=== PATIENT | male | born 1975 ===

== ENCOUNTER 2021-10-25 15:47 | Outpatient (REF) | payer OTHER, SELFPAY ==
[2021-10-25 16:06] LABS: COVID-19 Test Negative (Negative); IDNOW Serial# 16C4AD1C
== END 2021-10-25 15:48 | disposition home or self-care (01) ==
LOC: HO.LAB 15:47
PROVIDERS: Visit Provider Internal Medicine
DX: Z20.822 Contact with and (suspected) exposure to COVID-19 (principal)
CPT/HCPCS: 87635; C9803

== ENCOUNTER → 2022-10-22 09:35 | Outpatient (BNVA) | payer OTHER, SELFPAY | PROVIDERS: PCP Family Medicine; Visit Provider Physician Assistant | DX: Z13.89 Encounter for screening for other disorder (principal) ==

== ENCOUNTER → 2022-11-01 13:15 | Outpatient (BNVA) | payer OTHER, SELFPAY | PROVIDERS: PCP Family Medicine; Visit Provider Physician Assistant Surgical | DX: E66.01 Morbid (severe) obesity due to excess calories (principal); Z68.42 Body mass index [BMI] 45.0-49.9, adult; Z71.3 Dietary counseling and surveillance | CPT/HCPCS: 99202 ==

== ENCOUNTER → 2022-11-22 11:18 | Outpatient (BNVA) | payer OTHER, SELFPAY | PROVIDERS: PCP Family Medicine; Visit Provider Physician Assistant Surgical | DX: Z11.0 Encounter for screening for intestinal infectious diseases (principal); E66.01 Morbid (severe) obesity due to excess calories; Z68.42 Body mass index [BMI] 45.0-49.9, adult | CPT/HCPCS: 99211; 99212 ==

== ENCOUNTER 2022-11-22 18:13 | Outpatient (REF) | payer OTHER, SELFPAY ==
[2022-11-24 14:10] LABS: H Pylori Breath Test Positive (Negative)
== END 2022-11-22 18:14 | disposition home or self-care (01) ==
LOC: HO.LNP 18:13
PROVIDERS: Visit Provider Physician Assistant Surgical
DX: E66.01 Morbid (severe) obesity due to excess calories (principal)
CPT/HCPCS: 83013

== ENCOUNTER 2022-11-26 09:40 | Outpatient (REF) | payer OTHER, SELFPAY ==
--- NOTE | ~2022-11-26 | XR_ITS ---
EXAMINATION: XR CHEST CLINICAL INFORMATION: Reason for Exam E66.01 - Morbid (severe) obesity due to excess calories COMPARISON: None TECHNIQUE: 2 views of the chest FINDINGS: Clear lungs. No pneumothorax or pleural effusion. Borderline enlarged cardiac silhouette. XR/XR chest 2V IMPRESSION: Borderline enlarged cardiac silhouette.
--- NOTE | 2022-11-26 09:48 | ECG_ITS ---
Test Reason : Morbid obesity Blood Pressure : / mmHG Vent. Rate : 072 BPM Atrial Rate : 072 BPM P-R Int : 140 ms QRS Dur : 084 ms QT Int : 392 ms P-R-T Axes : 032 040 036 degrees QTc Int : 429 ms Normal sinus rhythm Normal ECG No previous ECGs available Referred By: Rhys Pitts Electronically Signed By:MERY SHETTY
[2022-11-26 09:59] LABS: MANUAL DIFF FLAG NO
[2022-11-26 10:50] LABS: Basophils Absolute Auto 0.1 X10*3/uL (0.0-0.2); Basophils Percent Auto 0.6 % (0-2); Eosinophils Absolute Auto 0.2 X10*3/uL (0.0-0.4); Eosinophils Percent Auto 2.7 % (0-4); Hematocrit 44.3 % (42.0-52.0); Hemoglobin 14.1 g/dl (14.0-18.0); Imm Gran Abs Auto 0.02 X10*3/uL (0.00-0.03); Imm Gran Pct Auto 0.2 % (0.0-0.4); Lymphocytes Absolute Auto 1.9 X10*3/uL (1.2-4.9); Lymphocytes Percent Auto 22.8 % (20-40); Mean Corpuscular HGB Conc 31.8 g/dl (31.0-36.0); Mean Corpuscular Hemoglobin 27.2 pg (27.0-33.0); Mean Corpuscular Volume 85.4 fL (80.0-98.0); Mean Platelet Volume 11.8 fL (9.4-12.4); Monocytes Absolute Auto 0.7 X10*3/uL (0.1-1.2); Monocytes Percent Auto 8.3 % (2-11); Neutrophils Absolute Auto 5.4 x10*3/uL (2.0-8.3); Neutrophils Percent Auto 65.4 % (45-73); Platelet Count 242 X10*3/uL (160-400); Red Blood Count 5.19 X10*6/uL (4.60-5.80); Red Cell Distribution Width 14.8 % (11.0-16.0); White Blood Count 8.3 X10*3/uL (4.8-10.8)
[2022-11-26 10:56] LABS: Estimated Average Glucose 131 mg/dL; Hemoglobin A1c % 6.2 %
[2022-11-26 11:42] LABS: Alanine Aminotransferase 40 U/L (0-40); Albumin Level 3.9 g/dL (3.5-5.0); Alkaline Phosphatase 92 U/L (39-117); Anion Gap 13 (12-20); Aspartate Amino Transferase 28 U/L (5-37); Bilirubin Total 0.5 mg/dL (0.0-1.0); Blood Urea Nitrogen 14 mg/dL (9-16); C Reactive Protein 3.14 mg/dL (< or = 0.50); Calcium 8.8 mg/dL (8.4-10.2); Carbon Dioxide 27 mmol/L (22-29); Chloride 105 mmol/L (96-108); Cholesterol 123 mg/dL; Estimated Glomerular Filt Rate > 60; Glucose Random 104 mg/dL (60-115); HDL Cholesterol 41 mg/dL; Iron 46 mcg/dL (45-160); LDL Cholesterol Calculated 67 mg/dl; Percent Iron Saturation 17 % (15-50); Potassium 4.3 mmol/L (3.3-5.1); Sodium 141 mmol/L (135-145); Total Iron Binding Capacity 276 mcg/dL (228-428); Total Protein 6.8 g/dL (6.5-8.0); Triglycerides 75 mg/dL; Unsaturated Iron Binding 230 ug/dL
[2022-11-26 12:24] LABS: Ferritin 64 ng/mL (20-250); Folate 8.1 ng/mL (> or = 4.0); Insulin 17 uU/mL (2-29); TSH reflex Free T4 1.89 uIU/mL (0.32-4.0); Vitamin B12 520 pg/mL (200-900); Vitamin D 25-OH Total 9.9 ng/mL (>30)
[2022-11-28 13:53] LABS: Calcium (PTHI) 9.5 mg/dL (8.6-10.3); PTHI 36 pg/mL (16-77)
[2022-11-29 12:33] LABS: Vitamin B1 8 nmol/L (8-30)
[2022-11-29 12:39] LABS: Zinc 68 mcg/dL (60-130)
[2022-11-29 19:13] LABS: Vitamin A 37 mcg/dL (38-98)
== END 2022-11-26 09:41 | disposition home or self-care (01) ==
LOC: HO.LAB 09:40
PROVIDERS: PCP Family Medicine; Visit Provider Physician Assistant Surgical
DX: E66.01 Morbid (severe) obesity due to excess calories (principal)
CPT/HCPCS: 36415; 71046; 80053; 80061; 82306; 82607; 82728; 82746; 83036; 83525; 83540; 83970; 84425; 84443; 84590; 84630; 85025; 86140; 93005

== ENCOUNTER → 2022-12-10 10:22 | Outpatient (BNVA) | payer OTHER, SELFPAY | PROVIDERS: PCP Family Medicine; Visit Provider Dietitian, Registered | DX: E66.01 Morbid (severe) obesity due to excess calories (principal); Z68.42 Body mass index [BMI] 45.0-49.9, adult; Z71.3 Dietary counseling and surveillance | CPT/HCPCS: 97802 ==

== ENCOUNTER 2022-12-18 09:55 | Outpatient (REF) | payer OTHER, SELFPAY ==
--- NOTE | ~2022-12-18 | US_ITS ---
EXAMINATION: US COMPLETE ABDOMEN WITH LIVER ELASTOGRAPHY CLINICAL INFORMATION: Morbid/severe obesity due to excess calories. COMPARISON: None available. TECHNIQUE: Real-time imaging of the abdominal viscera. Noninvasive ultrasound liver fibrosis assessment is performed using Dotty ElastPQ point quantification shear wave elastography (2D-SWE) with a C5-2 MHz transducer. Multiple elastography samples are obtained. FINDINGS: PANCREAS: Normal. The visualized pancreatic head and body are normal in appearance. The remainder of the pancreas is obscured from visualization by the overlying bowel gas. ABDOMINAL AORTA: The proximal, middle, and distal aortic segments are normal in caliber. INFERIOR VENA CAVA: Visualized portions are normal. LIVER: The liver demonstrates normal size, contour and increased echogenicity. No focal lesion or intrahepatic biliary duct dilatation. The right lobe measures 20.7 cm in length. The left lobe measures 15.6 cm in length. Portal flow is hepatopedal. Shear wave liver elastography median stiffness is 1.64 m/s (reference: normal median stiffness is 1.3 m/s or less). IQR/median stiffness to assess sampling precision is 0.08 (reference: good quality data set is IQR/median stiffness of 0.15 or less). GALLBLADDER: Normal. The gallbladder is physiologically distended without evidence of stones, sludge, polyps, wall thickening or pericholecystic fluid. COMMON BILE DUCT: Normal in caliber measuring 0.34 cm in diameter. RIGHT KIDNEY: Normal. No hydronephrosis. No renal calculi or focal parenchymal lesions. The kidney measures 12.0 cm in maximum dimension. LEFT KIDNEY: Normal. No hydronephrosis. No renal calculi or focal parenchymal lesions. The kidney measures 12.4 cm in maximum dimension. SPLEEN: Normal. The spleen measures 14.4 cm in maximum dimension. FREE FLUID: None. US/US abdomen comp w elastography IMPRESSION: 1. Mild hepatic steatosis without focal lesion. The rest of the abdominal ultrasound is unremarkable. 2. Liver elastography: Median liver stiffness measures 1.64 m/s corresponding to cACLD ruled out. REFERENCE: Society of Radiologists in Ultrasound Liver Stiffness Thresholds (2019): LIVER STIFFNESS THRESHOLDS: *Liver Stiffness equal or less than 1.3 m/s: High probability of being normal. *Liver Stiffness less than 1.7 m/s: In the absence of other known clinical signs, rules out compensated advanced chronic liver disease. *Liver Stiffness 1.7-2.1 m/s: Suggestive of compensated advanced chronic liver disease but need further test for confirmation. *Liver Stiffness over 2.1 m/s: Rules in compensated advanced chronic liver disease. *Liver Stiffness over 2.4 m/s: Suggestive of clinically significant portal hypertension. QUALITY OF DATA SET: *IQR/Median value equal or less than 0.15 implies a quality data set. *IQR/Median value over 0.15 implies a poor quality data set. SIGNIFICANT CHANGE FROM PRIOR EXAM: Significant change if liver stiffness measurement is 10% or greater from prior exam. OTHER CONSIDERATIONS: The stage of liver fibrosis may be overestimated in the setting of acute hepatitis, liver inflammation, elevated liver function tests, hepatic vascular congestion, obstructive cholestasis, non-fasting state, and infiltrative diseases such as amyloidosis and lymphoma. In some patients with NAFLD, the liver stiffness thresholds for compensated advanced chronic liver disease may be lower. In causes other than viral hepatitis and NAFLD, liver stiffness thresholds are not well established.
--- NOTE | ~2022-12-18 | FL_ITS ---
EXAMINATION: FL UPPER GI SERIES CLINICAL INFORMATION: Bariatric service evaluation. E66.01. COMPARISON: None TECHNIQUE: Upper GI series is performed using fluoroscopic evaluation in addition to multiple fluoroscopic spot views. The patient is imaged both upright and prone and using both thick and thin barium sulfate along with effervescent granules. Barium pill challenge also performed. Fluoroscopy time: 1.6 minutes DAP: 41.81 Gycm2 Fluoroscopic spot images: 15 FINDINGS: There is normal esophageal motility. There is no obstruction, stricture, ulceration, or hernia. There is mild gastroesophageal reflux only seen during water siphon test into the lower thoracic esophagus. No spontaneous reflux. Barium pill rapidly passes from mouth to stomach without delay. The stomach shows no thickened folds or ulcer crater or outlet obstruction. The duodenal bulb is pliable and without ulcer crater or scarring. The post bulbar duodenum the jejunal mucosal pattern are unremarkable. FL/FL upper GI w air IMPRESSION: -Mild gastroesophageal reflux only seen during water siphon test. No hernia. -No ulceration or scarring.
== END 2022-12-18 09:56 | disposition home or self-care (01) ==
LOC: HO.US 09:55
PROVIDERS: PCP Family Medicine; Visit Provider Physician Assistant Surgical
DX: Z01.818 Encounter for other preprocedural examination (principal); E66.01 Morbid (severe) obesity due to excess calories; K21.9 Gastro-esophageal reflux disease without esophagitis
CPT/HCPCS: 74246; 76705; 76981

== ENCOUNTER 2022-12-20 10:52 | Outpatient (REF) | payer OTHER, SELFPAY ==
[2022-12-21 11:32] LABS: H Pylori Breath Test Negative (Negative)
== END 2022-12-20 10:53 | disposition home or self-care (01) ==
LOC: HO.LNP 10:52
PROVIDERS: PCP Family Medicine; Visit Provider Physician Assistant Surgical
DX: Z01.818 Encounter for other preprocedural examination (principal); E66.01 Morbid (severe) obesity due to excess calories; A04.8 Other specified bacterial intestinal infections
CPT/HCPCS: 83013; 99211; 99212

== ENCOUNTER → 2023-01-13 11:00 | Outpatient (BNVA) | payer OTHER, SELFPAY | PROVIDERS: PCP Family Medicine; Visit Provider Counselor Mental Health ==

== ENCOUNTER → 2023-02-04 15:44 | Outpatient (BNVA) | payer OTHER, SELFPAY | PROVIDERS: PCP Family Medicine; Visit Provider Physician Assistant Surgical | DX: E66.01 Morbid (severe) obesity due to excess calories (principal); I10 Essential (primary) hypertension; Z68.42 Body mass index [BMI] 45.0-49.9, adult; Z79.891 Long term (current) use of opiate analgesic; Z79.899 Other long term (current) drug therapy | CPT/HCPCS: 99212 ==

== ENCOUNTER 2023-02-06 14:03 | Emergency (ER) | payer OTHER, SELFPAY ==
[2023-02-06 14:07] VITALS: BP 155/88; PULSE 80; RESP 16; TEMP 36.8; O2SAT 98; BMI 46.8
--- NOTE | 2023-02-06 14:41 | ECG_ITS ---
Test Reason : HTN Blood Pressure : / mmHG Vent. Rate : 069 BPM Atrial Rate : 069 BPM P-R Int : 154 ms QRS Dur : 088 ms QT Int : 398 ms P-R-T Axes : 013 027 035 degrees QTc Int : 426 ms Normal sinus rhythm Normal ECG When compared with ECG of 26-NOV-2022 09:59, No significant change was found Referred By: Jen Acosta Electronically Signed By:Tex Oglesby
[2023-02-06 15:02] LABS: MANUAL DIFF FLAG NO
[2023-02-06 15:09] LABS: Basophils Percent Auto 0.4 % (0-2); Eosinophils Absolute Auto 0.2 X10*3/uL (0.0-0.4); Eosinophils Percent Auto 1.4 % (0-4); Hematocrit 42.7 % (42.0-52.0); Hemoglobin 13.8 g/dl (14.0-18.0); Imm Gran Abs Auto 0.03 X10*3/uL (0.00-0.03); Imm Gran Pct Auto 0.3 % (0.0-0.4); Lymphocytes Absolute Auto 1.7 X10*3/uL (1.2-4.9); Lymphocytes Percent Auto 15.9 % (20-40); Mean Corpuscular HGB Conc 32.3 g/dl (31.0-36.0); Mean Corpuscular Hemoglobin 27.1 pg (27.0-33.0); Mean Corpuscular Volume 83.7 fL (80.0-98.0); Mean Platelet Volume 11.9 fL (9.4-12.4); Monocytes Absolute Auto 0.8 X10*3/uL (0.1-1.2); Platelet Count 239 X10*3/uL (160-400); Red Cell Distribution Width 14.2 % (11.0-16.0); White Blood Count 10.7 X10*3/uL (4.8-10.8)
[2023-02-06 15:22] LABS: Alanine Aminotransferase 28 U/L (0-40); Albumin Level 3.7 g/dL (3.5-5.0); Alkaline Phosphatase 98 U/L (39-117); Anion Gap 14 (12-20); Aspartate Amino Transferase 17 U/L (5-37); Bilirubin Total 0.3 mg/dL (0.0-1.0); Blood Urea Nitrogen 13 mg/dL (9-16); Calcium 9.1 mg/dL (8.4-10.2); Carbon Dioxide 26 mmol/L (22-29); Chloride 106 mmol/L (96-108); Creatinine Clr Calc Pharmacy 158.8; Estimated Glomerular Filt Rate > 60; Glucose Random 115 mg/dL (60-115); Magnesium 1.9 mg/dL (1.6-2.6); Potassium 4.3 mmol/L (3.3-5.1); Sodium 142 mmol/L (135-145); Total Protein 6.5 g/dL (6.5-8.0)
[2023-02-06 15:35] LABS: COVID-19 Test Negative (Negative); IDNOW Serial# BCCEAD1C
[2023-02-06 15:43] LABS: Troponin-I High Sensitivity < 2.7 ng/L (<3.5-35.0)
--- NOTE | 2023-02-06 16:25 | ED_ITS ---
HPI - General Adult General Chief complaint: Headache Stated complaint: high bp Time Seen by Provider: 02/06/23 16:24 Source: patient and family Limitations: no limitations History of Present Illness HPI narrative: 47-year-old male presents ER with a longstanding history of hypertension. Family member checked his blood pressure at home and it was elevated so they called the PCP through [facility] was advised to come the ER for further evaluation on his way to the ER patient felt some shortness of breath and headache. Patient states those symptoms have somewhat resolved. Patient states he only takes metoprolol for hypertension is compliant with that medication. Patient family states he is prediabetic but not on a medication at this time. At this time no chest pain or shortness of breath. Symptoms mild to moderate Related Data Home Medications Medication Instructions Recorded Confirmed acetaminophen 500 mg tablet 1,000 mg PO Q6H PRN fever 11/22/22 02/04/23 aspirin 81 mg tablet,delayed 81 mg PO DAILY 11/22/22 02/04/23 release buspirone 15 mg tablet 7.5 - 15 mg PO BID PRN anxiety 11/22/22 02/04/23 gabapentin 800 mg tablet 800 mg PO TID 11/22/22 02/04/23 methocarbamol 500 mg tablet 500 mg PO TID 11/22/22 02/04/23 metoprolol succinate 25 mg 12.5 mg PO DAILY 11/22/22 02/04/23 tablet,extended release 24 hr nortriptyline 50 mg capsule 50 mg PO BEDTIME 11/22/22 02/04/23 oxycodone 5 mg tablet 5 mg PO Q4H 11/22/22 02/04/23 tamsulosin 0.4 mg capsule 0.4 mg PO DAILY 11/22/22 02/04/23 topiramate 100 mg tablet 100 mg PO BID 11/22/22 02/04/23 Previous Rx's Medication Instructions Recorded cholecalciferol (vitamin D3) 125 125 mcg PO DAILY #90 caps 11/26/22 mcg (5,000 unit) capsule Allergies Allergy/AdvReac Type Severity Reaction Status Date / Time Opioids - Morphine Analogues Allergy Mild Swelling Verified 02/04/23 15:50 Review of Systems Review of Systems: General: No fever, no chills Ophthalmology: No vision changes, no discharge ENT: No sore throat, no ear pain Cardiovascular: No chest pain, no peripheral edema, no shortness of breath Respiratory: Patient had episode of shortness of breath which has since resolved no cough fever chills Muscle skeletal: No malaise, no back pain, no neck pain, no extremity pain GI: No abdominal pain: no nausea vomiting, no diarrhea Psychiatric: No depression, no suicidal ideation, no homicidal ideation Skin: No rash Neuro: Headache resolved Immunology: No immunocompromised Hematology: No bleeding, no bruising PMFSH Past Medical History Source: obtained from family Surgical History History of surgery on arm Hx of leg amputation Family History Family History Mother Carpal tunnel syndrome Fibromyalgia Asthma Father No problems noted. Daughter Asthma Daughter Asthma Daughter Asthma Daughter Asthma Son Asthma Son Asthma Son Asthma Social History Social History Alcohol intake: never Patient Tobacco Use Status: Never used Tobacco Advance Directives: No Physical Exam ED Vital Signs: Vital Signs - 24 hr 02/06/23 14:07 Temperature 98.3 F Pulse Rate 80 Respiratory Rate 16 Blood Pressure 155/88 H Pulse Oximetry 98 Oxygen Delivery Method Room Air BMI result Body Mass Index 46.8 General appearance: Awake, alert, cooperative, in no acute distress Skin: Warm, dry, no rash Eyes: PERRL, EOMI, no icterus, red reflex present ENT: Oropharynx normal, uvula midline Neck: Soft supple full range of motion Pulmonary: Breath sounds clear to auscultation bilaterally, no accessory muscle use Cardiovascular: Regular rate and rhythm, no murmurs and rubs Abdomen: Soft nontender, no rebound or guarding, positive bowel sounds Extremities: No deformity, nontender, no peripheral edema noted Neuro: Alert oriented x3, no focal deficit Psych: Normal affect Course Course Course Narrative: Hypertensive urgency Hypertensive emergency ACS less likely Dizziness Anxiety 47-year-old male with a history of hypertension presents with symptoms of elevated blood pressure when family Nicolás check at home. After pressure was noted to be elevated patient began to have symptoms of a headache and feeling somewhat nervous with some slight shortness of breath and chest discomfort. All symptoms have since resolved call PCP he was advised of the ER for further evaluation. EKG normal sinus rhythm at a rate of [address] elevation. All labs reviewed troponin less than 2.7 BUN creatinine are within normal limits CBC is unremarkable. Respiratory swab is negative Patient has follow-up with primary care tomorrow do not see any further need for workup at this time. Case discussed at length with patient and family would not add any antihypertensive medications at this time is patient seen the PCP in a.m.. Patient's blood pressure is much improved at this time. 16:45 all labs EKG and test results reviewed with patient and family we have made a decision as it care team to let the patient go at this time and follow-up with PCP tomorrow as scheduled. Overall a very low suspicion for ACS. Medical Decision Making Lab Data 02/06/23 14:56 02/06/23 14:56 Labs: Lab Results 02/06/23 02/06/23 02/06/23 Range/Units 14:56 14:56 14:56 WBC 10.7 (4.8-10.8) X10*3/uL RBC 5.10 (4.60-5.80) X10*6/uL Hgb 13.8 L (14.0-18.0) g/dl Hct 42.7 (42.0-52.0) % MCV 83.7 (80.0-98.0) fL MCH 27.1 (27.0-33.0) pg MCHC 32.3 (31.0-36.0) g/dl RDW 14.2 (11.0-16.0) % Plt Count 239 (160-400) X10*3/uL MPV 11.9 (9.4-12.4) fL Immature Gran % (Auto) 0.3 (0.0-0.4) % Neut % (Auto) 75.0 H (45-73) % Lymph % (Auto) 15.9 L (20-40) % [place] % (Auto) 7.0 (2-11) % Eos % (Auto) 1.4 (0-4) % Baso % (Auto) 0.4 (0-2) % Lymph # (Auto) 1.7 (1.2-4.9) X10*3/uL [place] # (Auto) 0.8 (0.1-1.2) X10*3/uL Eos # (Auto) 0.2 (0.0-0.4) X10*3/uL Baso # (Auto) 0.0 (0.0-0.2) X10*3/uL Abs Immat Gran (auto) 0.03 (0.00-0.03) X10*3/uL Absolute Neuts (auto) 8.0 (2.0-8.3) x10*3/uL Absolute Nucleated RBC 0.000 (0.0-0.012) X10*3/uL Nucleated RBC % (auto) 0.0 (0.0-0.2) /100WBC Sodium 142 (135-145) mmol/L Potassium 4.3 (3.3-5.1) mmol/L Chloride 106 (96-108) mmol/L Carbon Dioxide 26 (22-29) mmol/L Anion Gap 14 (12-20) BUN 13 (9-16) mg/dL Creatinine 0.83 (0.5-1.4) mg/dL Estim Creat Clear Calc 158.8 Estimated GFR > 60 Random Glucose 115 (60-115) mg/dL Calcium 9.1 (8.4-10.2) mg/dL Magnesium 1.9 (1.6-2.6) mg/dL Total Bilirubin 0.3 (0.0-1.0) mg/dL AST 17 (5-37) U/L ALT 28 (0-40) U/L Alkaline Phosphatase 98 (39-117) U/L Troponin I High Sens < 2.7 (<3.5-35.0) ng/L Total Protein 6.5 (6.5-8.0) g/dL Albumin 3.7 (3.5-5.0) g/dL COVID-19 ([facility]) (Negative) COVID-19 Clin Com 02/06/23 Range/Units 14:56 WBC (4.8-10.8) X10*3/uL RBC (4.60-5.80) X10*6/uL Hgb (14.0-18.0) g/dl Hct (42.0-52.0) % MCV (80.0-98.0) fL MCH (27.0-33.0) pg MCHC (31.0-36.0) g/dl RDW (11.0-16.0) % Plt Count (160-400) X10*3/uL MPV (9.4-12.4) fL Immature Gran % (Auto) (0.0-0.4) % Neut % (Auto) (45-73) % Lymph % (Auto) (20-40) % [place] % (Auto) (2-11) % Eos % (Auto) (0-4) % Baso % (Auto) (0-2) % Lymph # (Auto) (1.2-4.9) X10*3/uL [place] # (Auto) (0.1-1.2) X10*3/uL Eos # (Auto) (0.0-0.4) X10*3/uL Baso # (Auto) (0.0-0.2) X10*3/uL Abs Immat Gran (auto) (0.00-0.03) X10*3/uL Absolute Neuts (auto) (2.0-8.3) x10*3/uL Absolute Nucleated RBC (0.0-0.012) X10*3/uL Nucleated RBC % (auto) (0.0-0.2) /100WBC Sodium (135-145) mmol/L Potassium (3.3-5.1) mmol/L Chloride (96-108) mmol/L Carbon Dioxide (22-29) mmol/L Anion Gap (12-20) BUN (9-16) mg/dL Creatinine (0.5-1.4) mg/dL Estim Creat Clear Calc Estimated GFR Random Glucose (60-115) mg/dL Calcium (8.4-10.2) mg/dL Magnesium (1.6-2.6) mg/dL Total Bilirubin (0.0-1.0) mg/dL AST (5-37) U/L ALT (0-40) U/L Alkaline Phosphatase (39-117) U/L Troponin I High Sens (<3.5-35.0) ng/L Total Protein (6.5-8.0) g/dL Albumin (3.5-5.0) g/dL COVID-19 ([facility]) Negative (Negative) COVID-19 Clin Com See Note Discharge Plan Discharge Clinical Impression: Headache, Hypertension Patient Disposition: Home, Self-Care Instructions: Chronic Hypertension (ED) Additional Instructions: Return if symptoms worsen Follow-up with your PCP as scheduled for tomorrow Lab work today is within normal limits Return if any increased chest pain or shortness of breath Your PCP may add another antihypertensive medication Prescriptions: No Action cholecalciferol (vitamin D3) 125 mcg (5,000 unit) capsule 125 mcg PO DAILY Qty: 90 0RF oxycodone 5 mg tablet 5 mg PO Q4H gabapentin 800 mg tablet 800 mg PO TID nortriptyline 50 mg capsule 50 mg PO BEDTIME tamsulosin 0.4 mg capsule 0.4 mg PO DAILY aspirin 81 mg tablet,delayed release (DR/EC) 81 mg PO DAILY buspirone 15 mg tablet 7.5 - 15 mg PO BID PRN (Reason: anxiety) topiramate 100 mg tablet 100 mg PO BID metoprolol succinate 25 mg tablet extended release 24 hr 12.5 mg PO DAILY acetaminophen 500 mg tablet 1,000 mg PO Q6H PRN (Reason: fever) methocarbamol 500 mg tablet 500 mg PO TID
[2023-02-06 16:37] VITALS: BP 134/85; PULSE 71; RESP 20; TEMP 36.8; O2SAT 95
== END 2023-02-06 17:04 | disposition home or self-care (01) ==
PROVIDERS: Physician Assistant; Emergency Provider Emergency Medicine; PCP Family Medicine
DX: R51.9 Headache, unspecified (principal); I10 Essential (primary) hypertension; Z20.822 Contact with and (suspected) exposure to COVID-19; Z79.899 Other long term (current) drug therapy
CPT/HCPCS: 80053; 83735; 84484; 85025; 87635; 93005; 99283; 99284

== ENCOUNTER 2023-06-02 18:53 | Emergency (ER) | payer OTHER, SELFPAY ==
--- NOTE | ~2023-06-02 | XR_ITS ---
EXAMINATION: XR KNEE, LEFT CLINICAL INFORMATION: Swelling post fall COMPARISON: None available. TECHNIQUE: Four views of the left knee. FINDINGS: Small moderate size knee joint effusion. Degenerative changes seen with loss of joint space more so in the lateral compartment where small osteophyte formation. No acute fracture or dislocation XR/XR knee LT 4V IMPRESSION: Small to moderate size knee joint effusion.
[2023-06-02 20:21] VITALS: BP 119/69; PULSE 74; RESP 18; TEMP 36.6; O2SAT 95; BMI 47.1
--- NOTE | 2023-06-02 20:22 | ED.LOWEXIN ---
HPI - Extremity Injury (Lower) General Chief Complaint: Extremity Injury, Lower Stated Complaint: fell 9/10 left knee swollen Time Seen by Provider: 06/03/23 00:07 Source: patient and family Mode of arrival: wheelchair Limitations: no limitations History of Present Illness HPI Narrative: Patient comes to the emergency room complaining of left knee pain. Patient states that yesterday he fell, landed on his left knee. Patient denies any other injury. Patient states that his muscles on the left thigh are throbbing. Patient has a prosthetic right knee. Related Data Home Medications Medication Instructions Recorded Confirmed acetaminophen 500 mg tablet 1,000 mg PO Q6H PRN fever 11/22/22 02/04/23 aspirin 81 mg tablet,delayed 81 mg PO DAILY 11/22/22 02/04/23 release buspirone 15 mg tablet 7.5 - 15 mg PO BID PRN anxiety 11/22/22 02/04/23 gabapentin 800 mg tablet 800 mg PO TID 11/22/22 02/04/23 methocarbamol 500 mg tablet 500 mg PO TID 11/22/22 02/04/23 metoprolol succinate 25 mg 12.5 mg PO DAILY 11/22/22 02/04/23 tablet,extended release 24 hr nortriptyline 50 mg capsule 50 mg PO BEDTIME 11/22/22 02/04/23 oxycodone 5 mg tablet 5 mg PO Q4H 11/22/22 02/04/23 tamsulosin 0.4 mg capsule 0.4 mg PO DAILY 11/22/22 02/04/23 topiramate 100 mg tablet 100 mg PO BID 11/22/22 02/04/23 Previous Rx's Medication Instructions Recorded cholecalciferol (vitamin D3) 125 125 mcg PO DAILY #90 caps 11/26/22 mcg (5,000 unit) capsule ibuprofen 600 mg tablet 600 mg PO TID PRN fever or pain 06/03/23 #20 tabs Allergies Allergy/AdvReac Type Severity Reaction Status Date / Time Opioids - Morphine Analogues Allergy Mild Swelling Verified 02/04/23 15:50 Review of Systems Review of Systems: Constitutional : No Weight loss, No Fever, No Chills, No Night Sweats, No Fatigue, No Malaise ENT/Mouth : No Hearing loss, No Ear Pain, No Nasal Congestion, No Sinus Pain, No Hoarseness, No sore throat, No Rhinorrhea, No Swallowing Difficulty Eyes: No Eye Pain, No Swelling, No Redness, No Foreign Body, No Discharge, No Vision Changes Cardiovascular : No Chest Pain, No SOB, No Dyspnea on Exertion, No Orthopnea, No Edema, No Palpitations Respiratory : No Cough, No Sputum, No Wheezing, No Smoke Exposure, No Dyspnea Gastrointestinal : No Nausea, No Vomiting, No Diarrhea, No Constipation, No abdominal Pain, No Hematochezia, No Melena Genitourinary : no irregular bleeding, No Dysuria, No Urinary Frequency, No Hematuria, No Urinary Incontinence, No Urgency, No Flank Pain, No Urinary Flow Changes, No Hesitancy Musculoskeletal : Complaining of left knee pain, No Myalgias, No Joint Swelling Skin : No Skin Lesions, No rash Neuro : No Weakness, No Numbness, No Paresthesias, No Loss of Consciousness, No Dizziness, No Headache Psych : No Anxiety/Panic, No Depression, No SI/HI/AH/VH, No Social Issues, Heme/Lymph: No Bruising, No Bleeding,No Lymphadenopathy Endocrine : No Polyuria, No Polydipsia, No Temperature Intolerance [facility] Past Medical History Medical History (Updated 06/03/23 @ 00:22 by Lexy German MD) HTN (hypertension) H. pylori infection Morbid obesity Surgical History Hx of leg amputation History of surgery on arm Family History Family History Mother Carpal tunnel syndrome Fibromyalgia Asthma Father No problems noted. Daughter Asthma Daughter Asthma Daughter Asthma Daughter Asthma Son Asthma Son Asthma Son Asthma Social History Social History Alcohol intake: never Patient Tobacco Use Status: Never used Tobacco Advance Directives: No Advance Directives Information Provided: Yes Physical Exam Vital Signs: Vital Signs: Last Vital Signs Temp 97.9 F 06/02/23 20:21 Pulse 74 06/02/23 20:21 Resp 18 06/02/23 20:21 BP 119/69 06/02/23 20:21 Pulse Ox 95 06/02/23 20:21 O2 Del Method Room Air 06/02/23 20:21 BMI result Body Mass Index 47.1 Const: Other: Appearance: Alert. Oriented X3. No acute distress. Eyes: Pupils equal, round and reactive to light. ENT: Pharynx normal. Neck: Normal inspection. Neck supple. No lymph nodes noted. No crepitus CVS: Normal heart rate and rhythm. Pulses normal. Normal S1 and S2 Respiratory: No respiratory distress. Breath sounds normal. No Wheezing. No rales Abdomen: Soft and nontender. No rigidity. No distention. Skin: Skin warm and dry. Normal skin color. Normal skin turgor. Extremities: No lower extremity edema. Prostatic lower extremity on the right leg. There is mild swelling around the right knee, seems to be a small effusion. No calf pain, no pain on the anterior aspect of the thigh, mild pain on the posterior aspect of the thigh with palpation Neuro: Oriented X 3. No motor deficit. No sensory deficit. Moving all extremities. No slurred speech. CN 2 through 12 grossly intact Psych: calm, cooperative, normal affect Course Course Course Narrative: RME - 47 yo Marshallese speaking male with history of morbid obesity, HTN, VIVEINNE who presents to the ER for evaluation of left knee pain after he tripped and fell twice yesterday. Limited weight bearing since, has some swelling per his report Plan: x-ray left knee Medical Decision Making Medical Decision Making [facility] Narrative: -my interpretation of x-ray of the knee: Normal alignment, no obvious fracture, small effusion -patient was given a dose of IM Toradol -patient likely has a contusion causing the pain. -crutches were offered, patient declined Independent Interpretation I performed an independent interpretation of an: Plain X-Ray Radiology Impression Discussion of test interpretation with radiology: I have reviewed the radiologist's reading. Radiologist Impression: Small moderate size knee joint effusion. Degenerative changes seen with loss of joint space more so in the lateral compartment where small osteophyte formation. No acute fracture or dislocation XR/XR knee LT 4V IMPRESSION: Small to moderate size knee joint effusion. Discharge Plan Discharge Clinical Impression: Contusion of knee Patient Disposition: Home, Self-Care Instructions: Knee Pain (ED), R.I.C.E. Treatment (ED) Additional Instructions: Please follow-up with your primary care physician tomorrow. If you have any worsening or new symptoms, please return to the emergency room or call 911 Prescriptions: New ibuprofen 600 mg tablet 600 mg PO TID PRN (Reason: fever or pain) Qty: 20 0RF No Action cholecalciferol (vitamin D3) 125 mcg (5,000 unit) capsule 125 mcg PO DAILY Qty: 90 0RF oxycodone 5 mg tablet 5 mg PO Q4H gabapentin 800 mg tablet 800 mg PO TID nortriptyline 50 mg capsule 50 mg PO BEDTIME tamsulosin 0.4 mg capsule 0.4 mg PO DAILY aspirin 81 mg tablet,delayed release (DR/EC) 81 mg PO DAILY buspirone 15 mg tablet 7.5 - 15 mg PO BID PRN (Reason: anxiety) topiramate 100 mg tablet 100 mg PO BID metoprolol succinate 25 mg tablet extended release 24 hr 12.5 mg PO DAILY acetaminophen 500 mg tablet 1,000 mg PO Q6H PRN (Reason: fever) methocarbamol 500 mg tablet 500 mg PO TID
[2023-06-03] MEDS: Ketorolac Tromethamine 60 MG/2 ML VIAL IM (00:57)
== END 2023-06-03 01:05 | disposition home or self-care (01) ==
PROVIDERS: Emergency Provider Emergency Medicine; PCP Family Medicine
DX: S80.02XA Contusion of left knee, initial encounter (principal); W18.30XA Fall on same level, unspecified, initial encounter; M25.462 Effusion, left knee; I10 Essential (primary) hypertension; E66.01 Morbid (severe) obesity due to excess calories; Z68.42 Body mass index [BMI] 45.0-49.9, adult; Z79.82 Long term (current) use of aspirin; Z79.899 Other long term (current) drug therapy; Y93.9 Activity, unspecified; Y92.9 Unspecified place or not applicable; Y99.9 Unspecified external cause status
CPT/HCPCS: 73564; 96372; 99283; 99284; J1885

== ENCOUNTER 2023-08-05 12:58 | Outpatient (AMB) | payer OTHER, SELFPAY ==
--- NOTE | 2023-08-05 13:01 | MHC.OFFVISWM ---
Intake VS Expanded 08/05/23 13:06 BP 139/75 Blood Pressure Location Rt brachial Blood Pressure Position Sitting Pulse 95 Pulse Source Pulse Oximeter Temp 96.7 F L Temperature Source Tympanic Pulse Oximetry 97 Oxygen Delivery Method Room Air Height 5 ft 9 in Weight 293 lb 9.6 oz BMI 43.4 Intake Visit Reasons: (ov) f/u swl Diversional Therapist Required: No Allergies Opioids - Morphine Analogues Allergy (Mild, Verified 08/05/23 13:01) Swelling Medication List - Last Reconciled 08/05/23 by NABILA Valero acetaminophen 1,000 mg PO Q6H PRN aspirin 81 mg PO DAILY buspirone 7.5 - 15 mg PO BID PRN cholecalciferol (vitamin D3) 125 mcg PO DAILY gabapentin 800 mg PO TID ibuprofen 600 mg PO TID PRN methocarbamol 500 mg PO TID metoprolol succinate ER 12.5 mg PO DAILY nortriptyline 50 mg PO BEDTIME oxycodone 5 mg PO Q4H tamsulosin 0.4 mg PO DAILY topiramate 100 mg PO BID HPI HPI Comments History of Present Illness Details The patient is a pleasant 47 year old male who returns to the clinic for pre-operative surgical weight loss management. Today's weight is 293.6 pounds and BMI is 44.8. (using amputee BMI calculator and a right BKA prosthetic weight of 5.4 pounds) There has been a weight loss of 35.8 pounds since initiating the surgical weight loss program on 10/22/22 with a total body weight loss of 10.8 %. He has not been seen in the office sine 02/04/23 as he was in [place] taking care of his parents. Pre op work up completed as follows: SWL classes:? 04/29 BH appts: leigh ?cleared 01/13/23 ? RD appts: f/u 12/31/22 Labs: 11/26/22-low D, A H. pylori: 11/22/22-pos, retest 12/20/22-neg CXR: 11/29/22-borberline cardiomegaly EK11/26/22-normal ABD U/S: 12/18/22-fatty liver UGI: 12/18/22-mild GERD The patient reports he is following the meal plan 2 shakes per day (orgain) 2 scoops per shake, 8 am.ZP bar 10 am, shake noon, zp bar 2 pm, meal 5 pm 10 forks/10 forks, zp bar 8 pm Current meal plan includes: 3 Orgain shakes ([employer], [employer], [employer], [email or web address]) First shake, 2 scoops in 8-10 oz low fat unsweetened almond milk at 9am-11am 1 protein bar (Zone Perfect bars at [employer], [facility], or [employer]) at 12pm-2pm. Second shake, 1 scoop in 8-10 oz unsweetened almond milk at 3pm-5pm Dinner at 6pm (10 forks of protein and 10 forks of salad/vegetables). Third shake with 1 scoop in 8-10 oz unsweetened almond milk at 7pm-9pm. 1 protein bar (Zone Perfect bars at [employer], [facility], or [employer]) at 9pm-11pm. Drinking 128 oz of water Current exercise plan includes: [employer], 5 days per week, treadmill, 30-60 min. ? [facility] Medical History (Updated 06/04/23 @ 00:03 by Lona Rolle) HTN (hypertension) H. pylori infection Morbid obesity Surgical History Hx of leg amputation History of surgery on arm Family History Mother Carpal tunnel syndrome Fibromyalgia Asthma Father No problems noted. Daughter Asthma Daughter Asthma Daughter Asthma Daughter Asthma Son Asthma Son Asthma Son Asthma Social History Alcohol intake: never Patient Tobacco Use Status: Never used Tobacco Review of Systems Const All systems reviewed & are unremarkable except as noted in HPI and below Physical Exam Const General: healthy appearing and no acute distress Resp Effort & Inspection: normal respiratory effort Auscultation: clear to auscultation bilaterally Cardio Rate: regular rate Rhythm: regular rhythm GI Auscultation: normal bowel sounds Extrem Other: R BKA w prosthetic Assessment & Plan Assessment & Plan (1) Morbid obesity: Code(s): E66.01 - Morbid (severe) obesity due to excess calories Plan: change meal plan to : 2 Orgain shakes ([employer], [employer], [facility], [employer]) First shake, 1 scoops in 8-10 oz low fat unsweetened almond milk at 8am-10am 1 protein bar (Zone Perfect bars) at 11pm-1pm. Second shake, 1 scoop in 8-10 oz unsweetened almond milk at 2pm-4pm Zone perfect bar 4 pm -6 pm Dinner at 6pm (9 forks of protein and 9 forks of salad/vegetables). 1 protein bar (Zone Perfect bars) at 8pm-10pm. drink 6 bottles of 16 oz water daily slowly Track calories at gym for a goal of 400 calories per day friday-friday Weigh prosthetic limb and text me the number Coding Level of Care Code Est Pt Level 4 (47943) Diagnoses Morbid obesity E66.01
[2023-08-05 13:06] VITALS: BP 139/75; PULSE 95; TEMP 35.9; O2SAT 97; BMI 43.4
== END 2023-08-05 13:35 | disposition home or self-care (01) ==
PROVIDERS: PCP Family Medicine; Visit Provider Physician Assistant Surgical
DX: E66.01 Morbid (severe) obesity due to excess calories (principal); Z68.41 Body mass index [BMI] 40.0-44.9, adult
CPT/HCPCS: 99213

== ENCOUNTER → 2023-08-05 12:58 | Outpatient (BNVA) | payer OTHER, SELFPAY | PROVIDERS: PCP Family Medicine; Visit Provider Physician Assistant Surgical | DX: E66.01 Morbid (severe) obesity due to excess calories (principal); Z68.41 Body mass index [BMI] 40.0-44.9, adult | CPT/HCPCS: 99212 ==

== ENCOUNTER 2023-09-10 15:30 | Outpatient (AMB) | payer OTHER, SELFPAY ==
--- NOTE | 2023-09-10 15:37 | MHC.OFFVISWM ---
Intake VS Expanded 09/10/23 15:44 BP 138/66 Blood Pressure Location Rt brachial Blood Pressure Position Sitting Pulse 77 Pulse Source Pulse Oximeter Temp 96.5 F L Temperature Source Temporal Artery Scan Pulse Oximetry 95 Oxygen Delivery Method Room Air Height 5 ft 9 in Weight 292 lb 14.4 oz BMI 43.2 Intake Visit Reasons: (ov) f/u swl Allergies Opioids - Morphine Analogues Allergy (Mild, Verified 09/10/23 15:48) Swelling HPI HPI Comments History of Present Illness Details The patient is a pleasant 47 year old male who returns to the clinic for pre-operative surgical weight loss management. Today's weight is 292.9 pounds and BMI is 44.7. (using [employer] BMI calculator and a right BKA prosthetic weight of 5.6 pounds) There has been a weight loss of 36.5 pounds since initiating the surgical weight loss program on 10/22/22 with a total body weight loss of 11 %. He has been in the program for about 11 months, but he had to spend approximately for 5 months in [place] taking care of his parents at which time he was unable to exercise because of his responsibilities. He has since returned to [place] and has done very well. Pre op work up completed as follows: SWL classes:? 04/29 BH appts: leigh ?cleared 01/13/23 ? RD appts: cleared 01/13/23 Labs: 11/26/22-low D, A H. pylori: 11/22/22-pos, retest 12/20/22-neg CXR: 11/29/22-borberline cardiomegaly EK11/26/22-normal ABD U/S: 12/18/22-fatty liver UGI: 12/18/22-mild GERD The patient reports he is following the meal plan 2 shakes per day (orgain) 2 scoops per shake, 8 am.ZP bar 10 am, shake noon, zp bar 2 pm, meal 5 pm 10 forks/10 forks, zp bar 8 pm Current meal plan includes: 2 Orgain shakes ([employer], [employer], [facility], [email or web address]) First shake, 1 scoops in 8-10 oz low fat unsweetened almond milk at 8am-10am 1 protein bar (Zone Perfect bars) at 11pm-1pm. Second shake, 1 scoop in 8-10 oz unsweetened almond milk at 2pm-4pm Zone perfect bar 4 pm -6 pm Dinner at 6pm (10 forks of protein and 10 forks of salad/vegetables). 1 protein bar (Zone Perfect bars) at 8pm-10pm. 48-64 oz water Exercise: PF treadmill/bike 5 x per week, 400 calories Track calories at gym for a goal of 400 calories per day friday-friday Weigh prosthetic limb and text me the number PFSH Medical History (Updated 06/04/23 @ 00:03 by Lona Rolle) HTN (hypertension) H. pylori infection Morbid obesity Surgical History Hx of leg amputation History of surgery on arm Family History Mother Carpal tunnel syndrome Fibromyalgia Asthma Father No problems noted. Daughter Asthma Daughter Asthma Daughter Asthma Daughter Asthma Son Asthma Son Asthma Son Asthma Social History Alcohol intake: never Patient Tobacco Use Status: Never used Tobacco Physical Exam Vital Signs: Last Vital Signs Temp 96.5 F L 09/10/23 15:44 Pulse 77 09/10/23 15:44 BP 138/66 09/10/23 15:44 Pulse Ox 95 09/10/23 15:44 Oxygen Delivery Method Room Air 09/10/23 15:44 BMI result Body Mass Index 43.2 Assessment & Plan Assessment & Plan (1) Morbid obesity: Code(s): E66.01 - Morbid (severe) obesity due to excess calories Plan: Patient has done well, he has completed all of the preoperative requirements. We will refer him to Dr. Sparrow for continued preoperative care. Change meal plan: 2 Orgain shakes ([employer], [employer], [employer], [employer]) First shake, 1 scoops in 8-10 oz low fat unsweetened almond milk at 8am-10am 1 protein bar (Zone Perfect bars) at 11pm-1pm. Second shake, 1 scoop in 8-10 oz unsweetened almond milk at 2pm-4pm Zone perfect bar 4 pm -6 pm Dinner at 6pm (8 forks of protein and 8 forks of salad/vegetables). 1 protein bar (Zone Perfect bars) at 8pm-10pm. Encouraged to continue efforts at the gym and increased calories burn to 450-500 if he is able. Coding Level of Care Code Est Pt Level 3 (69461) Diagnoses Morbid obesity E66.01
[2023-09-10 15:44] VITALS: BP 138/66; PULSE 77; TEMP 35.8; O2SAT 95; BMI 43.2
== END 2023-09-10 16:11 | disposition home or self-care (01) ==
PROVIDERS: PCP Family Medicine; Visit Provider Physician Assistant Surgical
DX: E66.01 Morbid (severe) obesity due to excess calories (principal); Z68.41 Body mass index [BMI] 40.0-44.9, adult
CPT/HCPCS: 99213

== ENCOUNTER → 2023-09-10 15:30 | Outpatient (BNVA) | payer OTHER, SELFPAY | PROVIDERS: PCP Family Medicine; Visit Provider Physician Assistant Surgical | DX: E66.01 Morbid (severe) obesity due to excess calories (principal); Z68.41 Body mass index [BMI] 40.0-44.9, adult | CPT/HCPCS: 99212 ==

== ENCOUNTER 2023-10-06 08:28 | Outpatient (AMB) | payer OTHER, SELFPAY ==
--- NOTE | 2023-10-06 12:33 | MHC.OFFVISWM ---
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 Opioids - Morphine Analogues Allergy (Mild, Verified 10/06/23 12:45) Swelling Medication List - Last Reconciled 10/06/23 by Randy Sparrow MD acetaminophen 1,000 mg PO Q6H PRN aspirin 81 mg PO DAILY buspirone 7.5 - 15 mg PO BID PRN cholecalciferol (vitamin D3) 125 mcg PO DAILY gabapentin 800 mg PO TID ibuprofen 600 mg PO TID PRN methocarbamol 500 mg PO TID metoprolol succinate ER 12.5 mg PO DAILY nortriptyline 50 mg PO BEDTIME oxycodone 5 mg PO Q4H topiramate 100 mg PO BID HPI 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* 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 Details Start time: 12pm, End time: 12.54pm ?I spent 49 minutes speaking with the patient on the phone plus an additional 5 minutes reviewing and updating records for a total of 54 minutes HPI Comments History of Present Illness Details Overall weight loss: 24lbs, or 7.34% TBWL Is doing 2 Orgain protein shakes (1 scoop each in 8oz almond milk), 3 Zone Perfect protein bars and one meal (8 forks of meat and 8 forks of salad or vegetables) Exercise: Gym x5/week doing the treadmill for 200 calories or the bike for 200 calories PFSH Medical History (Updated 10/06/23 @ 12:50 by Randy Sparrow MD) Anxiety Depression Back pain HTN (hypertension) H. pylori infection Morbid obesity Surgical History Hx of leg amputation History of surgery on arm Family History Mother Carpal tunnel syndrome Fibromyalgia Asthma Father No problems noted. Daughter Asthma Daughter Asthma Daughter Asthma Daughter Asthma Son Asthma Son Asthma Son Asthma Social History Alcohol intake: never Patient Tobacco Use Status: Never used Tobacco Assessment & Plan Assessment & Plan (1) Morbid obesity: Code(s): E66.01 - Morbid (severe) obesity due to excess calories Plan: 1. Plan for lap sleeve gastrectomy including upper GI endoscopy. All tests has been completed and reviewed and the patient is cleared for the surgery. ?If diaphragmatic or ventral hernias are present at time of surgery, these will be repaired laparoscopically as well. Risks and complications were discussed in detail including possible conversion to an open procedure, anastomotic leak, bleeding requiring transfusion, small bowel obstruction, , DVT and pulmonary embolism, cardiac, or pulmonary complications, as extermination supervisor complications such as anastomotic ulcer, insufficient weight loss and vitamin deficiencies. I emphasized the importance of close follow-up, adherence to instructions and good communication. So far he has proven to be an excellent communicator and very compliant with all our directions accomplishing a great weight loss. I believe that he is an excellent candidate and he is ready. 2. Continue same nutritional and exercise plan 3. Send me weight measurements weekly on Mondays Telehealth Telehealth Location of provider rendering services: practice address Location of patient: address on file Patient Identification confirmed using: Name, : Yes Telehealth method: voice only Patient verbally consented to treatment: Yes Patient verbally consented to billing insurance company: Yes Patient informed of any privacy concerns related to visit: Yes Minutes spent on Phone/Video with Pt.: 54 Coding Level of Care Code Tele Est Pt Level 5 (49233) Diagnoses Morbid obesity E66.01 Time Spent (min) 54
[2023-10-06 12:37] VITALS: BMI 44.7
== END 2023-10-06 12:56 | disposition home or self-care (01) ==
LOC: HO.HBS 08:28
PROVIDERS: PCP Family Medicine; Visit Provider Surgery
DX: E66.01 Morbid (severe) obesity due to excess calories (principal); Z68.41 Body mass index [BMI] 40.0-44.9, adult
CPT/HCPCS: 99215

== ENCOUNTER → 2023-10-06 08:28 | Outpatient (BNVA) | payer OTHER, SELFPAY | PROVIDERS: PCP Family Medicine; Visit Provider Surgery ==

== ENCOUNTER 2023-10-27 08:10 | Outpatient (AMB) | payer OTHER, SELFPAY ==
[2023-10-27 13:39] VITALS: BMI 44.1
--- NOTE | 2023-10-27 13:39 | A.OFFVIS_ITS ---
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* Allergies Opioids - Morphine Analogues Allergy (Mild, Verified 10/27/23 13:45) Swelling Medication List - Last Reconciled 10/27/23 by Randy Sparrow MD acetaminophen 1,000 mg PO Q6H PRN aspirin 81 mg PO DAILY buspirone 7.5 - 15 mg PO BID PRN cholecalciferol (vitamin D3) 125 mcg PO DAILY gabapentin 800 mg PO TID ibuprofen 600 mg PO TID PRN methocarbamol 500 mg PO TID metoprolol succinate ER 12.5 mg PO DAILY nortriptyline 50 mg PO BEDTIME ondansetron 4 mg PO Q12H oxycodone 5 mg PO Q4H pantoprazole 40 mg PO DAILY polyethylene glycol 3350 (Miralax) 17 grams PO DAILY sucralfate 10 mL PO BID topiramate 100 mg PO BID HPI TV 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* HPI Details Start time: 1.24pm, End time: 1.54pm ?I spent 25 minutes speaking with the patient on the phone plus an additional 5 minutes reviewing and updating records for a total of 30 minutes HPI Comments History of Present Illness Details Overall weight loss: 28lbs, or 8.56% TBWL Is doing 2 Orgain protein shakes (1 scoop each in 8oz almond milk), 3 Zone Perfect protein bars and one meal (8 forks of meat and 8 forks of salad or vegetables) Exercise: Gym x5/week doing the treadmill for 200 calories or the bike for 200 calories PFSH Medical History (Updated 10/06/23 @ 12:50 by Randy Sparrow MD) Anxiety Depression Back pain HTN (hypertension) H. pylori infection Morbid obesity Surgical History Hx of leg amputation History of surgery on arm Family History Mother Carpal tunnel syndrome Fibromyalgia Asthma Father No problems noted. Daughter Asthma Daughter Asthma Daughter Asthma Daughter Asthma Son Asthma Son Asthma Son Asthma Social History Alcohol intake: never Patient Tobacco Use Status: Never used Tobacco Assessment & Plan Assessment & Plan (1) Morbid obesity: Code(s): E66.01 - Morbid (severe) obesity due to excess calories Plan: 1. Plan for lap sleeve gastrectomy including upper GI endoscopy. All tests has been completed and reviewed and the patient is cleared for the surgery. ?If diaphragmatic or ventral hernias are present at time of surgery, these will be repaired laparoscopically as well. 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 I emphasized the importance of close follow-up, adherence to instructions and good communication. So far he has proven to be an excellent communicator and very compliant with all our directions accomplishing a great weight loss. I believe that he is an excellent candidate and he is ready. 2. Preop prescriptions were provided and explained the purpose of each one. Need to be purchased preop. Start Pantoprazole now as you get it from the pharmacy, 1 pill per day. Sucralfate and Zofran are for after surgery as needed. 3. Bowel prep: please do 7 packets ?of Miralax mixing each one with a an 8oz glass of water, crystal light, gatorade zero, or propel ?on 11/02/23 and the same amount on 11/03/23. The Miralax you begin with one packet at a time in 8oz water or crystal light, gatorade zero, or propel ?as early in the day as you can and you do them back to back until you finish them. Continue the protein shakes during? the bowel prep. 4. Needs to purchase 1oz medicine cups . 5. Needs to purchase Children's liquid Tylenol for postop pain control. 6. He needs to stop the Aspirin as of tomorrow and the Gabapentin (last pill on Friday) as of Friday10/23/23. Avoid aspirin, motrin, Advil, Aleve, Ibuprofen, Naproxyn. Tylenol is OK. 7. He needs to purchase the Celebrate 4:1 protein shakes from the hospital's gift shop. 8. Will do basic preop blood work-up any day between Friday10/28/23 and Friday10/31/23 fasting for 12 hours and is scheduled to see the Anesthesiologist prior to the day of surgery. 9. Importance of adherence to postop folllow-up and recommendations was underscored and he understands that. 10. Check your blood pressure daily in the morning. IF the blood pressure is: Below 120/70: do not take the Metoprolol 121/71 to 130/80: take HALF Metoprolol Over 131/81: take the whole Metoprolol pill 11. Stop food and bars as of today 10/27/23 and continue with 5 Orgain protein shakes (TWO scoops EACH in 8oz almond milk) at 9am-11am, 12pm-2pm, 3pm-5pm, 6pm- 8pm and 9pm-11pm 12. No soups, broths or V8 13. The patient's?medical?history has been reviewed and they are considered low risk for post op DVT and therefore DVT prophylaxis is not considered necessary. Travel after surgery was reviewed. The patient has not disclosed any travel plans during the first 30 days after surgery and they have been advised that within the first 30 days after surgery any bus, plane, train or car travel over 2 hours in duration is contraindicated due to the possibility of developing blood clots from immobility. Any travel, needs to include periods of ambulation of 10 minutes in duration every 2 hours.? Patient was instructed to discuss any plans for travel during this period with their bariatric surgeon.? 14. Use your CPAP daily and bring it to the hospital with your mask 15. Please take at the day of surgery the following medications: Only the Metoprolol 16. Absolutely no smoking or vaping, or marijuana until the surgery and for at least the first 4 weeks. Only nicotine patches are allowed. 17. Send me weight measurement on the day of surgery on 11/04/23 before you go to the hospital. 18. Avoid any steroids by mouth for any reason. Let me know if someone prescribes them to you 19. These instructions supersede anything else you read in the handbook, anyth ing you watched in videos or classes or you were told by any other provider. If there is any conflict, you follow the above instructions and nothing else. Orders: Orders Prothrombin Time INR Today E66.01 - Morbid (severe) obesity due to excess calories, G47.33 - Obstructive sleep apnea (adult) (pediatric), I10 - Essential (primary) hypertension Partial Thromboplastin Time Today E66.01 - Morbid (severe) obesity due to excess calories, G47.33 - Obstructive sleep apnea (adult) (pediatric), I10 - Essential (primary) hypertension C Reactive Protein Today E66.01 - Morbid (severe) obesity due to excess calories, G47.33 - Obstructive sleep apnea (adult) (pediatric), I10 - Essential (primary) hypertension Lipid Panel Today E66.01 - Morbid (severe) obesity due to excess calories, G47.33 - Obstructive sleep apnea (adult) (pediatric), I10 - Essential (primary) hypertension Insulin Today E66.01 - Morbid (severe) obesity due to excess calories, G47.33 - Obstructive sleep apnea (adult) (pediatric), I10 - Essential (primary) hypertension Comprehensive Met. Panel Today E66.01 - Morbid (severe) obesity due to excess calories, G47.33 - Obstructive sleep apnea (adult) (pediatric), I10 - Essential (primary) hypertension TSH reflex Free T4 Today E66.01 - Morbid (severe) obesity due to excess calories, G47.33 - Obstructive sleep apnea (adult) (pediatric), I10 - Essential (primary) hypertension Type and Screen Today E66.01 - Morbid (severe) obesity due to excess calories, G47.33 - Obstructive sleep apnea (adult) (pediatric), I10 - Essential (primary) hypertension Hemoglobin A1c Today E66.01 - Morbid (severe) obesity due to excess calories, G47.33 - Obstructive sleep apnea (adult) (pediatric), I10 - Essential (primary) hypertension Complete Blood Count Auto Diff Today E66.01 - Morbid (severe) obesity due to excess calories, G47.33 - Obstructive sleep apnea (adult) (pediatric), I10 - Essential (primary) hypertension Medications: New polyethylene glycol 3350 (Miralax) 17 grams PO DAILY 14 ea 0RF Z01.818 - Encounter for other preprocedural examination pantoprazole 40 mg PO DAILY 90 tabs 0RF K21.9 - Gastro-esophageal reflux disease without esophagitis sucralfate 10 mL PO BID 600 mL 2RF K21.9 - Gastro-esophageal reflux disease without esophagitis ondansetron 4 mg PO Q12H 20 tabs 0RF nausea and vomiting R11.0 - Nausea Telehealth Telehealth Location of provider rendering services: practice address Location of patient: address on file Patient Identification confirmed using: Name, : Yes Telehealth method: voice only Patient verbally consented to treatment: Yes Patient verbally consented to billing insurance company: Yes Patient informed of any privacy concerns related to visit: Yes Minutes spent on Phone/Video with Pt.: 30 Coding Level of Care Code Tele Est Pt Level 4 (15247) Diagnoses Morbid obesity E66.01 Time Spent (min) 30
== END 2023-10-27 13:55 | disposition home or self-care (01) ==
LOC: HO.HBS 08:10
PROVIDERS: PCP Family Medicine; Visit Provider Surgery
DX: E66.01 Morbid (severe) obesity due to excess calories (principal); Z68.41 Body mass index [BMI] 40.0-44.9, adult
CPT/HCPCS: 99214

== ENCOUNTER → 2023-10-27 08:10 | Outpatient (BNVA) | payer OTHER, SELFPAY | PROVIDERS: PCP Family Medicine; Visit Provider Surgery ==

== ENCOUNTER 2023-10-29 09:11 | Outpatient (REF) | payer OTHER, SELFPAY ==
[2023-10-29 09:41] LABS: MANUAL DIFF FLAG NO
[2023-10-29 09:47] LABS: Basophils Absolute Auto 0.1 X10*3/uL (0.0-0.2); Basophils Percent Auto 0.7 % (0-2); Eosinophils Absolute Auto 0.2 X10*3/uL (0.0-0.4); Eosinophils Percent Auto 2.2 % (0-4); Hematocrit 44.4 % (42.0-52.0); Hemoglobin 14.6 g/dl (14.0-18.0); Imm Gran Abs Auto 0.02 X10*3/uL (0.00-0.03); Imm Gran Pct Auto 0.2 % (0.0-0.4); Lymphocytes Absolute Auto 1.9 X10*3/uL (1.2-4.9); Lymphocytes Percent Auto 20.3 % (20-40); Mean Corpuscular HGB Conc 32.9 g/dl (31.0-36.0); Mean Corpuscular Volume 82.2 fL (80.0-98.0); Mean Platelet Volume 11.5 fL (9.4-12.4); Monocytes Absolute Auto 0.6 X10*3/uL (0.1-1.2); Neutrophils Absolute Auto 6.4 x10*3/uL (2.0-8.3); Neutrophils Percent Auto 69.6 % (45-73); Platelet Count 242 X10*3/uL (160-400); Red Cell Distribution Width 14.6 % (11.0-16.0); White Blood Count 9.2 X10*3/uL (4.8-10.8)
[2023-10-29 09:54] LABS: Estimated Average Glucose 114 mg/dL; Hemoglobin A1c % 5.6 % (<6.0)
[2023-10-29 09:55] LABS: INTERNATIONAL NORM RATIO 1.1 (0.9-1.1); Prothrombin Time 13.3 SEC (11.1-13.3)
[2023-10-29 09:57] LABS: Partial Thromboplastin Time 32.3 SEC (26.0-36.8)
[2023-10-29 10:06] LABS: Alanine Aminotransferase 24 U/L (0-40); Albumin Level 3.9 g/dL (3.5-5.0); Alkaline Phosphatase 96 U/L (39-117); Anion Gap 11 (12-20); Aspartate Amino Transferase 16 U/L (5-37); Bilirubin Total 0.5 mg/dL (0.0-1.0); Blood Urea Nitrogen 15 mg/dL (9-16); C Reactive Protein 2.36 mg/dL (< or = 0.50); Calcium 9.5 mg/dL (8.4-10.2); Carbon Dioxide 28 mmol/L (22-29); Chloride 104 mmol/L (96-108); Cholesterol 130 mg/dL (<200); Estimated Glomerular Filt Rate > 60; Glucose Random 117 mg/dL (60-115); HDL Cholesterol 47 mg/dL (>40); LDL Cholesterol Calculated 66 mg/dL (<100); Sodium 139 mmol/L (135-145); Total Protein 7.5 g/dL (6.5-8.0); Triglycerides 86 mg/dL (<150)
[2023-10-29 10:21] LABS: Insulin 17 uU/mL (2-29); TSH reflex Free T4 1.41 uIU/mL (0.32-4.0)
== END 2023-10-29 09:12 | disposition home or self-care (01) ==
LOC: HO.LAB 09:11
PROVIDERS: Visit Provider Surgery
DX: E66.01 Morbid (severe) obesity due to excess calories (principal); I10 Essential (primary) hypertension; G47.33 Obstructive sleep apnea (adult) (pediatric)
CPT/HCPCS: 36415; 80053; 80061; 83036; 83525; 84443; 85025; 85610; 85730; 86140

== ENCOUNTER → 2023-10-31 09:10 | Outpatient (BNVA) | payer OTHER, SELFPAY | PROVIDERS: PCP Family Medicine; Visit Provider Physician Assistant Surgical ==

== ENCOUNTER 2023-11-04 06:06 | Inpatient (IN) | payer OTHER, SELFPAY ==
[2023-10-28 09:42] VITALS: BMI 44.0
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
[2023-11-04] VITALS (14 sets, daily range): BP systolic 123–149; BP diastolic 64–101; PULSE 70–102; RESP 14–20; TEMP 36.3–36.8; O2SAT 94–98; BMI 44.3; BMI 46.0
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
--- OUTSIDE RECORDS SUMMARY | 2023-11-04 06:09 | XMS_ITS | Continuity of Care Document ---
Author Name Unknown Organization [facility] Address [address] [place] [address]- Care Team Providers Care Solar Project Coordination Specialist Name Role Phone Shane Moon MD Primary Care Physician Encounter [facility] [place] Date(s): 06/10/19 - 10/08/19 [facility]/[address] [address]- [facility] Attending Physician: Shane Moon MD Admitting Physician: Shane Moon MD Allergies, Adverse Reactions, Alerts Substance Reaction Severity [...] Maintenance,03/09/18 10:23:07 EDT, Route to Pharmacy Electronically, [id number], [facility] [id number] Start Date: 03/09/18 Status: Ordered BiPAP Machine [...] 10/19/18 11:19:38 EST, Route to Pharmacy Electronically, [id number], [facility] [id number] Start Date: 10/19/18 Status: Ordered gabapentin 400 mg oral capsule 400 mg, 1, capsule, By Mouth, 3 times a day, discontinue gabapentin 800mg, # 90 capsule, Refills 11, Tot. Refills 11, Maintenance, 12/21/18 9:06:29 EDT, Route to Pharmacy Electronically, [id number], [facility] [id number] Start Date: 12/21/18 Status: Ordered Medrol 4 [...] 09/08/19 8:50:00 EST, Route to Pharmacy Electronically, [facility] #[id number], 174.5, cm, 08/31/19 11:34:00 EST, Height Start Date: 09/08/19 Status: Ordered oxybutynin 5 mg oral tablet 1-2 tablet, By Mouth, 2 times a day, # 90 tablet, 11 Refills, Maintenance, 09/16/19 9:09:00 EST, [facility] #[id number], 174.5, cm, 08/31/19 11:34:00 EST, Height Start Date: 09/16/19 Stop Date: 09/10/20 Status: Ordered oxyCODONE 10 mg oral tablet 1 tablet = 10 mg, By Mouth, Every 6 hours, for 28 days, to be dispensed not earlier than 09/15/19, # 112 tablet, 0 Refills, Acute 10/13/19 9:10:00 EST, 09/15/19 9:10:00 EST, [facility] #[id number], PRN pain; partial fill upon request; Dx [...] and tissue loss 8per titers 9per titers Social History Social History Type Response Smoking Status Never (less than 100 in lifetime) entered on: 06/10/19 Sex
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
--- OUTSIDE RECORDS SUMMARY | 2023-11-04 06:09 | XMS_ITS | Continuity of Care Document ---
Author Name Unknown Organization [facility] Address [address] [place] [address]- Care Team Providers Care Casino Cage Cashier Name Role Phone Sarai MORGAN, Shane Primary Care Physician [place] [facility] Date(s): 01/25/20 - 02/01/20 [facility]/[address] [address]- [facility] Attending Physician: Salvatore Benitez MD, I Allergies, Adverse Reactions, Alerts Substance Reaction Severity [...] Maintenance,10/11/19 8:52:00 EST, Route to Pharmacy Electronically, [facility] #[id number], 174.5, cm, 08/31/19 11:34:00 EST, Height Start Date: 10/11/19 Status: Ordered BiPAP Machine See Instructions, # 1 each, Maintenance, AutoBiPAP with EPAP min of 10 and IPAP max of 18 with PS of 6, 01/27/20 9:49:00 EDT, Compound Start Date: 01/27/20 Status: Ordered doxycycline hyclate 100 mg oral tablet 1 tablet = 100 mg, By Mouth, Every 12 hours, for 10 days, may take with food to minimize abdominal discomfort, # 20 tablet, 0 Refills, Acute 02/04/20 16:49:00 EDT, 01/25/20 16:49:00 EDT, Tablet, [facility] #[id number], 174.5, cm, 10/18/19 11:26:0... Start Date: 01/25/20 Stop Date: 02/04/20 Status: Ordered Flomax 0.4 mg oral capsule 0.4 mg, 1, capsule, By Mouth, Daily, # 30 capsule, Refills 11, Tot. Refills 11, Maintenance, 12/06/19 14:35:00 EDT, Route to Pharmacy Electronically, [facility] #[id number], 174.5, cm, 10/18/19 11:26:00 EST, Height Start Date: 12/06/19 Status: Ordered gabapentin 400 mg oral capsule 400 mg, 1, capsule, By Mouth, 3 times a day, discontinue gabapentin 800mg, # 90 capsule, Refills 11, Tot. Refills 11, Maintenance, 12/06/19 14:34:00 EDT, Route to Pharmacy Electronically, [facility] #[id number], 174.5, cm, 10/18/19 11:26:00 EST,... Start Date: 12/06/19 Status: Ordered nortriptyline 25 mg oral capsule 25 mg, 1, capsule, By Mouth, Daily at bedtime, # 30 capsule, Refills 11, Tot. Refills 11, Maintenance, 09/08/19 8:50:00 EST, Route to Pharmacy Electronically, [facility] #[id number], 174.5, cm, 08/31/19 11:34:00 EST, Height Start Date: 09/08/19 Status: Ordered oxybutynin 5 mg oral tablet 1-2 tablet, By Mouth, 2 times a day, # 90 tablet, 11 Refills, Maintenance, 09/16/19 9:09:00 EST, [facility] #[id number], 174.5, cm, 08/31/19 11:34:00 EST, Height Start Date: 09/16/19 Stop Date: 09/10/20 Status: Ordered oxyCODONE 10 mg oral tablet 1 tablet = 10 mg, By Mouth, Every 4 hours, for 28 days, to be dispensed not earlier than 01/10/20 Donot exceed 5 tablets in 24 hours PRN pain, # 140 tablet, 0 Refills, Acute 02/07/20 12:25:00 EDT, 01/10/20 12:25:00 EDT, [facility] #[id number]... Start Date: 01/10/20 Stop Date: 02/07/20 Status: Ordered Replacement prosthetic liner Replacement prosthetic [...] Gm, 1 Refills, Maintenance, 01/06/20 10:02:00 EDT, [facility] #[id number], 1 applicator Topically 2 times a day, [...]
--- OUTSIDE RECORDS SUMMARY | 2023-11-04 06:09 | XMS_ITS | Continuity of Care Document ---
Author Name Unknown Organization [facility] Address Unknown Care Team Providers Care Junior Loan Processor Name Role Phone Sarai MORGAN, Shane Primary Care Physician [facility] [facility] Date(s): 08/13/21 - 09/12/21 [facility] Allergies, Adverse Reactions, Alerts Substance Reaction Severity [...] Maintenance,10/12/20 10:52:00 EST, Route to Pharmacy Electronically, [facility]/pharmacy #[id number], 174.5, cm, 10/12/20 10:15:00 EST, Height [...] 5 Refills, Maintenance, 03/06/21 13:31:00 EDT, Aerosol, [id number], Partial fill upon patient request if the prescription is for a schedule II opioid drug., 1 puffs... Start Date: 03/06/21 Status: Ordered Flomax 0.4 mg oral capsule 0.4 mg, 1, capsule, By Mouth, Daily, # 30 capsule, Refills 5, Tot. Refills 5, Maintenance, 218:59:00 EDT, Route to Pharmacy Electronically, [facility] #[id number], 174.5, cm, 02/01/21 10:52:00 EDT, Height Start Date: 02/05/21 Status: Ordered gabapentin 600 mg oral tablet 1 tablet = 600 mg, By Mouth, 2 times a day, Dose change, # 60 tablet, 11 Refills, Maintenance, 08/09/21 12:40:00 EST, Tablet, [id number], Partial fill upon patient request if the prescriptionis for a schedule II opioid drug., 174.5, cm, 08/09... Start Date: 08/09/21 Status: Ordered nortriptyline 50 mg oral capsule 50 mg, 1, capsule, By Mouth, Daily at bedtime, Discontinue nortriptyline 25 mg, # 30 capsule, Refills 11, Tot. Refills 11, Maintenance, 08/09/21 12:41:00 EST, Route to Pharmacy Electronically, [id number], Partial fill upon patient request if t... Start Date: 08/09/21 Status: Ordered oxybutynin 10 mg/24 hr oral tablet, extended release 1 tablet = 10 mg, By Mouth, Daily, Discontinue oxybutynin 5 mg, # 30 tablet, 11 Refills, Maintenance, 10/12/20 10:53:00 EST, ER Tablet, [id number], 174.5, cm, 10/12/20 10:15:00 EST, Height Start Date: 10/12/20 Status: Ordered oxyCODONE 5 mg oral tablet 5 mg, 1, tablet, By Mouth, Every 8 hours, for 28 days, Chronic LBP M54.9 fill date 09/20/21 If oxycodone 5 mg is not available, can dispense oxycodone 10 mg 0.5 tablets every 8 hours 42 tablets, # 70tablet, Refills 0, Tot. Refills 0, Acute ... 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
--- OUTSIDE RECORDS SUMMARY | 2023-11-04 06:09 | XMS_ITS | Continuity of Care Document ---
Author Name Unknown Organization [facility] Address [address] [place] [address]- Care Team Providers Care Coil Cutter Name Role Phone Sarai MORGAN, Shane Primary Care Physician Encounter [facility] [place] Date(s): 02/28/22 - 05/22/22 [facility]/[place] [address]- Attending Physician: Shane Mono MD Admitting Physician: Shane Moon MD Allergies, [...] Maintenance,10/12/20 10:52:00 EST, Route to Pharmacy Electronically, [facility]/pharmacy #[id number], 174.5, cm, 10/12/20 10:15:00 EST, [...] 5 Refills, Maintenance, 03/06/21 13:31:00 EDT, Aerosol, [facility]/pharmacy #[id number], Partial fill upon patient request if the prescription is for a schedule II opioid drug., 1 puffs... Start Date: 03/06/21 Status: Ordered Flomax 0.4 mg oral capsule 0.4 mg, 1, capsule, By Mouth, Daily, # 30 capsule, Refills 5, Tot. Refills 5, Maintenance, 218:59:00 EDT, Route to Pharmacy Electronically, [facility] #[id number], 174.5, cm, 02/01/21 10:52:00 EDT, Height Start Date: 02/05/21 Status: Ordered gabapentin 300 mg oral capsule 300 mg, 1, capsule, By Mouth, Daily, Use at noon time Continue gabapentin 600 mg capsules twice daily, # 30 capsule, Refills 11, Tot. Refills 11, Maintenance, 11/16/21 13:54:00 EST, Route to PharmacyElectronically, [facility]/pharmacy #[id number], Partial fill... Start Date: 11/16/21 Status: Ordered gabapentin 600 mg oral tablet 1 tablet = 600 mg, By Mouth, 3 times a day, discontinue gabapentin 300mg, # 60 tablet, 11 Refills, Maintenance, 04/22/22 14:56:00 EDT, Tablet, [facility]/pharmacy #[id number], Partial fill upon patient request ifthe prescription is for a schedule II opioid drug.... Start Date: 04/22/22 Status: Ordered nortriptyline 50 mg oral capsule 50 mg, 1, capsule, By Mouth, Daily at bedtime, Discontinue nortriptyline 25 mg, # 30 capsule, Refills 11, Tot. Refills 11, Maintenance, 08/09/21 12:41:00 EST, Route to Pharmacy Electronically, [facility]/pharmacy #[id number], Partial fill upon patient request [...] 28 days, Chronic LBP M54.9 fill date 05/20/22 If oxycodone 5 mg is not available, can dispense oxycodone 10 mg 0.5 tablets every 4 hours 84 tablets, # 168tablet, Refills 0, Tot. Refills 0, Acute ... Start Date: 05/20/22 Stop Date: 06/17/22 Status: Ordered oxyCODONE 5 mg oral tablet 5 mg, 1, tablet, By Mouth, Every 4 hours, for 28 days, Chronic LBP M54.9 fill date 06/17/22 If oxycodone 5 mg is not available, can dispense oxycodone 10 mg 0.5 tablets every 4 hours 84 tablets, # 168tablet, Refills 0, Tot. Refills 0, Acute /... Start Date: 06/17/22 Stop Date: 07/15/22 Status: Ordered Replacement prosthetic liner Replacement prosthetic [...] Gm, 1 Refills, Maintenance, 10/12/20 10:52:00 EST, 20:20 [id number], 1 applicator Topically 2 times a day, 174.5, cm, 10/12/20 10:15:00 EST, Height Start Date: 10/12/20 Status: Ordered Vitamin D3 1000 intl units oral tablet 1 tablet = 1,000 International_Units, By Mouth, Daily, # 30 tablet, 11 Refills, Maintenance, 10/12/20 10:52:00 EST, 20:20 [id number], 174.5, cm, 10/12/20 10:15:00 EST, Height [...] knee(Confirmed) 1998 Active Glucose intolerance (pre-diabetes)(Confirmed) 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
--- OUTSIDE RECORDS SUMMARY | 2023-11-04 06:09 | XMS_ITS | Continuity of Care Document ---
Author Name Unknown Organization [facility] Address Unknown Care Team Providers Care Signs Cleaner Name Role Phone Sarai MORGAN, Shane Primary Care Physician Encounter [facility] [place] Date(s): 11/12/21 - 12/12/21 [facility] Allergies, Adverse Reactions, Alerts Substance Reaction Severity [...] Maintenance,10/12/20 10:52:00 EST, Route to Pharmacy Electronically, [facility]/pharmacy #[id number], 174.5, cm, 10/12/20 10:15:00 EST, Height [...] 5 Refills, Maintenance, 03/06/21 13:31:00 EDT, Aerosol, [facility]/pharmacy #[id number], Partial fill upon patient request if the prescription is for a schedule II opioid drug., 1 puffs... Start Date: 03/06/21 Status: Ordered Flomax 0.4 mg oral capsule 0.4 mg, 1, capsule, By Mouth, Daily, # 30 capsule, Refills 5, Tot. Refills 5, Maintenance, 218:59:00 EDT, Route to Pharmacy Electronically, [facility] #[id number], 174.5, cm, 02/01/21 10:52:00 EDT, Height Start Date: 02/05/21 Status: Ordered gabapentin 300 mg oral capsule 300 mg, 1, capsule, By Mouth, Daily, Use at noon time Continue gabapentin 600 mg capsules twice daily, # 30 capsule, Refills 11, Tot. Refills 11, Maintenance, 11/16/21 13:54:00 EST, Route to PharmacyElectronically, [facility]/pharmacy #[id number], Partial fill... Start Date: 11/16/21 Status: Ordered gabapentin 600 mg oral tablet 1 tablet = 600 mg, By Mouth, 2 times a day, Dose change, # 60 tablet, 11 Refills, Maintenance, 08/09/21 12:40:00 EST, Tablet, [facility]/pharmacy #[id number], Partial fill upon patient request if the prescriptionis for a schedule II opioid drug., 174.5, cm, 08/09... Start Date: 08/09/21 Status: Ordered nortriptyline 50 mg oral capsule 50 mg, 1, capsule, By Mouth, Daily at bedtime, Discontinue nortriptyline 25 mg, # 30 capsule, Refills 11, Tot. Refills 11, Maintenance, 08/09/21 12:41:00 EST, Route to Pharmacy Electronically, [facility]/pharmacy #[id number], Partial fill upon patient request if t... Start Date: 08/09/21 Status: Ordered oxybutynin 10 mg/24 hr oral tablet, extended release 1 tablet = 10 mg, By Mouth, Daily, Discontinue oxybutynin 5 mg, # 30 tablet, 11 Refills, Maintenance, 10/12/20 10:53:00 EST, ER Tablet, 

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
--- OUTSIDE RECORDS SUMMARY | 2023-11-04 06:09 | XMS_ITS | Continuity of Care Document ---
Author Name Unknown Organization [facility] Address [address] [place] [address]- Care Team Providers Care Body Man Name Role Phone Sarai MORGAN, Shane Primary Care Physician Encounter [facility] [place] Date(s): 10/28/22 - 11/27/22 [facility]/[place] [address]- Attending Physician: Jun Calhoun Admitting Physician: AdmtrJun Referring Physician: Admtr, ArAna Luisa Allergies, Adverse Reactions, Alerts Substance Reaction Severity [...] 50 tablet, 11 Refills, Maintenance, 10/28/22 11:21:00 [facility], [facility]/pharmacy #[id number], Partial fill upon patient request if the prescription is for a... Start Date: 10/28/22 Status: Ordered aspirin 81 mg oral delayed release tablet 81 mg, 1, tablet, By Mouth, Daily, with food, # 100 tablet, Refills 3, Tot. Refills 3, Maintenance,08/12/22 12:46:00 EST, Route to Pharmacy Electronically, [facility]/pharmacy #[id number], 174.5, cm, 08/12/22 11:28:00 EST, Height, [...] 60 tablet, 11 Refills, Maintenance, 10/28/2310:11:00 EST, [facility]/pharmacy #[id number], Partial fill upon patient request if the prescription is for a schedule II opioid drug., 174.5, cm, 10/28/22 10:21:00... Start Date: 10/28/22 Status: Ordered Flomax 0.4 mg oral capsule 0.4 mg, 1, capsule, By Mouth, Daily, # 30 capsule, Refills 11, Tot. Refills 11, Maintenance, 08/12/22 12:46:00 EST, Route to Pharmacy Electronically, [facility]/pharmacy #[id number], 174.5, cm, 08/12/22 11:28:00 EST, Height, 142.63, kg, 05/11/21 15:13:00 EDT, Dry... Start Date: 08/12/22 Status: Ordered gabapentin 800 mg oral tablet 1 tablet = 800 mg, By Mouth, 3 times a day, discontinue gabapentin 600mg, # 90 tablet, 11 Refills, Maintenance, 06/26/22 13:53:00 EDT, Tablet, [facility]/pharmacy #[id number], Partial fill upon patient request ifthe prescription is for a schedule II opioid drug.... Start Date: 06/26/22 Status: Ordered methocarbamol 500 mg oral tablet 1 tablet = 500 mg, By Mouth, 3 times a day, for 14 days, # 42 tablet, 2 Refills, Acute 12/09/22 11:19:00 EDT, 10/28/22 11:19:00 EST, [facility]/pharmacy #[id number], Partial fill upon patient request if the prescription is for a schedule II opioid drug., 174.5, cm... Start Date: 10/28/22 Stop Date: 12/09/22 Status: Ordered metoprolol 25 mg oral tablet, extended release 12.5 mg, 0.5, tablet, By Mouth, Daily, # 15 tablet, Refills 11, Tot. Refills 11, Maintenance, 10/28/22 11:22:00 EST, Route to Pharmacy Electronically, [facility]/pharmacy #[id number], 174.5, cm, 10/28/22 10:21:00EST, Height, 142.63, kg, 05/11/21 15:13:00 EDT, Dry... Start Date: 10/28/22 Stop Date: 10/23/23 Status: Ordered nortriptyline 50 mg oral capsule 50 mg, 1, capsule, By Mouth, Daily at bedtime, # 30 capsule, Refills 11, Tot. Refills 11, Maintenance, 08/12/22 12:46:00 EST, Route to Pharmacy Electronically, [facility]/pharmacy #[id number], 174.5, cm, 08/12/2211:28:00 EST, Height, 142.63, kg, 05/11/21 15:13:00... Start Date: 08/12/22 Status: Ordered oxybutynin 10 mg/24 hr oral tablet, extended release 1 tablet = 10 mg, By Mouth, Daily, Discontinue oxybutynin 5 mg, # 30 tablet, 11 Refills, Maintenance, 10/12/20 10:53:00 EST, ER Tablet, [facility]/pharmacy #[id number], 174.5, cm, 10/12/20 10:15:00 EST, Height Start Date: 10/12/20 Status: Ordered oxyCODONE 5 mg oral tablet 5 mg, 1, tablet, By Mouth, Every 4 hours, for 28 days, Chronic LBP M54.9 fill date 11/04/22, # 168 tablet, Refills 0, Tot. Refills 0, Acute 12/02/22 14:57:00 EDT, 11/04/22 14:57:00 EST, Route to Pharmacy Electronically, [id number], Partial... Start Date: 11/04/22 Stop Date: 12/02/22 Status: Ordered oxyCODONE 5 mg oral tablet 5 mg, 1, tablet, By Mouth, Every 4 hours, for 28 days, Chronic LBP M54.9 fill date 12/02/22, # 168 tablet, Refills 0, Tot. Refills 0, Acute 12/30/22 14:57:00 EDT, 12/02/22 14:57:00 EDT, Route to Pharmacy Electronically, [id number], [place]... Start Date: 12/02/22 Stop Date: 12/30/22 Status: Ordered oxyCODONE 5 mg oral tablet 5 mg, 1, tablet, By Mouth, Every 4 hours, for 28 days, Chronic LBP M54.9 fill date 12/30/22, # 168 tablet, Refills 0, Tot. Refills 0, Acute 01/27/23 14:57:00 EDT, 12/30/22 14:57:00 EDT, Route to Pharmacy Electronically, [id number], Partia... Start Date: 12/30/22 Stop Date: 01/27/23 Status: Ordered Right leg prothesis with liner Right leg prothesis with liner, See Instructions, # 1 each, Refills 0, Tot. Refills 0, Maintenance,Dx right below knee amputation Z89.511 [id number] Kg ybzjoy857.5cm, 06/26/22 14:02:00 EDT, Compound Start Date: 06/26/22 Status: Ordered Topamax 100 mg oral tablet 1 tablet = 100 mg, By Mouth, 2 times a day, Discontinue topiramate to 50 mg, # 60 tablet, 11 Refills, Maintenance, 10/28/22 11:07:00 EST, Tablet, [id number], Partial fill upon patient requestif the prescription is for a schedule II opioid soledad. 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
--- OUTSIDE RECORDS SUMMARY | 2023-11-04 06:09 | XMS_ITS | Continuity of Care Document ---
Author Name Unknown Organization [facility] Address Unknown Care Team Providers Care Production Metal Sprayer Name Role Phone Sarai MORGAN, Shane Primary Care Physician [place] [facility] [place]29[place]22 - 03/13/22 [facility] Attending Physician: Shane Moon MD Admitting [...] 10:52:00 EST, Route to Pharmacy Electronically, [facility]/pharmacy #[id number], 174.5, cm, 10/12/20 10:15:00 EST, Height [...] Refills, Maintenance, 03/06/21 13:31:00 EDT, Aerosol, [facility]/pharmacy #[id number], Partial fill upon patient request if the prescription is for a schedule II opioid drug., 1 puffs... Start Date: 03/06/21 Status: Ordered Flomax 0.4 mg oral capsule 0.4 mg, 1, capsule, By Mouth, Daily, # 30 capsule, Refills 5, Tot. Refills 5, Maintenance, 218:59:00 EDT, Route to Pharmacy Electronically, [facility] #[id number], 174.5, cm, 02/01/21 10:52:00 EDT, Height Start Date: 02/05/21 Status: Ordered gabapentin 300 mg oral capsule 300 mg, 1, capsule, By Mouth, Daily, Use at noon time Continue gabapentin 600 mg capsules twice daily, # 30 capsule, Refills 11, Tot. Refills 11, Maintenance, 11/16/21 13:54:00 EST, Route to PharmacyElectronically, [facility]/pharmacy #[id number], Partial fill... Start Date: 11/16/21 Status: Ordered gabapentin 600 mg oral tablet 1 tablet = 600 mg, By Mouth, 2 times a day, Dose change, # 60 tablet, 11 Refills, Maintenance, 08/09/21 12:40:00 EST, Tablet, [facility]/pharmacy #[id number], Partial fill upon patient request if the prescriptionis for a schedule II opioid drug., 174.5, cm, 08/09... Start Date: 08/09/21 Status: Ordered nortriptyline 50 mg oral capsule 50 mg, 1, capsule, By Mouth, Daily at bedtime, Discontinue nortriptyline 25 mg, # 30 capsule, Refills 11, Tot. Refills 11, Maintenance, 08/09/21 12:41:00 EST, Route to Pharmacy Electronically, [facility]/pharmacy #[id number], Partial fill upon patient request if [...] 28 days, Chronic LBP M54.9 fill date 03/05/22 If oxycodone 5 mg is not available, can dispense oxycodone 10 mg 0.5 tablets every 4 hours 84 tablets, # 168tablet, Refills 0, Tot. Refills 0, Acute 07/... Start Date: 03/05/22 Stop Date: 04/02/22 Status: Ordered Replacement prosthetic liner Replacement prosthetic [...]
--- OUTSIDE RECORDS SUMMARY | 2023-11-04 06:09 | XMS_ITS | Continuity of Care Document ---
Author Name Unknown Organization [facility] Address [address] [place] [address]- Care Team Providers Care Signal Processing Engineer Name Role Phone Sarai MORGAN, Shane Primary Care Physician En[place] [facility] [place] [id number] Date(s): 04/18/23 - 05/18/23 [facility]/[place] [address]- Attending Physician: Jun Calhoun Admitting Physician: Jun Calhoun Referring Physician: AdmtrJun Allergies, Adverse Reactions, Alerts Substance Reaction Severity Status morphine swelling Active predniSONE Chill Agitation Diaphoresis Persistent Severe Active Immunizations Given and Recorded Vaccine Date Status Refusal Reason influenza virus vaccine, inactivated 06/26/22 Give n influenza virus vaccine, inactivated 08/09/21 Give n influenza virus vaccine, inactivated 10/12/20 Ulisses rded influenza virus vaccine, inactivated 10/18/19 Give n influenza virus vaccine, inactivated 07/09/18 Give n influenza virus vaccine, inactivated 09/10/17 Give n pneumococcal 13-valent vaccine 10/18/19 Given pneumococcal 23-valent vaccine 07/09/18 Given tetanus/diphtheria/pertussis, acel(Tdap) 07/09/18 Given Medications acetaminophen 500 mg oral tablet 2 tablet = 1,000 mg, By Mouth, Every 6 hours, PRN as needed for pain or fever, (not to exceed 3000 mg/day), # 50 tablet, 11 Refills, Maintenance, 10/28/22 11:21:00 EST, [facility]/pharmacy #[id number], Partial fill upon patient request if the prescription is for a... Start Date: 10/28/22 Status: Ordered aspirin 81 mg oral delayed release tablet 81 mg, 1, tablet, By Mouth, Daily, with food, # 100 tablet, Refills 3, Tot. Refills 3, Maintenance,08/12/22 12:46:00 EST, Route to Pharmacy Electronically, [facility]/pharmacy #[id number], 174.5, cm, 08/12/22 11:28:00 EST, Height, [...] 60 tablet, 11 Refills, Maintenance, 10/28/2310:11:00 EST, [facility]/pharmacy #[id number], Partial fill upon patient request if the prescription is for a schedule II opioid drug., 174.5, cm, 10/28/22 10:21:00... Start Date: 10/28/22 Status: Ordered Flomax 0.4 mg oral capsule 0.4 mg, 1, capsule, By Mouth, Daily, # 30 capsule, Refills 11, Tot. Refills 11, Maintenance, 08/12/22 12:46:00 EST, Route to Pharmacy Electronically, [facility]/pharmacy #[id number], 174.5, cm, 08/12/22 11:28:00 EST, Height, 142.63, kg, 05/11/21 15:13:00 EDT, Dry... Start Date: 08/12/22 Status: Ordered gabapentin 800 mg oral tablet 1 tablet = 800 mg, By Mouth, 3 times a day, discontinue gabapentin 600mg, # 90 tablet, 11 Refills, Maintenance, 06/26/22 13:53:00 EDT, Tablet, [facility]/pharmacy #[id number], Partial fill upon patient request ifthe prescription is for a schedule II opioid drug.... Start Date: 06/26/22 Status: Ordered Metoprolol Succinate ER 25 mg oral tablet, extended release 0.5 tablet, By Mouth, 2 times a day, # 90 tablet, 3 Refills, Maintenance, 03/13/23 11:51:00 EDT, [facility]/pharmacy #[id number], 174.5, cm, 02/20/23 15:42:00 EDT, Height, 142.63, kg, 05/11/21 15:13:00 EDT, Dry Weight Start Date: 03/13/23 Status: Ordered Narcan 4 mg/0.1 mL nasal spray 1 spray, Naris, Left, Once, may repeat every 2 to 3 minutes until patient responds alternating nostril, # 2 each, 0 Refills, Soft Stop, 03/31/23 14:34:00 EDT, [facility]/pharmacy #[id number], Partial fill upon patient request if the prescription is for a schedule... Start Date: 03/31/23 Status: Ordered nortriptyline 50 mg oral capsule 50 mg, 1, capsule, By Mouth, Daily at bedtime, # 30 capsule, Refills 11, Tot. Refills 11, Maintenance, 08/12/22 12:46:00 EST, Route to Pharmacy Electronically, [facility]/pharmacy #[id number], 174.5, cm, 08/12/2211:28:00 EST, Height, 142.63, [...] 28 days, Chronic LBP M54.9 fill date 04/30/23, # 168 tablet, Refills 0, Tot. 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
--- OUTSIDE RECORDS SUMMARY | 2023-11-04 06:09 | XMS_ITS | Continuity of Care Document ---
Author Name Unknown Organization [facility] Address [address] [place] [address]- Care Team Providers Care Eeo Officer Name Role Phone Sarai MORGAN, Shane Primary Care Physician [place] [facility] [place]23 - 04/30/23 [facility]/[address] [address]- [place] Allergies, Adverse Reactions, Alerts Substance Reaction Severity [...] tablet, 11 Refills, Maintenance, 10/28/22 11:21:00 EST, [facility]/pharmacy #[id number], Partial fill upon patient request if the prescription is for a... Start Date: 10/28/22 Status: Ordered aspirin 81 mg oral delayed release tablet 81 mg, 1, tablet, By Mouth, Daily, with food, # 100 tablet, Refills 3, Tot. Refills 3, Maintenance,08/12/22 12:46:00 EST, Route to Pharmacy Electronically, [facility]/pharmacy #[id number], 174.5, cm, 08/12/22 11:28:00 EST, [...] 60 tablet, 11 Refills, Maintenance, 10/28/2310:11:00 EST, [facility]/pharmacy #[id number], Partial fill upon patient request if the prescription is for a schedule II opioid drug., 174.5, cm, 10/28/22 10:21:00... Start Date: 10/28/22 Status: Ordered Flomax 0.4 mg oral capsule 0.4 mg, 1, capsule, By Mouth, Daily, # 30 capsule, Refills 11, Tot. Refills 11, Maintenance, 08/12/22 12:46:00 EST, Route to Pharmacy Electronically, [facility]/pharmacy #[id number], 174.5, cm, 08/12/22 11:28:00 EST, Height, 142.63, kg, 05/11/21 15:13:00 EDT, Dry... Start Date: 08/12/22 Status: Ordered gabapentin 800 mg oral tablet 1 tablet = 800 mg, By Mouth, 3 times a day, discontinue gabapentin 600mg, # 90 tablet, 11 Refills, Maintenance, 06/26/22 13:53:00 EDT, Tablet, [facility]/pharmacy #[id number], Partial fill upon patient request ifthe prescription is for a schedule II opioid drug.... Start Date: 06/26/22 Status: Ordered Metoprolol Succinate ER 25 mg oral tablet, extended release 0.5 tablet, By Mouth, 2 times a day, # 90 tablet, 3 Refills, Maintenance, 03/13/23 11:51:00 EDT, [facility]/pharmacy #[id number], 174.5, cm, 02/20/23 15:42:00 EDT, Height, 142.63, kg, 05/11/21 15:13:00 EDT, Dry Weight Start Date: 03/13/23 Status: Ordered Narcan 4 mg/0.1 mL nasal spray 1 spray, Naris, Left, Once, may repeat every 2 to 3 minutes until patient responds alternating nostril, # 2 each, 0 Refills, Soft Stop, 03/31/23 14:34:00 EDT, [facility]/pharmacy #[id number], Partial fill upon patient request if the prescription is for a schedule... Start Date: 03/31/23 Status: Ordered nortriptyline 50 mg oral capsule 50 mg, 1, capsule, By Mouth, Daily at bedtime, # 30 capsule, Refills 11, Tot. Refills 11, Maintenance, 08/12/22 12:46:00 EST, Route to Pharmacy Electronically, [facility]/pharmacy #[id number], 174.5, cm, 08/12/2211:28:00 EST, Height, 142.63, kg, 05/11/21 15:13:00... Start Date: 08/12/22 Status: Ordered oxybutynin 10 mg/24 hr oral tablet, extended release 1 tablet = 10 mg, By Mouth, Daily, Discontinue oxybutynin 5 mg, # 30 tablet, 11 Refills, Maintenance, 10/12/20 10:53:00 EST, ER Tablet, [facility]/pharmacy #[id number], 174.5, cm, 10/12/20 10:15:00 EST, [...] 0, Maintenance,Dx right below knee amputation Z89.511 [id number] Kg orgxfg414.5cm, 06/26/22 14:02:00 EDT, Compound Start Date: 06/26/22 Status: Ordered Topamax 100 mg oral tablet 1 tablet = 100 mg, By Mouth, 2 times a day, Discontinue topiramate to 50 mg, # 60 tablet, 11 Refills, Maintenance, 10/28/22 11:07:00 EST, Tablet, [facility]/pharmacy #[id number], Partial fill upon patient requestif the prescription [...] extremity below knee 4 Confirmed 1998 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
--- OUTSIDE RECORDS SUMMARY | 2023-11-04 06:09 | XMS_ITS | Continuity of Care Document ---
Author Name Unknown Organization [facility] Address Unknown Care Team Providers Care Tool Room Attendant Name Role Phone Sarai MORGAN, Shane Primary Care Physician Encounter [facility] [place] Date(s): 09/03/21 - 10/03/21 [facility] Attending Physician: Jun Calhoun Admitting Physician: Jun Calhoun Referring Physician: Jun Calhoun Allergies, Adverse Reactions, Alerts Substance Reaction Severity [...] Maintenance,10/12/20 10:52:00 EST, Route to Pharmacy Electronically, [facility]/pharmacy #[id number], 174.5, cm, 10/12/20 10:15:00 [...] 5 Refills, Maintenance, 03/06/21 13:31:00 EDT, Aerosol, [facility]/pharmacy #[id number], Partial fill upon patient request if the prescription is for a schedule II opioid drug., 1 puffs... Start Date: 03/06/21 Status: Ordered Flomax 0.4 mg oral capsule 0.4 mg, 1, capsule, By Mouth, Daily, # 30 capsule, Refills 5, Tot. Refills 5, Maintenance, 218:59:00 EDT, Route to Pharmacy Electronically, [facility] #[id number], 174.5, cm, 02/01/21 10:52:00 EDT, Height Start [...] 70tablet, Refills 0, Tot. Refills 0, Acute .. 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
--- OUTSIDE RECORDS SUMMARY | 2023-11-04 06:09 | XMS_ITS | Continuity of Care Document ---
Author Name Unknown Organization [facility] Address [address] [place] [address]- Care Team Providers Care Religious Education Teacher Name Role Phone Sarai MORGAN, Shane Primary Care Physician Encounter [facility] [place] Date(s): 03/30/21 - 04/29/21 [facility] [address] [place] [address]- Attending Physician: Jun Calhoun Admitting Physician: AdmJnu rfanks Referring Physician: AdmtrJun Allergies, Adverse Reactions, Alerts Substance Reaction Severity Status morphine swelling Active predniSONE Chill Agitation Diaphoresis Persistent Severe Active Immunizations Given and Recorded Vaccine Date Status Refusal Reason influenza virus vaccine, inactivated 10/12/20 Ulisses rded [...] Maintenance,10/12/20 10:52:00 EST, Route to Pharmacy Electronically, [facility]/pharmacy #[id number], 174.5, cm, 10/12/20 [...] 5 Refills, Maintenance, 03/06/21 13:31:00 EDT, Aerosol, [facility]/pharmacy #[id number], Partial fill upon patient request if the prescription is for a schedule II opioid drug., 1 puffs... Start Date: 03/06/21 Status: Ordered Flomax 0.4 mg oral capsule 0.4 mg, 1, capsule, By Mouth, Daily, # 30 capsule, Refills 5, Tot. Refills 5, Maintenance, :59:00 EDT, Route to Pharmacy Electronically, [email or web address] #[id number], 174.5, cm, 02/01/21 10:52:00 EDT, Height Start Date: 02/05/21 Status: Ordered gabapentin 600 mg oral tablet 1 tablet = 600 mg, By Mouth, 3 times a day, Discontinue gabapentin 400 mg, # 90 tablet, 11 Refills,Maintenance, 10/12/20 10:50:00 EST, Tablet, [facility]/pharmacy #[id number], Partial fill upon patient request if the prescription is for a schedule II opioid drug.... Start Date: 10/12/20 Status: Ordered nortriptyline 25 mg oral capsule 25 mg, 1, capsule, By Mouth, Daily at bedtime, # 30 capsule, Refills 11, Tot. Refills 11, Maintenance, 10/12/20 10:52:00 EST, Route to Pharmacy Electronically, [facility]/pharmacy #[id number], 174.5, cm, 10/12/2109:15:00 EST, Height Start Date: 10/12/20 Status: Ordered oxybutynin 10 mg/24 hr oral tablet, extended release 1 tablet = 10 mg, By Mouth, Daily, Discontinue oxybutynin 5 mg, # 30 tablet, 11 Refills, Maintenance, 10/12/20 10:53:00 EST, ER Tablet, [id number], 174.5, cm, 10/12/20 10:15:00 EST, Height Start Date: 10/12/20 Status: Ordered oxyCODONE 10 mg oral tablet 1 tablet = 10 mg, By Mouth, Every 4 hours, for 28 days, Do not exceed 5 tablets in 24 hours PRN pain Fill not earlier than 04/09/21, # 140 tablet, 0 Refills, Acute 06/04/21 14:10:00 EDT, 05/07/21 14:10:00 EDT, [facility], partial... Start Date: 05/07/21 Stop Date: 06/04/21 Status: Ordered oxyCODONE 10 mg oral tablet 1 tablet = 10 mg, By Mouth, Every 4 hours, for 28 days, Do not exceed 5 tablets in 24 hours PRN pain Fill not earlier than 04/09/21, # 140 tablet, 0 Refills, Acute 05/07/21 14:10:00 EDT, 04/09/21 14:10:00 EDT, [facility]/pharmacy #[id number], partial fill upon r... Start Date: 04/09/21 Stop Date: 05/07/21 Status: Ordered Replacement prosthetic liner Replacement prosthetic liner, See Instructions, # 2 each, Refills 0, Tot. Refills 0, Maintenance, Dx right below knee amputation Z89.511 wt 297 pounds, 10/18/19 11:59:00 EST, Compound Start Date: 10/18/19 Status: Ordered Topamax 25 mg oral tablet 1 tablet = 25 mg, By Mouth, 2 times a day, for the first week use only at bedtime To be use with 50mg tablet, # 60 tablet, 5 Refills, Maintenance, Headaches, 03/05/21 15:49:00 EDT, [facility] #[id number], Partial fill upon patient reques... Start Date: 03/05/21 Status: Ordered Topamax 50 mg oral tablet 1 tablet = 50 mg, By Mouth, 2 times a day, # 60 tablet, 11 Refills, Maintenance, 10/12/20 10:52:00 EST, [facility]/pharmacy #[id number], 174.5, cm, 10/12/20 10:15:00 EST, Height Start Date: 10/12/20 Status: Ordered triamcinolone 0.1% topical cream 1 applicator, Topically, 2 times a day, # 15 Gm, 1 Refills, Maintenance, 10/12/20 10:52:00 EST, [facility]/pharmacy #[id number], 1 applicator Topically 2 times a day, 174.5, cm, 10/12/20 10:15:00 EST, Height Start Date: 10/12/20 Status: Ordered Vitamin D3 1000 intl units oral tablet 1 tablet = 1,000 International_Units, By Mouth, Daily, # 30 tablet, 11 Refills, Maintenance, 10/12/20 10:52:00 EST, [facility]/pharmacy #[id number], 174.5, cm, 10/12/20 10:15:00 EST, Height [...] 4 1998 Active Glucose intolerance (pre-diabetes)(Confirmed) Active residential current use of opi ate analgesic- chronic [...] (less than 100 in lifetime) entered on: 02/01/21 Sex
--- OUTSIDE RECORDS SUMMARY | 2023-11-04 06:09 | XMS_ITS | Continuity of Care Document ---
Author Name Unknown Organization [facility] Address Unknown Care Team Providers Care Rental Salesperson Name Role Phone Sarai MORGAN, Shane Primary Care Physician [place] [facility] [place] [id number] Date(s): 10/24/21 - 11/23/21 [facility] Allergies, Adverse Reactions, Alerts Substance Reaction Severity [...] Maintenance,10/12/20 10:52:00 EST, Route to Pharmacy Electronically, [facility]/pharmacy #[id number], 174.5, cm, 10/12/20 10:15:00 EST, [...] 5 Refills, Maintenance, 03/06/21 13:31:00 EDT, Aerosol, [facility]/pharmacy #[id number], Partial fill upon patient request if the prescription is for a schedule II opioid drug., 1 puffs... Start Date: 03/06/21 Status: Ordered Flomax 0.4 mg oral capsule 0.4 mg, 1, capsule, By Mouth, Daily, # 30 capsule, Refills 5, Tot. Refills 5, Maintenance, 218:59:00 EDT, Route to Pharmacy Electronically, [facility] #[id number], 174.5, cm, 02/01/21 10:52:00 EDT, Height Start Date: 02/05/21 Status: Ordered gabapentin 300 mg oral capsule 300 mg, 1, capsule, By Mouth, Daily, Use at noon time Continue gabapentin 600 mg capsules twice daily, # 30 capsule, Refills 11, Tot. Refills 11, Maintenance, 11/16/21 13:54:00 EST, Route to PharmacyElectronically, [facility]/pharmacy #[id number], Partial fill... Start Date: 11/16/21 Status: Ordered gabapentin 600 mg oral tablet 1 tablet = 600 mg, By Mouth, 2 times a day, Dose change, # 60 tablet, 11 Refills, Maintenance, 08/09/21 12:40:00 EST, Tablet, [facility]/pharmacy #[id number], Partial fill upon patient request if the prescriptionis for a schedule II opioid drug., 174.5, cm, 08/09... Start Date: 08/09/21 Status: Ordered nortriptyline 50 mg oral capsule 50 mg, 1, capsule, By Mouth, Daily at bedtime, Discontinue nortriptyline 25 mg, # 30 capsule, Refills 11, Tot. Refills 11, Maintenance, 08/09/21 12:41:00 EST, Route to Pharmacy Electronically, [facility]/pharmacy #[id number], Partial fill upon patient request if t... Start Date: 08/09/21 Status: Ordered oxybutynin 10 mg/24 hr oral tablet, extended release 1 tablet = 10 mg, By Mouth, Daily, Discontinue oxybutynin 5 mg, # 30 tablet, 11 Refills, Maintenance, 10/12/20 10:53:00 EST, ER Tablet, [facility]/pharmacy #[id number], 174.5, cm, 10/12/20 10:15:00 EST, [...] Date: 01/21/22 Stop Date: 02/18/22 Status: Ordered oxyCODONE 5 mg oral tablet 5 mg, 1, tablet, By Mouth, Every 4 hours, for 28 days, Chronic LBP M54.9 fill date 10/29/21 If oxycodone 5 mg is not available, can dispense oxycodone 10 mg 0.5 tablets every 4 hours 84 tablets, # 168 tablet, Refills 0, Tot. Refills 0, Acute 03/0... 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
--- OUTSIDE RECORDS SUMMARY | 2023-11-04 06:09 | XMS_ITS | Continuity of Care Document ---
Author Name Unknown Organization [facility] Address Unknown Care Team Providers Care Ophthalmic Asst Name Role Phone Sarai MORGAN, Shane Primary Care Physician [place] [facility] [place](s): 04/09/21 - 05/09/21 [facility] Allergies, Adverse Reactions, Alerts Substance Reaction Severity [...] Maintenance,10/12/20 10:52:00 EST, Route to Pharmacy Electronically, [facility]/pharmacy #[id number], 174.5, cm, 10/12/20 [...] Maintenance, :59:00 EDT, Route to Pharmacy Electronically, [facility] #[id number], 174.5, cm, 02/01/21 10:52:00 EDT, Height Start Date: 02/05/21 Status: Ordered gabapentin 600 mg oral tablet 1 tablet = 600 mg, By Mouth, 3 times a day, Discontinue gabapentin 400 mg, # 90 tablet, 11 Refills,Maintenance, 10/12/20 10:50:00 EST, Tablet, [facility]/pharmacy #[id number], Partial fill upon patient request if the prescription is for a schedule II opioid drug.... Start Date: 10/12/20 Status: Ordered nortriptyline 25 mg oral capsule 25 mg, 1, capsule, By Mouth, Daily at bedtime, # 30 capsule, Refills 11, Tot. Refills 11, Maintenance, 10/12/20 10:52:00 EST, Route to Pharmacy Electronically, [facility]/pharmacy #[id number], 174.5, cm, 10/12/2109:15:00 EST, Height Start [...] Acute 06/04/21 14:10:00 EDT, 05/07/21 14:10:00 EDT, [facility], partial... Start Date: 05/07/21 Stop Date: 06/04/21 Status: Ordered Replacement prosthetic liner Replacement prosthetic [...] 5 Refills, Maintenance, Headaches, 03/05/21 15:49:00 EDT, [id number], Partial fill upon patient reques... Start Date: [...] knee(Confirmed) 1998 Active Glucose intolerance (pre-diabetes)(Confirmed) Active correction current use of opi ate analgesic- chronic [...]
--- OUTSIDE RECORDS SUMMARY | 2023-11-04 06:09 | XMS_ITS | Continuity of Care Document ---
Author Name Unknown Organization [facility] Address [address] [place] [address]- Care Team Providers Care Systems Management Consultant Name Role Phone Shane Moon MD Primary Care Physician Encounter [facility] [place] Date(s): 06/23/23 - 09/17/23 [facility] [address]- Attending Physician: Shane Moon MD Admitting Physician: [...] tablet, 11 Refills, Maintenance, 10/28/22 11:21:00 EST, [facility]/pharmacy #[id number], Partial fill upon patient request if the prescription is for a... Start Date: 10/28/22 Status: Ordered BiPAP Machine See Instructions, # 1 each, Maintenance, AutoBiPAP with EPAP min of 10 and IPAP max of 18 with PS of 6, 01/27/20 9:49:00 EDT, Compound Start Date: 01/27/20 Status: Ordered busPIRone 15 mg oral tablet 1/2- 1 tablet, By Mouth, 2 times a day, PRN Anxiety, # 60 tablet, 11 Refills, Maintenance, 10/28/2310:11:00 EST, [id number], Partial fill upon patient request if the prescription is for a schedule II opioid drug., 174.5, cm, 10/28/22 10:21:00... Start Date: 10/28/22 Status: Ordered duloxetine 20 mg oral enteric coated capsule 1 capsule = 20 mg, By Mouth, Daily, # 30 capsule, 5 Refills, Maintenance, 07/17/23 12:45:00 EDT, [id number], 174.5, cm, 07/17/23 11:47:00 EDT, Height, 141.54, kg, 07/17/23 11:47:00 EDT, Dry Weight Start Date: 07/17/23 Status: Ordered gabapentin 800 mg oral tablet 1 tablet = 800 mg, By Mouth, 3 times a day, discontinue gabapentin 600mg, # 90 tablet, 11 Refills, Maintenance, 06/26/22 13:53:00 EDT, Tablet, [id number], Partial fill upon patient request ifthe prescription is for a schedule II opioid drug.... Start Date: 06/26/22 Status: Ordered Metoprolol Succinate ER 25 mg oral tablet, extended release 0.5 tablet, By Mouth, 2 times a day, # 90 tablet, 3 Refills, Maintenance, 03/13/23 11:51:00 EDT, [id number], 174.5, cm, 02/20/23 15:42:00 EDT, Height, 142.63, kg, 05/11/21 15:13:00 EDT, Dry Weight Start Date: 03/13/23 Status: Ordered Narcan 4 mg/0.1 mL nasal spray 1 spray, Naris, Left, Once, may repeat every 2 to 3 minutes until patient responds alternating nostril, # 2 each, 0 Refills, Soft Stop, 03/31/23 14:34:00 EDT, [id number], Partial fill upon patient request if the prescription is for a schedule... Start Date: 03/31/23 Status: Ordered nortriptyline 50 mg oral capsule 50 mg, 1, capsule, By Mouth, Daily at bedtime, # 30 capsule, Refills 11, Tot. Refills 11, Maintenance, 08/12/22 12:46:00 EST, Route to Pharmacy Electronically, [facility]/pharmacy #[id number], 174.5, cm, 08/12/2211:28:00 EST, Height, 142.63, kg, 05/11/21 15:13:00... Start Date: 08/12/22 Status: Ordered oxybutynin 10 mg/24 hr oral tablet, extended release 1 tablet = 10 mg, By Mouth, Daily, Discontinue oxybutynin 5 mg, # 30 tablet, 11 Refills, Maintenance, 10/12/20 10:53:00 EST, ER Tablet, [facility]/pharmacy #[id number], 174.5, cm, 10/12/20 10:15:00 EST, Height Start Date: 10/12/20 Status: Ordered oxyCODONE 5 mg oral tablet 5 mg, 1, tablet, By Mouth, Every 4 hours, for 28 days, chronic LBP M54.9 fill date 09/17/2023, # 168 tablet, Refills 0, Tot. Refills 0, Acute 10/15/23 15:51:00 EST, 09/17/23 15:51:00 EST, [facility], Partial fill upon patient request if t... Start Date: 09/17/23 Stop Date: 10/15/23 Status: Ordered Right leg prothesis with liner Right leg prothesis with liner, See Instructions, # 1 each, Refills 0, Tot. Refills 0, Maintenance,Dx right below knee amputation Z89.511 [id number] Kg ncajgg051.5cm, 06/26/22 14:02:00 EDT, Compound Start Date: 06/26/22 Status: Ordered tamsulosin 0.4 mg oral capsule See Instructions, [facility] , # 90 capsule, Refills 1, Maintenance, 07/28/23 14:56:00 EST, Instructions Replace Required Details, Route to Pharmacy Electronically, [facility] [id number], 174.5, cm, 07/17/23 11:47:00 EDT, Height, 141.54,... Start Date: 07/28/23 Status: Ordered Topamax 100 mg oral tablet [...] extremity below knee 4 Confirmed 1998 Active Hypertension associated with diabetes Confirmed Active longterm current use of opiate analgesic- chronic LBP, [...] Care Team Personnel Name: Shannon Noonan Position: [facility] Outreach Member Role: Lifetime Consulting Physician Name: Sarai MORGAN, Shane Position: [facility] Physician - Primary Care Member Role: PCP Address: Address: [address] [place] [address]- Care Team Related Persons Name: CLAUDIA FLEMING Address: home [address] [place] [address] Name: KAY GUIDO Address: home [address] [place] [address]
--- OUTSIDE RECORDS SUMMARY | 2023-11-04 06:09 | XMS_ITS | Continuity of Care Document ---
Author Name Unknown Organization [facility] Address [address] [place] [address]- Care Team Providers Care Oil Field Equipment Mechanic Name Role Phone Shane Moon MD Primary Care Physician Encounter [facility] [place] Date(s): 06/29/19 - 09/05/[address] [address]- [facility] Discharge Disposition: A-D/C Home Attending Physician: Shane Moon MD Admitting Physician: Shane Moon MD Referring Physician: Shane Moon MD Allergies, Adverse Reactions, [...] Maintenance,03/09/18 10:23:07 EDT, Route to Pharmacy Electronically, [id number], [id number] Start Date: 03/09/18 Status: Ordered BiPAP Machine [...] 10/19/18 11:19:38 EST, Route to Pharmacy Electronically, [id number], [facility] [id number] Start Date: 10/19/18 Status: Ordered gabapentin 400 mg oral capsule 400 mg, 1, capsule, By Mouth, 3 times a day, discontinue gabapentin 800mg, # 90 capsule, Refills 11, Tot. Refills 11, Maintenance, 12/21/18 9:06:29 EDT, Route to Pharmacy Electronically, [id number], [facility] [id number] Start Date: 12/21/18 Status: Ordered Medrol 4 mg oral tablet 1 tablet = 4 mg, By Mouth, Daily, with food discontinue prednisone because has adverse reaction of agitation, diaphoresis, chills, # 7 tablet, 0 Refills, Maintenance, 04/22/19 13:07:49 EDT Start Date: 04/22/19 Status: Ordered nortriptyline 25 mg oral capsule 25 mg, 1, capsule, By Mouth, Daily at bedtime, discontinue nortriptyline 10mg, # 30 capsule, Refills 11, Tot. Refills 11, Maintenance, 07/09/18 9:44:10 EDT, Route to Pharmacy Electronically, [id number], [facility] Start Date: 07/09/18 Status: Ordered oxybutynin 5 mg oral tablet 1-2 tablet, By Mouth, 2 times a day, # 90 tablet, 11 Refills, Maintenance, 12/21/18 9:01:57 EDT Start Date: 12/21/18 Stop Date: 12/16/19 Status: Ordered oxyCODONE 10 mg oral tablet 1 tablet = 10 mg, By Mouth, Every 6 hours, for 28 days, for pain Dx Chronic LBP M54.9 to be dispensed not earlier than 08/18/19, # 112 tablet, 0 Refills, Acute 09/15/19 9:10:00 EST, 08/18/19 9:10:00 EST Start Date: 08/18/19 Stop Date: 09/15/19 Status: Ordered Roho cushion Roho cushion, See [...]
--- OUTSIDE RECORDS SUMMARY | 2023-11-04 06:10 | XMS_ITS | Continuity of Care Document ---
Author Name Unknown Organization [facility] Address Unknown Care Team Providers Care Starcher And Tenter Range Feeder Name Role Phone Shane Moon MD Primary Care Physician [place] [facility] [place] 09/03/21 [place] 10/27/21 [facility] Attending Physician: Shane Moon MD Admitting Physician: [...] Maintenance,10/12/20 10:52:00 EST, Route to Pharmacy Electronically, [facility]/pharmacy #[id number], 174.5, cm, 10/12/20 10:15:00 EST, Height [...] 5 Refills, Maintenance, 03/06/21 13:31:00 EDT, Aerosol, [facility]/pharmacy #0843, Partial fill upon patient request if the prescription is for a schedule II opioid drug., 1 puffs... Start Date: 03/06/21 Status: Ordered Flomax 0.4 mg oral capsule 0.4 mg, 1, capsule, By Mouth, Daily, # 30 capsule, Refills 5, Tot. 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
--- OUTSIDE RECORDS SUMMARY | 2023-11-04 06:10 | XMS_ITS | Continuity of Care Document ---
Author Name Unknown Organization [facility] Address [address] [place] [address]- Care Team Providers Care Trim Operator Name Role Phone Shane Moon MD Primary Care Physician [place] [facility] [place] - 07/28/20 [facility] [address] [address]- Attending Physician: Shane Moon MD Admitting Physician: [...] 100 tablet, Refills 3, Tot. Refills 3, Maintenance,06/28/20 19:12:00 EDT, Route to Pharmacy Electronically, [facility]/pharmacy #[id number], 174.5, cm, 10/18/19 11:26:00 EST, Height Start Date: 06/28/20 Status: Ordered BiPAP Machine See Instructions, # 1 each, Maintenance, AutoBiPAP with EPAP min of 10 and IPAP max of 18 with PS of 6, 01/27/20 9:49:00 EDT, Compound Start Date: 01/27/20 Status: Ordered Flomax 0.4 mg oral capsule 0.4 mg, 1, capsule, By Mouth, Daily, # 30 capsule, Refills 11, Tot. Refills 11, Maintenance, 06/28/20 19:12:00 EDT, Route to Pharmacy Electronically, [facility]/pharmacy #[id number], 174.5, cm, 10/18/19 11:26:00 EST, Height Start Date: 06/28/20 Status: Ordered gabapentin 400 mg oral capsule 400 mg, 1, capsule, By Mouth, 3 times a day, # 90 capsule, Refills 11, Tot. Refills 11, Maintenance, 06/28/20 19:12:00 EDT, Route to Pharmacy Electronically, [facility]/pharmacy #[id number], 174.5, cm, 10/18/19 11:26:00 EST, Height Start Date: 06/28/20 Status: Ordered nortriptyline 25 mg oral capsule 25 mg, 1, capsule, By Mouth, Daily at bedtime, # 30 capsule, Refills 11, Tot. Refills 11, Maintenance, 06/28/20 19:13:00 EDT, Route to Pharmacy Electronically, [facility]/pharmacy #[id number], 174.5, cm, 10/18/2010:26:00 EST, Height Start Date: 06/28/20 Status: Ordered oxybutynin 5 mg oral tablet 1-2 tablet, By Mouth, 2 times a day, # 90 tablet, 11 Refills, Maintenance, 06/28/20 19:12:00 EDT, [facility]/pharmacy #[id number], 174.5, cm, 10/18/19 11:26:00 EST, Height Start Date: 06/28/20 Stop Date: 06/23/21 Status: Ordered oxyCODONE 10 mg oral tablet 1 tablet = 10 mg, By Mouth, Every 4 hours, for 28 days, Do not exceed 5 tablets in 24 hours PRN pain Fill not earlier than 07/26/20 1 of 3, # 140 tablet, 0 Refills, Acute 08/23/20 14:04:00 EST, 07/26/20 14:04:00 EST, [facility]/pharmacy #[id number], partial araceli... Start Date: 07/26/20 Stop Date: 08/23/20 Status: Ordered oxyCODONE 10 mg oral tablet 1 tablet = 10 mg, By Mouth, Every 4 hours, for 28 days, Do not exceed 5 tablets in 24 hours PRN pain Fill not earlier than 08/23/20 2 of 3, # 140 tablet, 0 Refills, Acute 09/20/20 14:08:00 EST, 08/23/20 14:08:00 EST, [facility]/pharmacy #[id number], partial araceli... Start Date: 08/23/20 Stop Date: 09/20/20 Status: Ordered oxyCODONE 10 mg oral tablet 1 tablet = 10 mg, By Mouth, Every 4 hours, for 28 days, Do not exceed 5 tablets in 24 hours PRN pain Fill not earlier than 09/20/20 4 of 4, # 140 tablet, 0 Refills, Acute 10/18/20 14:10:00 EST, 09/20/20 14:10:00 EST, [facility]/pharmacy #[id number], partial fi... Start Date: 09/20/20 Stop Date: 10/18/20 Status: Ordered Replacement prosthetic liner Replacement prosthetic liner, See Instructions, # 2 each, Refills 0, Tot. Refills 0, Maintenance, Dx right below knee amputation Z89.511 wt 297 pounds, 10/18/19 11:59:00 EST, Compound Start Date: 10/18/19 Status: Ordered Topamax 50 mg oral tablet 1 tablet = 50 mg, By Mouth, 2 times a day, # 60 tablet, 11 Refills, Maintenance, 06/28/20 19:12:00 EDT, [facility]/pharmacy #[id number], 174.5, cm, 10/18/19 11:26:00 EST, Height Start Date: 06/28/20 Status: Ordered triamcinolone 0.1% topical cream 1 applicator, Topically, 2 times a day, # 15 Gm, 1 Refills, Maintenance, 06/28/20 19:13:00 EDT, [facility]/pharmacy #[id number], 1 applicator Topically 2 times a day, 174.5, cm, 10/18/19 11:26:00 EST, Height Start Date: 06/28/20 Status: Ordered Vitamin D3 1000 intl units oral tablet 1 tablet = 1,000 International_Units, By Mouth, Daily, # 30 tablet, 11 Refills, Maintenance, 06/28/20 19:12:00 EDT, [facility]/pharmacy #[id number], 174.5, cm, 10/18/19 11:26:00 EST, Height Start Date: 06/28/20 Status: Ordered Problem List Condition Effective Dates [...] knee(Confirmed) 1998 Active Glucose intolerance (pre-diabetes)(Confirmed) Active [facility] current use of opi ate analgesic- chronic [...]
--- OUTSIDE RECORDS SUMMARY | 2023-11-04 06:10 | XMS_ITS | Continuity of Care Document ---
Author Name Unknown Organization [facility] Address [address] [place] [address]- Care Team Providers Care Taker Off Name Role Phone Sarai MORGAN, Shane Primary Care Physician [place] [facility] [place] - 09/07/[address] [address] Attending Physician: Shane Moon MD Admitting Physician: [...] Maintenance,06/28/20 19:12:00 EDT, Route to Pharmacy Electronically, [facility]/pharmacy #[id number], 174.5, cm, 10/18/19 11:26:00 EST, Height [...] 06/28/20 19:12:00 EDT, Route to Pharmacy Electronically, [facility]/pharmacy #[id number], 174.5, cm, 10/18/19 11:26:00 EST, Height Start Date: 06/28/20 Status: Ordered gabapentin 400 mg oral capsule 400 mg, 1, capsule, By Mouth, 3 times a day, # 90 capsule, Refills 11, Tot. Refills 11, Maintenance, 06/28/20 19:12:00 EDT, Route to Pharmacy Electronically, [facility]/pharmacy #[id number], 174.5, cm, 10/18/19 11:26:00 EST, Height Start Date: 06/28/20 Status: Ordered nortriptyline 25 mg oral capsule 25 mg, 1, capsule, By Mouth, Daily at bedtime, # 30 capsule, Refills 11, Tot. Refills 11, Maintenance, 06/28/20 19:13:00 EDT, Route to Pharmacy Electronically, [facility]/pharmacy #[id number], 174.5, cm, 10/18/2010:26:00 EST, Height Start Date: 06/28/20 Status: Ordered oxybutynin 5 mg oral tablet 1-2 tablet, By Mouth, 2 times a day, # 90 tablet, 11 Refills, Maintenance, 06/28/20 19:12:00 EDT, [facility]/pharmacy #[id number], 174.5, cm, 10/18/19 11:26:00 EST, Height Start Date: 06/28/20 Stop Date: 06/23/21 Status: Ordered oxyCODONE 10 mg oral tablet 1 tablet = 10 mg, By Mouth, Every 4 hours, for 28 days, Do not exceed 5 tablets in 24 hours PRN pain Fill not earlier than 08/23/20 2 of 3, # 140 tablet, 0 Refills, Acute 09/20/20 14:08:00 EST, 08/23/20 14:08:00 EST, [facility]/pharmacy #[id number], partial araceli... Start Date: 08/23/20 Stop Date: 09/20/20 Status: Ordered oxyCODONE 10 mg oral tablet 1 tablet = 10 mg, By Mouth, Every 4 hours, for 28 days, Do not exceed 5 tablets in 24 hours PRN pain Fill not earlier than 09/20/20 4 of 4, # 140 tablet, 0 Refills, Acute 10/18/20 14:10:00 EST, 09/20/20 14:10:00 EST, [facility]/pharmacy #[id number], partial fi... 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
--- OUTSIDE RECORDS SUMMARY | 2023-11-04 06:10 | XMS_ITS | Continuity of Care Document ---
Author Name Unknown Organization [facility] Address [address] [place] [address]- Care Team Providers Care Polisher Eyeglass Frames Name Role Phone Sarai MORGAN, Shane Primary Care Physician [place] [facility] [place] 05/22/22 [facility] [address]- Attending Physician: Jun Calhoun Admitting Physician: AdmtrJun Referring Physician: Admtr, Ar8 Allergies, Adverse Reactions, [...] Maintenance,10/12/20 10:52:00 EST, Route to Pharmacy Electronically, [facility]/pharmacy #[id number], 174.5, cm, 10/12/20 10:15:00 EST, Height [...] 5 Refills, Maintenance, 03/06/21 13:31:00 EDT, Aerosol, [facility]/pharmacy #[id number], Partial fill upon patient request if the prescription is for a schedule II opioid drug., 1 puffs... Start Date: 03/06/21 Status: Ordered Flomax 0.4 mg oral capsule 0.4 mg, 1, capsule, By Mouth, Daily, # 30 capsule, Refills 5, Tot. Refills 5, Maintenance, 218:59:00 EDT, Route to Pharmacy Electronically, [facility] #[id number], 174.5, cm, 02/01/21 10:52:00 EDT, Height Start Date: 02/05/21 Status: Ordered gabapentin 300 mg oral capsule 300 mg, 1, capsule, By Mouth, Daily, Use at noon time Continue gabapentin 600 mg capsules twice daily, # 30 capsule, Refills 11, Tot. Refills 11, Maintenance, 11/16/21 13:54:00 EST, Route to PharmacyElectronically, [facility]/pharmacy #[id number], Partial fill... Start Date: 11/16/21 Status: Ordered gabapentin 600 mg oral tablet 1 tablet = 600 mg, By Mouth, 3 times a day, discontinue gabapentin 300mg, # 60 tablet, 11 Refills, Maintenance, 04/22/22 14:56:00 EDT, Tablet, [facility]/pharmacy #[id number], Partial fill upon patient request ifthe prescription is for a schedule II opioid drug.... Start Date: 04/22/22 Status: Ordered nortriptyline 50 mg oral capsule 50 mg, 1, capsule, By Mouth, Daily at bedtime, Discontinue nortriptyline 25 mg, # 30 capsule, Refills 11, Tot. Refills 11, Maintenance, 08/09/21 12:41:00 EST, Route to Pharmacy Electronically, [facility]/pharmacy #[id number], Partial fill upon patient request if [...] 168tablet, Refills 0, Tot. Refills 0, Acute 09... 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
--- OUTSIDE RECORDS SUMMARY | 2023-11-04 06:10 | XMS_ITS | Continuity of Care Document ---
Author Name Unknown Organization [facility] Address [address] [place] [address]- Care Team Providers Care Building Tech Name Role Phone Sarai MORGAN, Shane Primary Care Physician [place] [facility] [place] Date(s): 11/06/20 - 12/06/20 [facility] De [address] [address]- Allergies, Adverse Reactions, Alerts Substance Reaction Severity [...] Maintenance,10/12/20 10:52:00 EST, Route to Pharmacy Electronically, [facility]/pharmacy #[id number], 174.5, cm, 10/12/20 10:15:00 EST, Height [...] 10/12/20 10:52:00 EST, Route to Pharmacy Electronically, [facility]/pharmacy #[id number], 174.5, cm, 10/12/20 10:15:00 EST, Height Start Date: 10/12/20 Status: Ordered gabapentin 600 mg oral tablet 1 tablet = 600 mg, By Mouth, 3 times a day, Discontinue gabapentin 400 mg, # 90 tablet, 11 Refills,Maintenance, 10/12/20 10:50:00 EST, Tablet, [facility]/pharmacy #[id number], Partial fill upon patient request if the prescription is for a schedule II opioid drug.... Start Date: 10/12/20 Status: Ordered nortriptyline 25 mg oral capsule 25 mg, 1, capsule, By Mouth, Daily at bedtime, # 30 capsule, Refills 11, Tot. Refills 11, Maintenance, 10/12/20 10:52:00 EST, Route to Pharmacy Electronically, [facility]/pharmacy #[id number], 174.5, cm, 10/12/2109:15:00 EST, Height Start Date: 10/12/20 Status: Ordered oxybutynin 10 mg/24 hr oral tablet, extended release 1 tablet = 10 mg, By Mouth, Daily, Discontinue oxybutynin 5 mg, # 30 tablet, 11 Refills, Maintenance, 10/12/20 10:53:00 EST, ER Tablet, [facility]/pharmacy #[id number], 174.5, cm, 10/12/20 10:15:00 EST, Height Start Date: 10/12/20 Status: Ordered oxyCODONE 10 mg oral tablet 1 tablet = 10 mg, By Mouth, Every 4 hours, for 28 days, Do not exceed 5 tablets in 24 hours PRN pain Fill not earlier than 11/15/20, # 140 tablet, 0 Refills, Acute 12/13/20 14:10:00 EDT, 11/15/20 14:10:00 EST, [facility]/pharmacy #[id number], partial fill upon r... Start Date: 11/15/20 Stop Date: 12/13/20 Status: Ordered oxyCODONE 10 mg oral tablet 1 tablet = 10 mg, By Mouth, Every 4 hours, for 28 days, Do not exceed 5 tablets in 24 hours PRN pain Fill not earlier than 12/13/20, # 140 tablet, 0 Refills, Acute 01/10/21 14:10:00 EDT, 12/13/20 14:10:00 EDT, [id number], partial fill upon r... Start Date: 12/13/20 Stop Date: 01/10/21 Status: Ordered Replacement prosthetic liner Replacement prosthetic [...] knee(Confirmed) 1998 Active Glucose intolerance (pre-diabetes)(Confirmed) Active [facility] current use of opi ate analgesic- chronic [...] (less than 100 in lifetime) entered on: 10/12/20 Sex
--- OUTSIDE RECORDS SUMMARY | 2023-11-04 06:10 | XMS_ITS | Continuity of Care Document ---
Author Name Unknown Organization [facility] Address [address] [place] [address]- Care Team Providers Care Store Hand Name Role Phone Sarai MORGAN, Shane Primary Care Physician Encounter [facility] [place] Date(s): 08/14/20 - 09/13/[address] [address]- Attending Physician: Jun Calhoun Admitting Physician: AdmJun franks Referring Physician: AdmtrJun Allergies, Adverse Reactions, Alerts [...] Maintenance,06/28/20 19:12:00 EDT, Route to Pharmacy Electronically, [facility]/pharmacy #[id number], 174.5, cm, 10/18/19 11:26:00 EST, Height [...] 06/28/20 19:12:00 EDT, Route to Pharmacy Electronically, [facility]/pharmacy #[id number], 174.5, cm, 10/18/19 11:26:00 EST, Height Start Date: 06/28/20 Status: Ordered gabapentin 400 mg oral capsule 400 mg, 1, capsule, By Mouth, 3 times a day, # 90 capsule, Refills 11, Tot. Refills 11, Maintenance, 06/28/20 19:12:00 EDT, Route to Pharmacy Electronically, [facility]/pharmacy #[id number], 174.5, cm, 10/18/19 11:26:00 EST, Height Start Date: 06/28/20 Status: Ordered nortriptyline 25 mg oral capsule 25 mg, 1, capsule, By Mouth, Daily at bedtime, # 30 capsule, Refills 11, Tot. Refills 11, Maintenance, 06/28/20 19:13:00 EDT, Route to Pharmacy Electronically, [facility]/pharmacy #[id number], 174.5, cm, 10/18/2010:26:00 EST, Height Start Date: 06/28/20 Status: Ordered oxybutynin 5 mg oral tablet 1-2 tablet, By Mouth, 2 times a day, # 90 tablet, 11 Refills, Maintenance, 06/28/20 19:12:00 EDT, [facility]/pharmacy #[id number], 174.5, cm, 10/18/19 11:26:00 EST, Height Start Date: 06/28/20 Stop Date: 06/23/21 Status: Ordered oxyCODONE 10 mg oral tablet 1 tablet = 10 mg, By Mouth, Every 4 hours, for 28 days, Do not exceed 5 tablets in 24 hours PRN pain Fill not earlier than 08/23/20 2 of 3, # 140 tablet, 0 Refills, Acute 09/20/20 14:08:00 EST, 08/23/20 14:08:00 EST, [facility]/pharmacy #[id number], partial araceli... Start Date: 08/23/20 Stop Date: 09/20/20 Status: Ordered oxyCODONE 10 mg oral tablet 1 tablet = 10 mg, By Mouth, Every 4 hours, for 28 days, Do not exceed 5 tablets in 24 hours PRN pain Fill not earlier than 09/20/20 4 of 4, # 140 tablet, 0 Refills, Acute 10/18/20 14:10:00 EST, 09/20/20 14:10:00 EST, [facility]/pharmacy #[id number], partial fi... Start Date: 09/20/20 Stop [...] Gm, 1 Refills, Maintenance, 06/28/20 19:13:00 EDT, [facility]/pharmacy #[id number], 1 applicator Topically 2 times a day, 174.5, cm, 10/18/19 11:26:00 EST, Height Start Date: 06/28/20 Status: Ordered Vitamin D3 1000 intl units oral tablet 1 tablet = 1,000 International_Units, By Mouth, Daily, # 30 tablet, 11 Refills, Maintenance, 06/28/20 19:12:00 EDT, [facility]/pharmacy #[id number], 174.5, cm, 10/18/19 11:26:00 EST, Height [...]
--- OUTSIDE RECORDS SUMMARY | 2023-11-04 06:10 | XMS_ITS | Continuity of Care Document ---
Author Name Unknown Organization [facility] Address [address] [place] [address]- Care Team Providers Care Harvest Manager Name Role Phone Sarai MORGAN, Shane Primary Care Physician Encounter [facility] Date(s): 12/19/20 - 01/18/21 [facility] [place] [address] [place] [address]- Allergies, Adverse Reactions, Alerts Substance Reaction Severity [...] Maintenance,10/12/20 10:52:00 EST, Route to Pharmacy Electronically, [facility]/pharmacy #[id number], 174.5, cm, 10/12/20 10:15:00 EST, Height Start Date: 10/12/20 Status: Ordered BiPAP Machine See Instructions, # 1 each, Maintenance, AutoBiPAP with EPAP min of 10 and IPAP max of 18 with PS of 6, 01/27/20 9:49:00 EDT, Compound Start Date: 01/27/20 Status: Ordered famotidine 20 mg oral tablet 20 mg, 1, tablet, By Mouth, 2 times a day, for 30 days, Acute treatment, please do not request refill, # 60 tablet, Refills 0, Tot. Refills 0, Acute 01/27/21 13:41:00 EDT, 12/28/20 13:41:00 EDT, Route to Pharmacy Electronically, [facility]/pharmacy #[id number], Pa... Start Date: 12/28/20 Stop Date: 01/27/21 Status: Ordered Flomax 0.4 mg oral capsule 0.4 mg, 1, capsule, By Mouth, Daily, # 30 capsule, Refills 11, Tot. Refills 11, Maintenance, 10/12/20 10:52:00 EST, Route to Pharmacy Electronically, [facility]/pharmacy #[id number], 174.5, cm, 10/12/20 10:15:00 EST, Height Start Date: 10/12/20 Status: Ordered gabapentin 600 mg oral tablet 1 tablet = 600 mg, By Mouth, 3 times a day, Discontinue gabapentin 400 mg, # 90 tablet, 11 Refills,Maintenance, 10/12/20 10:50:00 EST, Tablet, [facility]/pharmacy #[id number], Partial fill upon patient request if the prescription is for a schedule II opioid drug.... Start Date: 10/12/20 Status: Ordered nortriptyline 25 mg oral capsule 25 mg, 1, capsule, By Mouth, Daily at bedtime, # 30 capsule, Refills 11, Tot. Refills 11, Maintenance, 10/12/20 10:52:00 EST, Route to Pharmacy Electronically, [facility]/pharmacy #[id number], 174.5, cm, 10/12/2109:15:00 EST, Height Start Date: 10/12/20 Status: Ordered oxybutynin 10 mg/24 hr oral tablet, extended release 1 tablet = 10 mg, By Mouth, Daily, Discontinue oxybutynin 5 mg, # 30 tablet, 11 Refills, Maintenance, 10/12/20 10:53:00 EST, ER Tablet, [facility]/pharmacy #[id number], 174.5, cm, 10/12/20 10:15:00 EST, Height Start Date: 10/12/20 Status: Ordered oxyCODONE 10 mg oral tablet 1 tablet = 10 mg, By Mouth, Every 4 hours, for 28 days, Do not exceed 5 tablets in 24 hours PRN pain Fill not earlier than 01/10/21, # 140 tablet, 0 Refills, Acute 02/07/21 14:10:00 EDT, 01/10/21 14:10:00 EDT, [id number], partial fill upon r... 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
--- OUTSIDE RECORDS SUMMARY | 2023-11-04 06:10 | XMS_ITS | Continuity of Care Document ---
Author Name Unknown Organization [facility] Address Unknown Care Team Providers Care Music Cataloguer Name Role Phone Sarai MORGAN, Shane Primary Care Physician [place] [facility] [place]14[place]21 - 09/27/21 [facility] Attending Physician: Corey Hunt MD Admitting Physician: Corey Hunt MD Allergies, Adverse Reactions, Alerts Substance Reaction [...] 10:52:00 EST, Route to Pharmacy Electronically, [facility]/pharmacy #[id number], 174.5, cm, 10/12/20 10:15:00 EST, Height [...] 5 Refills, Maintenance, 03/06/21 13:31:00 EDT, Aerosol, [facility]/pharmacy #[id number], Partial fill upon patient request if the prescription is for a schedule II opioid drug., 1 puffs... Start Date: 03/06/21 Status: Ordered Flomax 0.4 mg oral capsule 0.4 mg, 1, capsule, By Mouth, Daily, # 30 capsule, Refills 5, Tot. Refills 5, Maintenance, :59:00 EDT, Route to Pharmacy Electronically, [facility] #[id number], 174.5, cm, 02/01/21 10:52:00 EDT, Height Start Date: 02/05/21 Status: Ordered gabapentin 600 mg oral tablet 1 tablet = 600 mg, By Mouth, 2 times a day, Dose change, # 60 tablet, 11 Refills, Maintenance, 08/09/21 12:40:00 EST, Tablet, [facility]/pharmacy #[id number], Partial fill upon patient request if the prescriptionis for a schedule II opioid drug., 174.5, cm, 08/09... Start Date: 08/09/21 Status: Ordered nortriptyline 50 mg oral capsule 50 mg, 1, capsule, By Mouth, Daily at bedtime, Discontinue nortriptyline 25 mg, # 30 capsule, Refills 11, Tot. Refills 11, Maintenance, 08/09/21 12:41:00 EST, Route to Pharmacy Electronically, [facility]/pharmacy #[id number], Partial fill upon patient request if [...] 4 1998 Active Glucose intolerance (pre-diabetes)(Confirmed) Active termination [...]
--- OUTSIDE RECORDS SUMMARY | 2023-11-04 06:10 | XMS_ITS | Continuity of Care Document ---
Author Name Unknown Organization [facility] Address [address] [place] [address]- Care Team Providers Care Conduit Bender Name Role Phone Sarai MORGAN, Shane Primary Care Physician En[place] [facility] [place] Date(s): 03/27/20 - 04/26/20 [facility] De [address] [address]- [facility] Allergies, Adverse Reactions, Alerts Substance Reaction Severity [...] Maintenance,10/11/19 8:52:00 EST, Route to Pharmacy Electronically, [facility] #[id number], 174.5, cm, 08/31/19 11:34:00 EST, Height Start [...] 12/06/19 14:35:00 EDT, Route to Pharmacy Electronically, [facility] #[id number], 174.5, cm, 10/18/19 11:26:00 EST, Height Start Date: 12/06/19 Status: Ordered gabapentin 400 mg oral capsule 400 mg, 1, capsule, By Mouth, 3 times a day, discontinue gabapentin 800mg, # 90 capsule, Refills 11, Tot. Refills 11, Maintenance, 12/06/19 14:34:00 EDT, Route to Pharmacy Electronically, [facility] #[id number], 174.5, cm, 10/18/19 11:26:00 EST,... Start Date: 12/06/19 Status: Ordered nortriptyline 25 mg oral capsule 25 mg, 1, capsule, By Mouth, Daily at bedtime, # 30 capsule, Refills 11, Tot. Refills 11, Maintenance, 09/08/19 8:50:00 EST, Route to Pharmacy Electronically, [facility] #[id number], 174.5, cm, 08/31/19 11:34:00 EST, Height Start Date: 09/08/19 Status: Ordered oxybutynin 5 mg oral tablet 1-2 tablet, By Mouth, 2 times a day, # 90 tablet, 11 Refills, Maintenance, 09/16/19 9:09:00 EST, [facility] #[id number], 174.5, cm, 08/31/19 11:34:00 EST, Height Start Date: 09/16/19 Stop Date: 09/10/20 Status: Ordered oxyCODONE 10 mg oral tablet 1 tablet = 10 mg, By Mouth, Every 4 hours, for 28 days, to be dispensed not earlier than 04/03/20 Donot exceed 5 tablets in 24 hours PRN pain, # 140 tablet, 0 Refills, Acute 05/01/20 12:25:00 EDT, 04/03/20 12:25:00 EDT, [facility] #[id number]... Start Date: 04/03/20 Stop Date: 05/01/20 Status: Ordered Replacement prosthetic liner Replacement prosthetic [...] tablet, 11 Refills, Maintenance, 02/11/20 14:13:00 EDT, [facility] #[id number], 174.5, cm, 10/18/19 11:26:00 EST, Height Start Date: 02/11/20 Status: Ordered triamcinolone 0.1% topical cream 1 applicator, Topically, 2 times a day, # 15 Gm, 1 Refills, Maintenance, 01/06/20 10:02:00 EDT, [facility] #[id number], 1 applicator Topically 2 times a day, [...]
--- OUTSIDE RECORDS SUMMARY | 2023-11-04 06:10 | XMS_ITS | Continuity of Care Document ---
Author Name Unknown Organization [facility] Address [address] [place] [address]- Care Team Providers Care Cereal Popper Name Role Phone Sarai MORGAN, Shane Primary Care Physician Encounter [facility] Date(s): 06/17/23 - 07/17/23 [facility]/[place] [address]- [place] Allergies, Adverse Reactions, Alerts Substance Reaction [...] 50 tablet, 11 Refills, Maintenance, 10/28/22 11:21:00 [facility], [facility]/pharmacy #[id number], Partial fill upon patient request if the [...] 60 tablet, 11 Refills, Maintenance, 10/28/2310:11:00 EST, [facility]/pharmacy #[id number], Partial fill upon patient request if the prescription is for a schedule II opioid drug., 174.5, cm, 10/28/22 10:21:00... Start Date: 10/28/22 Status: Ordered Discontinue ASA Discontinue ASA, See Instructions, # 1 each, Refills 0, Tot. Refills 0, Acute 07/18/23 13:00:00 EDT, Discontinue mentioned medication, 07/17/23 12:53:00 EDT, Supply, 174.5, cm, 07/17/23 11:47:00 EDT,Height, 141.54, kg, 07/17/23 11:47:00 EDT, Dry Weight Start Date: 07/17/23 Stop Date: 07/18/23 Status: Ordered duloxetine 20 mg oral enteric coated capsule 1 capsule = 20 mg, By Mouth, Daily, # 30 capsule, 5 Refills, Maintenance, 07/17/23 12:45:00 EDT, [facility]/pharmacy #[id number], 174.5, cm, 07/17/23 11:47:00 EDT, Height, 141.54, kg, 07/17/23 11:47:00 EDT, Dry Weight Start Date: 07/17/23 Status: Ordered Flomax 0.4 mg oral capsule 0.4 mg, 1, capsule, By Mouth, Daily, # 30 capsule, Refills 11, Tot. Refills 11, Maintenance, 08/12/22 12:46:00 EST, Route to Pharmacy Electronically, [facility]/pharmacy #[id number], 174.5, cm, 08/12/22 11:28:00 EST, [...] tablet, 3 Refills, Maintenance, 03/13/23 11:51:00 EDT, [facility]/pharmacy #[id number], 174.5, cm, 02/20/23 15:42:00 EDT, Height, 142.63, kg, 05/11/21 15:13:00 EDT, Dry Weight Start Date: 03/13/23 Status: Ordered Narcan 4 mg/0.1 mL nasal spray 1 spray, Naris, Left, Once, may repeat every 2 to 3 minutes until patient responds alternating nostril, # 2 each, 0 Refills, Soft Stop, 03/31/23 14:34:00 EDT, [facility]/pharmacy #[id number], Partial fill upon patient request if the prescription is for a schedule... Start Date: 03/31/23 Status: Ordered nortriptyline 50 mg oral capsule 50 mg, 1, capsule, By Mouth, Daily at bedtime, # 30 capsule, Refills 11, Tot. Refills 11, Maintenance, 08/12/22 12:46:00 EST, Route to Pharmacy Electronically, [facility]/pharmacy #[id number], 174.5, cm, 08/12/2211:28:00 EST, Height, 142.63, kg, 05/11/21 15:13:00... Start Date: 08/12/22 Status: Ordered oxybutynin 10 mg/24 hr oral tablet, extended release 1 tablet = 10 mg, By Mouth, Daily, Discontinue oxybutynin 5 mg, # 30 tablet, 11 Refills, Maintenance, 10/12/20 10:53:00 EST, ER Tablet, [facility]/pharmacy #[id number], 174.5, cm, 10/12/20 10:15:00 EST, Height Start Date: 10/12/20 Status: Ordered oxyCODONE 5 mg oral tablet 5 mg, 1, tablet, By Mouth, Every 4 hours, for 28 days, chronic LBP M54.9 fill date 07/23/2023, # 168 tablet, Refills 0, Tot. Refills 0, Acute 11/29/23 15:51:00 EST, 07/23/23 15:51:00 EDT, Print Requisition, Partial fill upon patient request if t... Start Date: 07/23/23 Stop Date: 08/20/23 Status: Ordered oxyCODONE 5 mg oral tablet 5 mg, 1, tablet, By Mouth, Every 4 hours, for 28 days, chronic LBP M54.9 fill date 08/20/2023, # 168 tablet, Refills 0, Tot. Refills 0, Acute 09/17/23 15:51:00 EST, 08/20/23 15:51:00 EST, Print Requisition, Partial fill upon patient request if t... Start Date: 08/20/23 Stop Date: 09/17/23 Status: Ordered oxyCODONE 5 mg oral tablet 5 mg, 1, tablet, By Mouth, Every 4 hours, for 28 days, chronic LBP M54.9 fill date 09/17/2023, # 168 tablet, Refills 0, Tot. Refills 0, Acute 10/15/23 15:51:00 EST, 09/17/23 15:51:00 EST, Print Requisition, Partial fill upon patient request if t... Start Date: 09/17/23 Stop Date: 10/15/23 Status: Ordered oxyCODONE 5 mg oral tablet [...] 0, Maintenance,Dx right below knee amputation Z89.511 iqwbnm409.45 Kg umueyq202.5cm, 06/26/22 14:02:00 EDT, Compound Start Date: 06/26/22 Status: Ordered Topamax 100 mg oral tablet 1 tablet = 100 mg, By Mouth, 2 times a day, Discontinue topiramate to 50 mg, # 60 tablet, 11 Refills, Maintenance, 10/28/22 11:07:00 EST, Tablet, [id number], Partial fill upon patient requestif the prescription is for a schedule II opioid yaw... Start Date: 10/28/22 Status: Ordered triple antibiotic ointment triple antibiotic ointment, 1, application, Topically, Daily, for 14 days, # 15 Gm, Refills 0, Tot.Refills 0, Acute 07/31/23 12:43:00 EST, skin wound, 07/17/23 12:43:00 EDT, Compound, 174.5, cm, 07/17/23 11:47:00 EDT, Height, 141.54, kg, 07/17/23 11:... 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
--- OUTSIDE RECORDS SUMMARY | 2023-11-04 06:10 | XMS_ITS | Continuity of Care Document ---
Author Name Unknown Organization [facility] Address [address] [place] [address]- Care Team Providers Care Anesthesiologist Physician Name Role Phone Sarai MORGAN, Shane Primary Care Physician [place] [facility] [place] 06/28/22 - 07/28/22 [facility]/[place] [address]- [place] Allergies, Adverse Reactions, Alerts Substance Reaction [...] Maintenance,10/12/20 10:52:00 EST, Route to Pharmacy Electronically, [facility]/pharmacy #[id number], 174.5, cm, 10/12/20 10:15:00 EST, Height Start Date: 10/12/20 Status: Ordered BiPAP Machine See Instructions, # 1 each, Maintenance, AutoBiPAP with EPAP min of 10 and IPAP max of 18 with PS of 6, 05/07/20 9:49:00 EDT, Compound Start Date: 01/27/20 Status: Ordered Combivent Respimat 20 mcg-100 mcg/inh inhalation aerosol 1 puffs, Inhalation, 4 times a day, PRN Wheezing/Shortness of Breath, # 4 Gm, 5 Refills, Maintenance, 03/06/21 13:31:00 EDT, Aerosol, [facility]/pharmacy #[id number], Partial fill upon patient request if the prescription is for a schedule II opioid drug., 1 puffs... Start Date: 03/06/21 Status: Ordered Flomax 0.4 mg oral capsule 0.4 mg, 1, capsule, By Mouth, Daily, # 30 capsule, Refills 5, Tot. Refills 5, Maintenance, 218:59:00 EDT, Route to Pharmacy Electronically, [facility] #[id number], 174.5, cm, 02/01/21 10:52:00 EDT, Height Start Date: 02/05/21 Status: Ordered gabapentin 800 mg oral tablet 1 tablet = 800 mg, By Mouth, 3 times a day, discontinue gabapentin 600mg, # 90 tablet, 11 Refills, Maintenance, 06/26/22 13:53:00 EDT, Tablet, [id number], Partial fill upon patient request ifthe prescription is for a schedule II opioid drug.... Start Date: 06/26/22 Status: Ordered nortriptyline 50 mg oral capsule [...] 28 days, Chronic LBP M54.9 fill date 07/15/22 If oxycodone 5 mg is not available, can dispense oxycodone 10 mg 0.5 tablets every 4 hours 84 tablets, # 168 tablet, Refills 0, Tot. Refills 0, Acute 11... Start Date: 07/15/22 Stop Date: 08/12/22 Status: Ordered Right leg prothesis with liner Right leg prothesis with liner, See Instructions, # 1 each, Refills 0, Tot. Refills 0, Maintenance,Dx right below knee amputation Z89.511 [id number] Kg xdqahl543.5cm, 06/26/22 14:02:00 EDT, Compound Start Date: 06/26/22 Status: Ordered Topamax 50 mg oral tablet [...] Date: 10/12/20 Status: Ordered Problem List Condition Confirmation Course [...] extremity below knee 4 Confirmed 1998 Active assisted current use of opiate analgesic- chronic LBP, [...] 100 in lifetime) entered on: 05/18/21 Sex Patient Care team information Personnel Name: Sarai MORGAN, Shane Address: Address: [address] [place] [address]
--- OUTSIDE RECORDS SUMMARY | 2023-11-04 06:10 | XMS_ITS | Continuity of Care Document ---
Author Name Unknown Organization [facility] Address Unknown Care Team Providers Care Analyzer Sales Name Role Phone Sarai MORGAN, Shane Primary Care Physician Encounter [facility] Date(s): 02/28/22 - 03/30/22 [facility] Allergies, Adverse Reactions, Alerts Substance Reaction [...] Maintenance,10/12/20 10:52:00 EST, Route to Pharmacy Electronically, [facility]/pharmacy #[id number], 174.5, cm, 10/12/20 10:15:00 [...] 5 Refills, Maintenance, 03/06/21 13:31:00 EDT, Aerosol, [facility]/pharmacy #[id number], Partial fill upon patient request if the prescription is for a schedule II opioid drug., 1 puffs... Start Date: 03/06/21 Status: Ordered Flomax 0.4 mg oral capsule 0.4 mg, 1, capsule, By Mouth, Daily, # 30 capsule, Refills 5, Tot. Refills 5, Maintenance, 218:59:00 EDT, Route to Pharmacy Electronically, [facility] #[id number], 174.5, cm, 02/01/21 10:52:00 EDT, Height Start Date: 02/05/21 Status: Ordered gabapentin 300 mg oral capsule 300 mg, 1, capsule, By Mouth, Daily, Use at noon time Continue gabapentin 600 mg capsules twice daily, # 30 capsule, Refills 11, Tot. Refills 11, Maintenance, 11/16/21 13:54:00 EST, Route to PharmacyElectronically, [facility]/pharmacy #[id number], Partial fill... Start Date: 11/16/21 Status: Ordered gabapentin 600 mg oral tablet 1 tablet = 600 mg, By Mouth, 2 times a day, Dose change, # 60 tablet, 11 Refills, Maintenance, 08/09/21 12:40:00 EST, Tablet, [facility]/pharmacy #[id number], Partial fill upon patient request if the prescriptionis for a schedule II opioid drug., 174.5, cm, 08/09... Start Date: 08/09/21 Status: Ordered nortriptyline 50 mg oral capsule 50 mg, 1, capsule, By Mouth, Daily at bedtime, Discontinue nortriptyline 25 mg, # 30 capsule, Refills 11, Tot. Refills 11, Maintenance, 08/09/21 12:41:00 EST, Route to Pharmacy Electronically, [facility]/pharmacy #[id number], Partial fill upon patient [...] knee(Confirmed) 1998 Active Glucose intolerance (pre-diabetes)(Confirmed) Active retirement current use of opi ate analgesic- chronic [...]
--- OUTSIDE RECORDS SUMMARY | 2023-11-04 06:10 | XMS_ITS | Continuity of Care Document ---
Author Name Unknown Organization [facility] Address Unknown Care Team Providers Care Service Desk Agent Name Role Phone Sarai MORGAN, Shane Primary Care Physician En[place] [facility] [place] Date(s): 07/23/21 - 08/29/21 [facility] Attending Physician: Corey Hunt MD Admitting Physician: [...] EST, Route to Pharmacy Electronically, [facility]/pharmacy #[id number], 174.5, cm, 10/12/20 10:15:00 EST, Height [...] Maintenance, 03/06/21 13:31:00 EDT, Aerosol, [facility]/pharmacy #[id number], Partial fill upon patient request if the prescription is for a schedule II opioid drug., 1 puffs... Start Date: 03/06/21 Status: Ordered Flomax 0.4 mg oral capsule 0.4 mg, 1, capsule, By Mouth, Daily, # 30 capsule, Refills 5, Tot. Refills 5, Maintenance, 218:59:00 EDT, Route to Pharmacy Electronically, [facility] #[id number], 174.5, cm, 02/01/21 10:52:00 EDT, Height Start [...] Status: Ordered oxyCODONE 10 mg oral tablet 0.5 tablet = 5 mg, By Mouth, Every 8 hours, for 28 days, Chronic LBP M54.9 discontinue Suboxone Discontinue oxycodone 5 mg prescription because medication is not available, # 42 tablet, 0 Refills, Acute 09/11/21 16:22:00 EST, 08/14/21 16:22:00 E... Start Date: 08/14/21 Stop Date: 09/11/21 Status: Ordered oxyCODONE 5 mg oral tablet 5 mg, 1, tablet, By Mouth, Every 8 hours, for 28 days, Chronic LBP M54.9 discontinue Suboxone, # 70tablet, Refills 0, Tot. Refills 0, Acute 09/06/21 12:45:00 EST, 08/09/21 12:45:00 EST, Print Requisition, Partial fill upon patient request if the... Start Date: 08/09/21 Stop Date: 09/06/21 Status: Ordered Replacement prosthetic liner Replacement prosthetic [...] knee(Confirmed) 1998 Active Glucose intolerance (pre-diabetes)(Confirmed) Active senior care current use of opi ate analgesic- chronic [...]
--- OUTSIDE RECORDS SUMMARY | 2023-11-04 06:10 | XMS_ITS | Continuity of Care Document ---
Author Name Unknown Organization [facility] Address [address] [place] [address]- Care Team Providers Care Milling Planer Operator Name Role Phone Sarai MORGAN, Shane Primary Care Physician Encounter [facility] [place] Date(s): 01/06/20 - 01/16/20 [facility]/[address] [address]- [facility] Attending Physician: Admtiny, [employer] Admitting Physician: Admtr, [...] Maintenance,10/11/19 8:52:00 EST, Route to Pharmacy Electronically, [facility] #[id number], 174.5, cm, 08/31/19 11:34:00 EST, Height Start Date: 10/11/19 Status: Ordered BiPAP Machine See Instructions, # 1 each, Maintenance, AutoBiPAP with EPAP min of 8 and IPAP max of 18 with PS of6, 08/31/19 12:16:18 EST, Compound Start Date: 08/31/19 Status: Ordered Flomax 0.4 mg oral capsule 0.4 mg, 1, capsule, By Mouth, Daily, # 30 capsule, Refills 11, Tot. Refills 11, Maintenance, 12/06/19 14:35:00 EDT, Route to Pharmacy Electronically, [facility] #[id number], 174.5, cm, 10/18/19 11:26:00 EST, Height Start Date: 12/06/19 Status: Ordered gabapentin 400 mg oral capsule 400 mg, 1, capsule, By Mouth, 3 times a day, discontinue gabapentin 800mg, # 90 capsule, Refills 11, Tot. Refills 11, Maintenance, 12/06/19 14:34:00 EDT, Route to Pharmacy Electronically, [facility] #[id number], 174.5, cm, 10/18/19 11:26:00 EST,... Start Date: 12/06/19 Status: Ordered nortriptyline 25 mg oral capsule 25 mg, 1, capsule, By Mouth, Daily at bedtime, # 30 capsule, Refills 11, Tot. Refills 11, Maintenance, 09/08/19 8:50:00 EST, Route to Pharmacy Electronically, [facility] #[id number], 174.5, cm, 08/31/19 11:34:00 EST, Height Start Date: 09/08/19 Status: Ordered oxybutynin 5 mg oral tablet 1-2 tablet, By Mouth, 2 times a day, # 90 tablet, 11 Refills, Maintenance, 09/16/19 9:09:00 EST, [facility] #[id number], 174.5, cm, 08/31/19 11:34:00 EST, Height Start Date: 09/16/19 Stop Date: 09/10/20 Status: Ordered oxyCODONE 10 mg oral tablet 1 tablet = 10 mg, By Mouth, Every 4 hours, for 28 days, to be dispensed not earlier than 01/10/20 Donot exceed 5 tablets in 24 hours PRN pain, # 140 tablet, 0 Refills, Acute 02/07/20 12:25:00 EDT, 01/10/20 12:25:00 EDT, [facility] #[id number]... Start Date: 01/10/20 Stop Date: 02/07/20 Status: [...] Gm, 1 Refills, Maintenance, 01/06/20 10:02:00 EDT, [facility] #[id number], 1 applicator Topically 2 times a day, [...]
--- OUTSIDE RECORDS SUMMARY | 2023-11-04 06:10 | XMS_ITS | Continuity of Care Document ---
Author Name Unknown Organization [facility] Address [address] [place] [address]- Care Team Providers Care Washateria Attendant Name Role Phone Sarai MORGAN, Shane Primary Care Physician Encounter [facility] [place] Date(s): 09/04/23 - 10/04/[address] [address] Attending Physician: Jun Calhoun Admitting Physician: AdmtrJun [...] tablet, 11 Refills, Maintenance, 10/28/22 11:21:00 EST, [facility]/pharmacy #[id number], Partial fill upon patient request if the [...] 0, Maintenance,Dx right below knee amputation Z89.511 .45 Kg cscyjq350.5cm, 06/26/22 14:02:00 EDT, Compound Start Date: 06/26/22 Status: Ordered tamsulosin 0.4 mg oral capsule See Instructions, [facility] , # 90 capsule, Refills 1, Maintenance, 07/28/23 14:56:00 EST, Instructions Replace Required Details, Route to Pharmacy Electronically, [facility] [id number], 174.5, cm, 07/17/23 11:47:00 EDT, Height, 141.54,... Start Date: 07/28/23 Status: Ordered Topamax 100 mg oral tablet 1 tablet = 100 mg, By Mouth, 2 times a day, Discontinue topiramate to 50 mg, # 60 tablet, 11 Refills, Maintenance, 10/28/22 11:07:00 EST, Tablet, [facility]/pharmacy #[id number], Partial fill upon patient requestif the [...] Active Hypertension associated with diabetes Confirmed Active penitentiary current use of opiate analgesic- chronic LBP, [...] Care Team Personnel Name: Shannon Noonan Position: [facility] Outreach Member Role: Lifetime Consulting Physician Name: Sarai MORGAN, Shane Position: [facility] Physician - Primary Care Member Role: PCP Address: Address: [address] [place] [address]- Care Team Related Persons Name: CLAUDIA FLEMING Address: home [address] [place] [address] Name: KAY GUIDO Address: [address] [place] [address]
--- OUTSIDE RECORDS SUMMARY | 2023-11-04 06:10 | XMS_ITS | Continuity of Care Document ---
Author Name Unknown Organization [facility] Address [address] [place] [address]- Care Team Providers Care Records Management Engineer Name Role Phone Sarai MORGAN, Shane Primary Care Phys[id number] Date[facility] 10/14/19 - 10/14/[address] [address]- [facility] Discharge Disposition: A-D/C Walkout Attending Physician: Not on Staff, Attending MD Admitting Physician: Not on Staff, Admitting MD Referring Physician: Not on Staff, Referring MD Allergies, Adverse Reactions, Alerts Substance Reaction [...] Maintenance,10/11/19 8:52:00 EST, Route to Pharmacy Electronically, [facility] #[id number], 174.5, cm, 08/31/19 11:34:00 EST, Height Start [...] 10/19/18 11:19:38 EST, Route to Pharmacy Electronically, [id number], [id number] Start Date: 10/19/18 Status: Ordered gabapentin 400 mg oral capsule 400 mg, 1, capsule, By Mouth, 3 times a day, discontinue gabapentin 800mg, # 90 capsule, Refills 11, Tot. Refills 11, Maintenance, 12/21/18 9:06:29 EDT, Route to Pharmacy Electronically, [id number], [facility] [id number] Start Date: 12/21/18 Status: Ordered Medrol 4 [...] 09/08/19 8:50:00 EST, Route to Pharmacy Electronically, [facility] #[id number], 174.5, cm, 08/31/19 11:34:00 EST, Height Start Date: 09/08/19 Status: Ordered oxybutynin 5 mg oral tablet 1-2 tablet, By Mouth, 2 times a day, # 90 tablet, 11 Refills, Maintenance, 09/16/19 9:09:00 EST, [facility] #[id number], 174.5, cm, 08/31/19 11:34:00 EST, Height Start Date: 09/16/19 Stop Date: 09/10/20 Status: Ordered Roho cushion Roho cushion, See [...] Most recent to oldest [Reference Range]: 1 Oxygen Saturation [94-100 %] 98 % (10/14/19 8:28 PM) Pulse Rate [55-90 bpm] 99 bpm *H* (10/14/19 8:28 PM) Blood Pressure [90-138/55-84 mm Hg] 147/ 88mm Hg *H* (10/14/19 8:28 PM) Respiratory Rate [16-30 br/min] 18 br/mi n (10/14/19 8:28 PM) Temperature [96.8-100.4 DegF] 98.5 DegF (10/14/19 8:28 PM) Mode of Delivery (Oxygen) Room air (10/14/19 8:28 PM) Blood pressure sites Arm, right (10/14/19 8:28 PM) Temperature Route Oral (10/14/19 8:28 PM) Social History Social History Type Response Smoking Status Never (less than 100 in lifetime) entered on: 06/10/19 Sex
--- OUTSIDE RECORDS SUMMARY | 2023-11-04 06:10 | XMS_ITS | Continuity of Care Document ---
Author Name Unknown Organization [facility] Address [address] [place] [address]- Care Team Providers Care Campus Director Name Role Phone Sarai MORGAN, Shane Primary Care Physician Encounter [facility] [place] Date(s): 07/09/22 - 08/08/22 [facility]/[address] [address]- [place] Allergies, Adverse Reactions, Alerts Substance Reaction [...] Maintenance,10/12/20 10:52:00 EST, Route to Pharmacy Electronically, [facility]/pharmacy #[id number], 174.5, cm, 10/12/20 10:15:00 [...] 5 Refills, Maintenance, 03/06/21 13:31:00 EDT, Aerosol, [facility]/pharmacy #[id number], Partial fill upon patient request if the prescription is for a schedule II opioid drug., 1 puffs... Start Date: 03/06/21 Status: Ordered Flomax 0.4 mg oral capsule 0.4 mg, 1, capsule, By Mouth, Daily, # 30 capsule, Refills 5, Tot. Refills 5, Maintenance, 218:59:00 EDT, Route to Pharmacy Electronically, [facility] #[id number], 174.5, cm, 02/01/21 10:52:00 EDT, Height Start Date: 02/05/21 Status: Ordered gabapentin 800 mg oral tablet 1 tablet = 800 mg, By Mouth, 3 times a day, discontinue gabapentin 600mg, # 90 tablet, 11 Refills, Maintenance, 06/26/22 13:53:00 EDT, Tablet, [facility]/pharmacy #[id number], Partial fill upon patient [...] 0, Maintenance,Dx right below knee amputation Z89.511 hohcle257.45 Kg jsoued255.5cm, 06/26/22 14:02:00 EDT, Compound Start Date: 06/26/22 [...] extremity below knee 4 Confirmed 1998 Active skilled nursing current use of opiate analgesic- chronic LBP, [...] on: 05/18/21 Sex Patient Care team information Care Team Personnel Name: Shannon Noonan Position: [facility] Outreach Member Role: Lifetime Consulting Physician Name: Shane Moon MD Position: [facility] Primary Care Physician Member Role: PCP Address: Address: [address] [place] [address]- Care Team Related Persons Name: CLAUDIA FLEMING Address: [address] [place] [address] Name: KAY GUIDO Address: [address] [place] [address]
--- OUTSIDE RECORDS SUMMARY | 2023-11-04 06:10 | XMS_ITS | Continuity of Care Document ---
Author Name Unknown Organization [facility] Address [address] [place] [id number]- Care Team Providers Care Spinneret Person Name Role Phone Sarai MORGAN, Shane Primary Care Physician [place] [facility] [place]/09/20 - 06/08/20 [facility] [address] [address]- [facility] Attending Physician: Jun Calhoun Admitting Physician: Jun Calhoun Referring Physician: AdmJun franks Allergies, Adverse Reactions, Alerts Substance Reaction Severity [...] Maintenance,10/11/19 8:52:00 EST, Route to Pharmacy Electronically, [facility] #[id number], 174.5, cm, 08/31/19 11:34:00 EST, Height Start [...] 12/06/19 14:35:00 EDT, Route to Pharmacy Electronically, [facility] #[id number], 174.5, cm, 10/18/19 11:26:00 EST, Height Start Date: 12/06/19 Status: Ordered gabapentin 400 mg oral capsule 400 mg, 1, capsule, By Mouth, 3 times a day, discontinue gabapentin 800mg, # 90 capsule, Refills 11, Tot. Refills 11, Maintenance, 12/06/19 14:34:00 EDT, Route to Pharmacy Electronically, [facility] #[id number], 174.5, cm, 10/18/19 11:26:00 EST,... Start Date: 12/06/19 Status: Ordered nortriptyline 25 mg oral capsule 25 mg, 1, capsule, By Mouth, Daily at bedtime, # 30 capsule, Refills 11, Tot. Refills 11, Maintenance, 09/08/19 8:50:00 EST, Route to Pharmacy Electronically, [facility] #[id number], 174.5, cm, 08/31/19 11:34:00 EST, Height Start Date: 09/08/19 Status: Ordered oxybutynin 5 mg oral tablet 1-2 tablet, By Mouth, 2 times a day, # 90 tablet, 11 Refills, Maintenance, 09/16/19 9:09:00 EST, [facility] #[id number], 174.5, cm, 08/31/19 11:34:00 EST, Height Start Date: 09/16/19 Stop Date: 09/10/20 Status: Ordered oxyCODONE 10 mg oral tablet 1 tablet = 10 mg, By Mouth, Every 4 hours, for 28 days, Do not exceed 5 tablets in 24 hours PRN pain, # 140 tablet, 0 Refills, Acute 06/28/20 14:22:00 EDT, 05/31/20 14:22:00 EDT, [facility]#[id number], partial fill upon request; Dx Chronic L... Start Date: 05/31/20 Stop Date: 06/28/20 Status: Ordered Replacement prosthetic liner Replacement prosthetic [...] tablet, 11 Refills, Maintenance, 02/11/20 14:13:00 EDT, [facility] #[id number], 174.5, cm, 10/18/19 11:26:00 EST, Height Start Date: 02/11/20 Status: Ordered triamcinolone 0.1% topical cream 1 applicator, Topically, 2 times a day, # 15 Gm, 1 Refills, Maintenance, 01/06/20 10:02:00 EDT, [facility] #[id number], 1 applicator Topically 2 times a day, [...]
--- OUTSIDE RECORDS SUMMARY | 2023-11-04 06:10 | XMS_ITS | Continuity of Care Document ---
Author Name Unknown Organization [facility] Address [address] [place] [address]- Care Team Providers Care Computing Tutor Name Role Phone Sarai MORGAN, Shane Primary Care Physician [place] [facility] [place] 07/14/23 - 08/13/23 [facility] [address]- [place] Allergies, Adverse Reactions, Alerts Substance Reaction [...] tablet, 11 Refills, Maintenance, 10/28/22 11:21:00 EST, [facility]/pharmacy #[id number], Partial fill upon patient request if the [...] 08/12/22 12:46:00 EST, [id number] 174.5, cm, 08/12/2211:28:00 EST, Height, 142.63, kg, 05/11/21 15:13:00... Start Date: 08/12/22 Status: Ordered oxybutynin 10 mg/24 hr oral tablet, extended release 1 tablet = 10 mg, By Mouth, Daily, Discontinue oxybutynin 5 mg, # 30 tablet, 11 Refills, Maintenance, 10/12/20 10:53:00 EST, [id number] 174.5, cm, 10/12/20 10:15:00 EST, Height Start Date: 10/12/20 Status: Ordered oxyCODONE 5 mg oral tablet 5 mg, 1, tablet, By Mouth, Every 4 hours, for 28 days, chronic LBP M54.9 fill date 07/23/2023, # 168 tablet, Refills 0, Tot. Refills 0, Acute 08/20/23 15:51:00 EST, 07/23/23 15:51:00 EDT, Print Requisition, [...] 0, Maintenance,Dx right below knee amputation Z89.511 [id number] Kg uxqytr223.5cm, 06/26/22 14:02:00 EDT, Compound Start Date: 06/26/22 Status: Ordered tamsulosin 0.4 mg oral capsule See Instructions, [facility] , # 90 capsule, Refills 1, Maintenance, 07/28/23 14:56:00 EST, Instructions Replace Required Details, Route to Pharmacy Electronically, [id number], 174.5, cm, 07/17/23 11:47:00 EDT, Height, 141.54,... [...] Active Hypertension associated with diabetes Confirmed Active senior care current use of opiate analgesic- chronic LBP, [...] Care Team Personnel Name: Shannon Noonan Position: [facility] Outreach Member Role: Lifetime Consulting Physician Name: Shane Moon MD Position: [facility] Physician - Primary Care Member Role: PCP Address: Address: [address] [place] [address]- Care Team Related Persons Name: CLAUDIA FLEMING Address: home [address] [place] [address] Name: KAY GUIDO Address: home [address] [place] [address]
--- OUTSIDE RECORDS SUMMARY | 2023-11-04 06:10 | XMS_ITS | Continuity of Care Document ---
Author Name Unknown Organization [facility] Address [address] [place] [address]- Care Team Providers Care Test Designer Name Role Phone Sarai MORGAN, Shane Primary Care Physician Encounter [facility] Date(s): 01/12/21 - 02/11/21 [facility] [place] [address] [place] [address]- Allergies, Adverse Reactions, Alerts Substance Reaction Severity [...] Maintenance,10/12/20 10:52:00 EST, Route to Pharmacy Electronically, [facility]/pharmacy #[id number], 174.5, cm, 10/12/20 [...] PRN Wheezing/Shortness of Breath, # 4 Gm, 0 Refills, Maintenance, 02/01/21 12:47:00 EDT, Aerosol, [facility]/pharmacy #[id number], Partial fill upon patient request if the prescription is for a schedule II opioid drug., 1 puffs... Start Date: 02/01/21 Status: Ordered Flomax 0.4 mg oral capsule 0.4 mg, 1, capsule, By Mouth, Daily, # 30 capsule, Refills 5, Tot. Refills 5, Maintenance, :59:00 EDT, Route to Pharmacy Electronically, [facility] #[id number], 174.5, cm, 02/01/21 10:52:00 EDT, Height Start Date: 02/05/21 Status: Ordered gabapentin 600 mg oral tablet 1 tablet = 600 mg, By Mouth, 3 times a day, Discontinue gabapentin 400 mg, # 90 tablet, 11 Refills,Maintenance, 10/12/20 10:50:00 EST, Tablet, [facility]/pharmacy #[id number], Partial fill upon patient request if the prescription is for a schedule II opioid drug.... Start Date: 10/12/20 Status: Ordered nortriptyline 25 mg oral capsule 25 mg, 1, capsule, By Mouth, Daily at bedtime, # 30 capsule, Refills 11, Tot. Refills 11, Maintenance, 10/12/20 10:52:00 EST, Route to Pharmacy Electronically, [facility]/pharmacy #[id number], 174.5, cm, 10/12/2109:15:00 [...] hours PRN pain Fill not earlier than 02/07/21, # 140 tablet, 0 Refills, Acute 03/07/21 14:10:00 EDT, 02/07/21 14:10:00 EDT, [id number], partial fill upon r... Start Date: 02/07/21 Stop Date: 03/07/21 Status: Ordered oxyCODONE 10 mg oral tablet 1 tablet = 10 mg, By Mouth, Every 4 hours, for 28 days, Do not exceed 5 tablets in 24 hours PRN pain Fill not earlier than 03/07/21, # 140 tablet, 0 Refills, Acute 04/04/21 14:10:00 EDT, 03/07/21 14:10:00 EDT, [id number], partial fill upon r... Start Date: 03/07/21 Stop Date: 04/04/21 Status: Ordered Replacement prosthetic liner Replacement prosthetic [...] # 60 tablet, 5 Refills, Maintenance, Headaches, 02/01/21 13:07:00 EDT, [id number], Partial fill upon patient request if the... 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
--- OUTSIDE RECORDS SUMMARY | 2023-11-04 06:11 | XMS_ITS | Continuity of Care Document ---
Author Name Unknown Organization [facility] Address [address] [place] [address]- Care Team Providers Care Accounting Lecturer Name Role Phone Sarai MORGAN, Shane Primary Care Physician [place] [facility] [place] 05/30/20 - 06/29/20 [facility] [address] [address]- [facility] Allergies, Adverse Reactions, Alerts Substance Reaction [...] Maintenance,06/28/20 19:12:00 EDT, Route to Pharmacy Electronically, [facility]/pharmacy #[id number], 174.5, cm, 10/18/19 11:26:00 EST, Height Start [...] 06/28/20 19:12:00 EDT, Route to Pharmacy Electronically, [facility]/pharmacy #[id number], 174.5, cm, 10/18/19 11:26:00 EST, Height Start Date: 06/28/20 Status: Ordered gabapentin 400 mg oral capsule 400 mg, 1, capsule, By Mouth, 3 times a day, # 90 capsule, Refills 11, Tot. Refills 11, Maintenance, 06/28/20 19:12:00 EDT, Route to Pharmacy Electronically, [facility]/pharmacy #[id number], 174.5, cm, 10/18/19 11:26:00 EST, Height Start Date: 06/28/20 Status: Ordered nortriptyline 25 mg oral capsule 25 mg, 1, capsule, By Mouth, Daily at bedtime, # 30 capsule, Refills 11, Tot. Refills 11, Maintenance, 06/28/20 19:13:00 EDT, Route to Pharmacy Electronically, [facility]/pharmacy #[id number], 174.5, cm, 10/18/2010:26:00 EST, Height Start Date: 06/28/20 Status: Ordered oxybutynin 5 mg oral tablet 1-2 tablet, By Mouth, 2 times a day, # 90 tablet, 11 Refills, Maintenance, 06/28/20 19:12:00 EDT, [facility]/pharmacy #[id number], 174.5, cm, 10/18/19 11:26:00 EST, Height Start Date: 06/28/20 Stop Date: 06/23/21 Status: Ordered oxyCODONE 10 mg oral tablet 1 tablet = 10 mg, By Mouth, Every 4 hours, for 28 days, Do not exceed 5 tablets in 24 hours PRN pain 1 of 3, # 140 tablet, 0 Refills, Acute 07/26/20 19:06:00 EST, 06/28/20 19:06:00 EDT, [facility]/pharmacy #[id number], partial fill upon request; Dx Chronic LB... Start Date: 06/28/20 Stop Date: 07/26/20 Status: Ordered oxyCODONE 10 mg oral tablet 1 tablet = 10 mg, By Mouth, Every 4 hours, for 28 days, Do not exceed 5 tablets in 24 hours PRN pain Fill not earlier than 07/26/20 2 of 4, # 140 tablet, 0 Refills, Acute 08/23/20 19:06:00 EST, 07/26/20 19:06:00 EST, [facility]/pharmacy #[id number], partial araceli... Start Date: 07/26/20 Stop Date: 08/23/20 Status: Ordered oxyCODONE 10 mg oral tablet 1 tablet = 10 mg, By Mouth, Every 4 hours, for 28 days, Do not exceed 5 tablets in 24 hours PRN pain Fill not earlier than 08/23/20 3 of 4, # 140 tablet, 0 Refills, Acute 09/20/20 19:06:00 EST, 08/23/20 19:06:00 EST, [facility], partial araceli... Start Date: 08/23/20 Stop Date: 09/20/20 Status: Ordered oxyCODONE 10 mg oral tablet 1 tablet = 10 mg, By Mouth, Every 4 hours, for 28 days, Do not exceed 5 tablets in 24 hours PRN pain Fill not earlier than 09/20/20 4 of 4, # 140 tablet, 0 Refills, Acute 10/18/20 19:06:00 EST, 09/20/20 19:06:00 EST, [facility]/pharmacy #[id number], partial fi... Start Date: 09/20/20 Stop Date: [...] tablet, 11 Refills, Maintenance, 06/28/20 19:12:00 EDT, [facility]/pharmacy #[id number], 174.5, cm, 10/18/19 11:26:00 EST, Height Start Date: 06/28/20 Status: Ordered triamcinolone 0.1% topical cream 1 applicator, Topically, 2 times a day, # 15 Gm, 1 Refills, Maintenance, 06/28/20 19:13:00 EDT, [facility]/pharmacy #[id number], 1 applicator Topically 2 times a day, 174.5, cm, 10/18/19 11:26:00 EST, Height Start Date: 06/28/20 Status: Ordered Vitamin D3 1000 intl units oral tablet 1 tablet = 1,000 International_Units, By Mouth, Daily, # 30 tablet, 11 Refills, Maintenance, 06/28/20 19:12:00 EDT, [facility]/pharmacy #[id number], 174.5, cm, 10/18/19 11:26:00 EST, Height [...] 4 1998 Active Glucose intolerance (pre-diabetes)(Confirmed) Active 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
--- OUTSIDE RECORDS SUMMARY | 2023-11-04 06:11 | XMS_ITS | Continuity of Care Document ---
Author Name Unknown Organization [facility] Address [address] [place] [address]- Care Team Providers Care Insecticide Maker Name Role Phone Sarai MORGAN, Shane Primary Care Physician En[place] [facility] [place]s): 04/28/20 - 05/28/20 [facility] [address] [address]- [facility] Allergies, Adverse Reactions, Alerts Substance Reaction Severity [...] Maintenance,10/11/19 8:52:00 EST, Route to Pharmacy Electronically, [facility] #[id number], 174.5, cm, 08/31/19 11:34:00 EST, Height Start [...] 12/06/19 14:35:00 EDT, Route to Pharmacy Electronically, [facility] #[id number], 174.5, cm, 10/18/19 11:26:00 EST, Height Start Date: 12/06/19 Status: Ordered gabapentin 400 mg oral capsule 400 mg, 1, capsule, By Mouth, 3 times a day, discontinue gabapentin 800mg, # 90 capsule, Refills 11, Tot. Refills 11, Maintenance, 12/06/19 14:34:00 EDT, Route to Pharmacy Electronically, [facility] #[id number], 174.5, cm, 10/18/19 11:26:00 EST,... Start Date: 12/06/19 Status: Ordered nortriptyline 25 mg oral capsule 25 mg, 1, capsule, By Mouth, Daily at bedtime, # 30 capsule, Refills 11, Tot. Refills 11, Maintenance, 09/08/19 8:50:00 EST, Route to Pharmacy Electronically, [facility] #[id number], 174.5, cm, 08/31/19 11:34:00 EST, Height Start Date: 09/08/19 Status: Ordered oxybutynin 5 mg oral tablet 1-2 tablet, By Mouth, 2 times a day, # 90 tablet, 11 Refills, Maintenance, 09/16/19 9:09:00 EST, [facility] #[id number], 174.5, cm, 08/31/19 11:34:00 EST, Height Start Date: 09/16/19 Stop Date: 09/10/20 Status: Ordered oxyCODONE 10 mg oral tablet 1 tablet = 10 mg, By Mouth, Every 4 hours, for 28 days, to be dispensed not earlier than 05/01/20 Donot exceed 5 tablets in 24 hours PRN pain, # 140 tablet, 0 Refills, Acute 05/29/20 18:16:00 EDT, 05/01/20 18:16:00 EDT, [facility] #[id number]... Start Date: 05/01/20 Stop Date: 05/29/20 Status: Ordered Replacement prosthetic liner Replacement prosthetic [...] tablet, 11 Refills, Maintenance, 02/11/20 14:13:00 EDT, [facility] #[id number], 174.5, cm, 10/18/19 11:26:00 EST, Height Start Date: 02/11/20 Status: Ordered triamcinolone 0.1% topical cream 1 applicator, Topically, 2 times a day, # 15 Gm, 1 Refills, Maintenance, 01/06/20 10:02:00 EDT, [facility] #[id number], 1 applicator Topically 2 times a day, [...]
--- OUTSIDE RECORDS SUMMARY | 2023-11-04 06:11 | XMS_ITS | Continuity of Care Document ---
Author Name Unknown Organization [facility] Address [address] [place] [address]- Care Team Providers Care Inventory Control Clerk Name Role Phone Sarai MORGAN, Shane Primary Care Physician [place] [facility] [place] 08/02/22 [facility] [address]- [place] Allergies, Adverse Reactions, Alerts Substance Reaction [...] Maintenance,10/12/20 10:52:00 EST, Route to Pharmacy Electronically, [facility]/pharmacy #[id number], 174.5, cm, 10/12/20 10:15:00 [...] Maintenance, 218:59:00 EDT, Route to Pharmacy Electronically, [facility] #[id number], 174.5, cm, 02/01/21 10:52:00 EDT, Height Start [...] 0, Maintenance,Dx right below knee amputation Z89.511 hotvti520.45 Kg dhyzop948.5cm, 06/26/22 14:02:00 EDT, Compound Start Date: 06/26/22 [...] Noonan Position: [facility] Outreach Member Role: Lifetime Consulting Physician Name: Sarai MORGAN, Shane Position: [facility] Primary Care Physician Member Role: PCP Address: Address: [address] [place] [address]- Care Team Related Persons Name: CLAUDIA FLEMING Address: home [address] [place] [address] Name: KAY GUIDO Address: home [address] [place] [address]
--- OUTSIDE RECORDS SUMMARY | 2023-11-04 06:11 | XMS_ITS | Continuity of Care Document ---
Author Name Unknown Organization [facility] Address Unknown Care Team Providers Care Cotton Buyer Name Role Phone Sarai MORGAN, Shane Primary Care Physician En[place] [facility] [place] Date(s): 06/12/21 - 08/08/21 [facility] Attending Physician: Shane Moon MD [...] 10:52:00 EST, Route to Pharmacy Electronically, [facility]/pharmacy #[id number], 174.5, cm, 10/12/20 10:15:00 EST, [...] Refills, Maintenance, 03/06/21 13:31:00 EDT, Aerosol, [facility]/pharmacy #[id number], Partial fill upon patient request if the prescription is for a schedule II opioid drug., 1 puffs... Start Date: 03/06/21 Status: Ordered Flomax 0.4 mg oral capsule 0.4 mg, 1, capsule, By Mouth, Daily, # 30 capsule, Refills 5, Tot. Refills 5, Maintenance, :59:00 EDT, Route to Pharmacy Electronically, [facility] #[id number], 174.5, cm, 02/01/21 10:52:00 EDT, Height Start Date: 02/05/21 Status: Ordered gabapentin 600 mg oral tablet 1 tablet = 600 mg, By Mouth, 3 times a day, Discontinue gabapentin 400 mg, # 90 tablet, 11 Refills,Maintenance, 10/12/20 10:50:00 EST, Tablet, [facility]/pharmacy #[id number], Partial fill upon patient request if the prescription is for a schedule II opioid drug.... Start Date: 10/12/20 Status: Ordered nortriptyline 25 mg oral capsule 25 mg, 1, capsule, By Mouth, Daily at bedtime, # 30 capsule, Refills 11, Tot. Refills 11, Maintenance, 10/12/20 10:52:00 EST, Route to Pharmacy Electronically, [facility]/pharmacy #[id number], 174.5, cm, 10/12/2109:15:00 EST, Height [...] EST, Compound Start Date: 10/18/19 Status: Ordered Suboxone 8 mg-2 mg sublingual film 1.5 film, Sublingual, Daily, [id number] Scavron dissolve under the tongue Due 07/31/2021, # 21 film, 0 Refills, Maintenance, 07/25/21 8:34:00 EDT, Film, [facility], Partial fill upon patient request if the prescription is for a eric... Start Date: 07/25/21 Stop Date: 08/08/21 Status: Ordered Topamax 25 mg oral tablet 1 tablet = 25 mg, By Mouth, 2 times a day, for the first week use only at bedtime To be use with 50mg tablet, # 60 tablet, 5 Refills, Maintenance, Headaches, 03/05/21 15:49:00 EDT, [id number], Partial fill upon patient reques... Start Date: 03/05/21 Status: Ordered Topamax 50 mg oral tablet 1 tablet = 50 mg, By Mouth, 2 times a day, # 60 tablet, 11 Refills, Maintenance, 10/12/20 10:52:00 EST, [facility]/pharmacy #[id number], 174.5, cm, 10/12/20 10:15:00 EST, [...] EST, Height Start Date: 10/12/20 Status: Ordered Voltaren 1% topical gel = 2 Gm, Topically, 4 times a day, # 100 Gm, 5 Refills, Maintenance, 05/11/21 15:40:00 EDT, [facility]/pharmacy #[id number], Partial fill upon patient request if the prescription is for a schedule II opioid drug.,2 Gm Topically 4 times a day,x14 days, 174.5, cm, 0... 

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
--- OUTSIDE RECORDS SUMMARY | 2023-11-04 06:11 | XMS_ITS | Continuity of Care Document ---
Author Name Unknown Organization [facility] Address [address] [place] [address]- Care Team Providers Care System Trainer Name Role Phone Sarai MORGAN, Shane Primary Care Physician Encounter [facility] Date(s): 02/04/23 - 03/06/23 [facility] [address]- [place] Allergies, Adverse Reactions, Alerts Substance Reaction [...] tablet, 11 Refills, Maintenance, 10/28/22 11:21:00 EST, [facility]/pharmacy #[id number], Partial fill upon patient request if the prescription is for a... Start Date: 10/28/22 Status: Ordered aspirin 81 mg oral delayed release tablet 81 mg, 1, tablet, By Mouth, Daily, with food, # 100 tablet, Refills 3, Tot. Refills 3, Maintenance,08/12/22 12:46:00 EST, Route to Pharmacy Electronically, [facility]/pharmacy #[id number], 174.5, cm, 08/12/22 11:28:00 EST, [...] 60 tablet, 11 Refills, Maintenance, 10/28/2310:11:00 EST, [facility]/pharmacy #[id number], Partial fill upon patient request if the prescription is for a schedule II opioid drug., 174.5, cm, 10/28/22 10:21:00... Start Date: 10/28/22 Status: Ordered Flomax 0.4 mg oral capsule 0.4 mg, 1, capsule, By Mouth, Daily, # 30 capsule, Refills 11, Tot. Refills 11, Maintenance, 08/12/22 12:46:00 EST, Route to Pharmacy Electronically, [facility]/pharmacy #[id number], 174.5, cm, 08/12/22 11:28:00 EST, Height, 142.63, kg, 05/11/21 15:13:00 EDT, Dry... Start Date: 08/12/22 Status: Ordered gabapentin 800 mg oral tablet 1 tablet = 800 mg, By Mouth, 3 times a day, discontinue gabapentin 600mg, # 90 tablet, 11 Refills, Maintenance, 06/26/22 13:53:00 EDT, Tablet, [facility]/pharmacy #[id number], Partial fill upon patient request ifthe prescription is for a schedule II opioid drug.... Start Date: 06/26/22 Status: Ordered metoprolol 25 mg oral tablet, extended release 12.5 mg, 0.5, tablet, By Mouth, 2 times a day, # 30 tablet, Refills 0, Tot. Refills 0, Maintenance,02/07/23 11:56:00 EDT, Route to Pharmacy Electronically, [facility]/pharmacy #[id number], 174.5, cm, 02/07/23 11:39:00 EDT, Height, 142.63, kg, 05/11/21 15:13:00 ED... Start Date: 02/07/23 Stop Date: 03/09/23 Status: Ordered nortriptyline 50 mg oral capsule 50 mg, 1, capsule, By Mouth, Daily at bedtime, # 30 capsule, Refills 11, Tot. Refills 11, Maintenance, 08/12/22 12:46:00 EST, Route to Pharmacy Electronically, [facility]/pharmacy #[id number], 174.5, cm, 08/12/2211:28:00 EST, Height, 142.63, kg, 05/11/21 15:13:00... Start Date: 08/12/22 Status: Ordered oxybutynin 10 mg/24 hr oral tablet, extended release 1 tablet = 10 mg, By Mouth, Daily, Discontinue oxybutynin 5 mg, # 30 tablet, 11 Refills, Maintenance, 10/12/20 10:53:00 EST, ER Tablet, [facility]/pharmacy #[id number], 174.5, cm, 10/12/20 10:15:00 EST, Height Start Date: 10/12/20 Status: Ordered oxyCODONE 5 mg oral tablet 5 mg, 1, tablet, By Mouth, Every 4 hours, for 28 days, Chronic LBP M54.9 fill date 02/28/23, # 168 tablet, Refills 0, Tot. Refills 0, Acute 03/28/23 13:04:00 EDT, 02/28/23 13:04:00 EDT, Route to Pharmacy Electronically, [facility]/pharmacy #[id number], Partial... Start Date: 02/28/23 Stop Date: 03/28/23 Status: Ordered oxyCODONE 5 mg oral tablet 5 mg, 1, tablet, By Mouth, Every 4 hours, for 28 days, Chronic LBP M54.9 fill date 03/28/23, # 168 tablet, Refills 0, Tot. Refills 0, Acute 04/25/23 13:04:00 EDT, 03/28/23 13:04:00 EDT, Route to Pharmacy Electronically, [facility]/pharmacy #[id number], Partial... Start Date: 03/28/23 Stop Date: 04/25/23 Status: Ordered Right leg prothesis with liner Right leg prothesis with liner, See Instructions, # 1 each, Refills 0, Tot. Refills 0, Maintenance,Dx right below knee amputation Z89.511 .45 Kg [id number], 06/26/22 14:02:00 EDT, Compound Start Date: 06/26/22 Status: Ordered Topamax 100 mg oral tablet 1 tablet = 100 mg, By Mouth, 2 times a day, Discontinue topiramate to 50 mg, # 60 tablet, 11 Refills, Maintenance, 10/28/22 11:07:00 EST, Tablet, [facility]/pharmacy #[id number], Partial fill upon patient requestif the prescription is for a schedule II opioid yaw... 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
--- OUTSIDE RECORDS SUMMARY | 2023-11-04 06:11 | XMS_ITS | Continuity of Care Document ---
Author Name Unknown Organization [facility] Address [address] [place] [address]- Care Team Providers Care Dry Talc Racker Name Role Phone Shane Moon MD Primary Care Physician Encounter [facility] Date(s): 02/06/23 - 03/22/23 [facility]/[place] [address]- Attending Physician: Shane Moon MD Admitting Physician: [...] tablet, 11 Refills, Maintenance, 10/28/22 11:21:00 EST, [facility]/pharmacy #[id number], Partial fill upon patient request if the prescription is for a... Start Date: 10/28/22 Status: Ordered aspirin 81 mg oral delayed release tablet 81 mg, 1, tablet, By Mouth, Daily, with food, # 100 tablet, Refills 3, Tot. Refills 3, Maintenance,08/12/22 12:46:00 EST, Route to Pharmacy Electronically, [facility]/pharmacy #[id number], 174.5, cm, 08/12/22 11:28:00 EST, Height, [...] 60 tablet, 11 Refills, Maintenance, 10/28/2310:11:00 EST, [facility]/pharmacy #[id number], Partial fill upon patient request if the prescription is for a schedule II opioid drug., 174.5, cm, 10/28/22 10:21:00... Start Date: 10/28/22 Status: Ordered Flomax 0.4 mg oral capsule 0.4 mg, 1, capsule, By Mouth, Daily, # 30 capsule, Refills 11, Tot. Refills 11, Maintenance, 08/12/22 12:46:00 EST, Route to Pharmacy Electronically, [facility]/pharmacy #[id number], 174.5, cm, 08/12/22 11:28:00 EST, Height, 142.63, kg, 05/11/21 15:13:00 EDT, Dry... Start Date: 08/12/22 Status: Ordered gabapentin 800 mg oral tablet 1 tablet = 800 mg, By Mouth, 3 times a day, discontinue gabapentin 600mg, # 90 tablet, 11 Refills, Maintenance, 06/26/22 13:53:00 EDT, Tablet, [facility]/pharmacy #[id number], Partial fill upon patient request ifthe prescription is for a schedule II opioid drug.... Start Date: 06/26/22 Status: Ordered Metoprolol Succinate ER 25 mg oral tablet, extended release 0.5 tablet, By Mouth, 2 times a day, # 90 tablet, 3 Refills, Maintenance, 03/13/23 11:51:00 EDT, [facility]/pharmacy #[id number], 174.5, cm, 02/20/23 15:42:00 EDT, Height, 142.63, kg, 05/11/21 15:13:00 EDT, Dry Weight Start Date: 03/13/23 Status: Ordered Metoprolol Succinate ER 25 mg oral tablet, extended release 0.5 tablet, By Mouth, 2 times a day, for 30 days, # 30 tablet, 0 Refills, Hard Stop 04/11/23 11:42:00 EDT, 03/12/23 11:42:00 EDT, [id number], 174.5, cm, 02/20/23 15:42:00 EDT, Height, 142.63, kg, 05/11/21 15:13:00 EDT, Dry Weight Start Date: 03/12/23 Stop Date: 04/11/23 Status: Ordered nortriptyline 50 mg oral capsule 50 mg, 1, capsule, By Mouth, Daily at bedtime, # 30 capsule, Refills 11, Tot. Refills 11, Maintenance, 08/12/22 12:46:00 EST, Route to Pharmacy Electronically, [facility]/pharmacy #[id number], 174.5, cm, 08/12/2211:28:00 EST, Height, 142.63, kg, 05/11/21 15:13:00... Start Date: 08/12/22 Status: Ordered oxybutynin 10 mg/24 hr oral tablet, extended release 1 tablet = 10 mg, By Mouth, Daily, Discontinue oxybutynin 5 mg, # 30 tablet, 11 Refills, Maintenance, 10/12/20 10:53:00 EST, ER Tablet, [facility]/pharmacy #[id number], 174.5, cm, 10/12/20 10:15:00 EST, Height Start Date: 10/12/20 Status: Ordered oxyCODONE 5 mg oral tablet 5 mg, 1, tablet, By Mouth, Every 4 hours, for 28 days, Chronic LBP M54.9 fill date 02/28/23, # 168 tablet, Refills 0, Tot. Refills 0, Acute 03/28/23 13:04:00 EDT, 02/28/23 13:04:00 EDT, Route to Pharmacy Electronically, [facility]/pharmacy #[id number], Partial... Start Date: 02/28/23 Stop Date: 03/28/23 Status: Ordered oxyCODONE 5 mg oral tablet 5 mg, 1, tablet, By Mouth, Every 4 hours, for 28 days, Chronic LBP M54.9 fill date 03/28/23, # 168 tablet, Refills 0, Tot. Refills 0, Acute 04/25/23 13:04:00 EDT, 03/28/23 13:04:00 EDT, Route to Pharmacy Electronically, [facility]/pharmacy #[id number], Partial... Start Date: 03/28/23 Stop Date: 04/25/23 Status: Ordered Right leg prothesis with liner Right leg prothesis with liner, See Instructions, # 1 each, Refills 0, Tot. Refills 0, Maintenance,Dx right below knee amputation Z89.511 [id number] Kg .5cm, 06/26/22 14:02:00 EDT, Compound Start Date: 06/26/22 [...] extremity below knee 4 Confirmed 1998 Active detention current use of opiate analgesic- chronic LBP, [...] Care Team Personnel Name: Shannon Noonan Position: [facility] Outreach Member Role: Lifetime Consulting Physician Name: Shane Moon MD Position: [facility] Physician - Primary Care Member Role: PCP Address: Address: [address] [place] [address]- Care Team Related Persons Name: CLAUDIA FLMEING Address: [address] [place] [address] Name: KAY GUIDO Address: [address] [place] [address]
--- OUTSIDE RECORDS SUMMARY | 2023-11-04 06:11 | XMS_ITS | Continuity of Care Document ---
Author Name Unknown Organization [facility] Address Unknown Care Team Providers Care Analyst Microbiology Lab Name Role Phone Sarai MORGAN, Shane Primary Care Physician Encounter [facility] Date(s): 05/10/21 - 06/09/21 [facility] Allergies, Adverse Reactions, Alerts Substance [...] 10:52:00 EST, Route to Pharmacy Electronically, [facility]/pharmacy #[id number], 174.5, cm, 10/12/20 10:15:00 EST, Height Start Date: 10/12/20 Status: Ordered bifidobacterium-lactobacillus oral tablet 1 tablet, By Mouth, Daily, for 30 days, # 30 tablet, 0 Refills, Acute 06/17/21 17:10:00 EDT, 05/18/21 17:10:00 EDT, Tablet, [facility]/pharmacy #[id number], 50 billions CFU, 1 tablet By Mouth Daily,x30 days, 174.5, cm, 05/18/21 12:35:00 EDT, Height, 142.63, kg, 0... Start Date: 05/18/21 Stop Date: 06/17/21 Status: Ordered BiPAP Machine See Instructions, # 1 each, Maintenance, AutoBiPAP with EPAP min of 10 and IPAP max of 18 with PS of 6, 01/27/20 9:49:00 EDT, Compound Start Date: 01/27/20 Status: Ordered Carafate 1 gm oral tablet 1 Gm, 1, tablet, By Mouth, 2 times a day, PRN, for 30 days, # 60 tablet, Refills 0, Tot. Refills 0,Acute 06/17/21 17:10:00 EDT, as needed for upset stomach, 05/18/21 17:10:00 EDT, Route to Pharmacy Electronically, [facility]/pharmacy #[id number], Partial fill upo... Start Date: 05/18/21 Stop Date: 06/17/21 Status: Ordered Combivent Respimat 20 mcg-100 mcg/inh inhalation aerosol 1 puffs, Inhalation, 4 times a day, PRN Wheezing/Shortness of Breath, # 4 Gm, 5 Refills, Maintenance, 03/06/21 13:31:00 EDT, Aerosol, [facility]/pharmacy #[id number], Partial fill upon patient request if the prescription is for a schedule II opioid drug., 1 puffs... Start Date: 03/06/21 Status: Ordered Flomax 0.4 mg oral capsule 0.4 mg, 1, capsule, By Mouth, Daily, # 30 capsule, Refills 5, Tot. Refills 5, Maintenance, 218:59:00 EDT, Route to Pharmacy Electronically, [facility] #[id number], 174.5, cm, 02/01/21 10:52:00 EDT, Height Start Date: 02/05/21 Status: Ordered gabapentin 600 mg oral tablet 1 tablet = 600 mg, By Mouth, 3 times a day, Discontinue gabapentin 400 mg, # 90 tablet, 11 Refills,Maintenance, 10/12/20 10:50:00 EST, Tablet, [facility]/pharmacy #[id number], Partial fill upon patient request if the prescription is for a schedule II opioid drug.... Start Date: 10/12/20 Status: Ordered nortriptyline 25 mg oral capsule 25 mg, 1, capsule, By Mouth, Daily at bedtime, # 30 capsule, Refills 11, Tot. Refills 11, Maintenance, 10/12/20 10:52:00 EST, [id number] 174.5, cm, 10/12/2109:15:00 EST, Height Start Date: 10/12/20 Status: Ordered oxybutynin 10 mg/24 hr oral tablet, extended release 1 tablet = 10 mg, By Mouth, Daily, Discontinue oxybutynin 5 mg, # 30 tablet, 11 Refills, Maintenance, 10/12/20 10:53:00 EST, ER Tablet[id number] 174.5, cm, 10/12/20 10:15:00 EST, Height Start Date: 10/12/20 Status: Ordered Replacement prosthetic liner Replacement prosthetic liner, See Instructions, # 2 each, Refills 0, Tot. Refills 0, Maintenance, Dx right below knee amputation Z89.511 wt 297 pounds, 10/18/19 11:59:00 EST, Compound Start Date: 10/18/19 Status: Ordered Suboxone 8 mg-2 mg sublingual film 1.5 film, Sublingual, Daily, [id number] Scavron dissolve under the tongue Due 06/12/2021, # 11 film, 0 Refills, Maintenance, 06/05/21 12:19:00 EDT, Film, [facility], Partial fill upon patient request if the prescription is for a sc... Start Date: 06/05/21 Stop Date: 06/12/21 Status: Ordered Topamax 25 mg oral tablet 1 tablet = 25 mg, By Mouth, 2 times a day, for the first week use only at bedtime To be use with 50mg tablet, # 60 tablet, 5 Refills, Maintenance, Headaches, 03/05/21 15:49:00 EDT, [facility] #[id number], Partial fill upon patient reques... Start Date: [...] Gm, 5 Refills, Maintenance, 05/11/21 15:40:00 EDT, [facility]acy #[id number], Partial fill upon patient [...] knee(Confirmed) 1998 Active Glucose intolerance (pre-diabetes)(Confirmed) Active residential [...]
--- OUTSIDE RECORDS SUMMARY | 2023-11-04 06:11 | XMS_ITS | Continuity of Care Document ---
Author Name Unknown Organization [facility] Address Unknown Care Team Providers Care Grocery Store Clerk Name Role Phone Sarai MORGAN, Shane Primary Care Physician Encounter [facility] [place] [facility] R [id number] Date(s): 11/16/21 - 12/16/21 [facility] Attending Physician: Jun Calhoun Admitting [...] Maintenance,10/12/20 10:52:00 EST, Route to Pharmacy Electronically, [facility]/pharmacy #[id number], 174.5, cm, 10/12/20 10:15:00 EST, Height [...] 5 Refills, Maintenance, 03/06/21 13:31:00 EDT, Aerosol, [facility]/pharmacy #[id number], Partial fill upon patient request if the prescription is for a schedule II opioid drug., 1 puffs... Start Date: 03/06/21 Status: Ordered Flomax 0.4 mg oral capsule 0.4 mg, 1, capsule, By Mouth, Daily, # 30 capsule, Refills 5, Tot. Refills 5, Maintenance, 218:59:00 EDT, Route to Pharmacy Electronically, [facility] #[id number], 174.5, cm, 02/01/21 10:52:00 EDT, Height Start Date: 02/05/21 Status: Ordered gabapentin 300 mg oral capsule 300 mg, 1, capsule, By Mouth, Daily, Use at noon time Continue gabapentin 600 mg capsules twice daily, # 30 capsule, Refills 11, Tot. Refills 11, Maintenance, 11/16/21 13:54:00 EST, Route to PharmacyElectronically, [facility]/pharmacy #[id number], Partial fill... Start Date: 11/16/21 Status: Ordered gabapentin 600 mg oral tablet 1 tablet = 600 mg, By Mouth, 2 times a day, Dose change, # 60 tablet, 11 Refills, Maintenance, 08/09/21 12:40:00 EST, Tablet, [facility]/pharmacy #[id number], Partial fill upon patient request if the prescriptionis for a schedule II opioid drug., 174.5, cm, 08/09... Start Date: 08/09/21 Status: Ordered nortriptyline 50 mg oral capsule 50 mg, 1, capsule, By Mouth, Daily at bedtime, Discontinue nortriptyline 25 mg, # 30 capsule, Refills 11, Tot. Refills 11, Maintenance, 08/09/21 12:41:00 EST, Route to Pharmacy Electronically, [facility]/pharmacy #[id number], Partial fill upon patient request if t... Start Date: 08/09/21 Status: Ordered oxybutynin 10 mg/24 hr oral tablet, extended release 1 tablet = 10 mg, By Mouth, Daily, Discontinue oxybutynin 5 mg, # 30 tablet, 11 Refills, Maintenance, 10/12/20 10:53:00 EST, ER Tablet, [facility]/pharmacy #[id number], 174.5, cm, 10/12/20 10:15:00 EST, Height [...]
--- OUTSIDE RECORDS SUMMARY | 2023-11-04 06:11 | XMS_ITS | Continuity of Care Document ---
Author Name Unknown Organization [facility] Address [address] [place] [address]- Care Team Providers Care Flight Agent Name Role Phone Shane Moon MD [id number] 07[facility] [address] [place] [address] [facility] Attending Physician: Shane Moon MD Admitting Physician: [...] Maintenance,06/28/20 19:12:00 EDT, Route to Pharmacy Electronically, [facility]/pharmacy #[id number], 174.5, cm, 10/18/19 11:26:00 EST, Height [...] 06/28/20 19:12:00 EDT, Route to Pharmacy Electronically, [facility]/pharmacy #[id number], 174.5, cm, 10/18/19 11:26:00 EST, Height Start Date: 06/28/20 Status: Ordered gabapentin 400 mg oral capsule 400 mg, 1, capsule, By Mouth, 3 times a day, # 90 capsule, Refills 11, Tot. Refills 11, Maintenance, 06/28/20 19:12:00 EDT, Route to Pharmacy Electronically, [facility]/pharmacy #[id number], 174.5, cm, 10/18/19 11:26:00 EST, Height Start Date: 06/28/20 Status: Ordered nortriptyline 25 mg oral capsule 25 mg, 1, capsule, By Mouth, Daily at bedtime, # 30 capsule, Refills 11, Tot. Refills 11, Maintenance, 06/28/20 19:13:00 EDT, Route to Pharmacy Electronically, [facility]/pharmacy #[id number], 174.5, cm, 10/18/2010:26:00 EST, Height Start Date: 06/28/20 Status: Ordered oxybutynin 5 mg oral tablet 1-2 tablet, By Mouth, 2 times a day, # 90 tablet, 11 Refills, Maintenance, 06/28/20 19:12:00 EDT, [facility]/pharmacy #[id number], 174.5, cm, 10/18/19 11:26:00 EST, Height Start Date: 06/28/20 Stop Date: 06/23/21 Status: Ordered oxyCODONE 10 mg oral tablet 1 tablet = 10 mg, By Mouth, Every 4 hours, for 28 days, Do not exceed 5 tablets in 24 hours PRN pain 1 of 3, # 140 tablet, 0 Refills, Acute 07/26/20 19:06:00 EST, 06/28/20 19:06:00 EDT, [facility]/pharmacy #[id number], partial fill upon request; Dx Chronic [...] Acute 08/23/20 14:04:00 EST, 07/26/20 14:04:00 EST, [id number], partial araceli... Start Date: 07/26/20 Stop Date: 08/23/20 Status: Ordered oxyCODONE 10 mg oral tablet 1 tablet = 10 mg, By Mouth, Every 4 hours, for 28 days, Do not exceed 5 tablets in 24 hours PRN pain Fill not earlier than 08/23/20 2 of 3, # 140 tablet, 0 Refills, Acute 09/20/20 14:08:00 EST, 08/23/20 14:08:00 EST, [id number], partial araceli... Start Date: 08/23/20 Stop Date: 09/20/20 Status: Ordered oxyCODONE 10 mg oral tablet 1 tablet = 10 mg, By Mouth, Every 4 hours, for 28 days, Do not exceed 5 tablets in 24 hours PRN pain Fill not earlier than 09/20/20 4 of 4, # 140 tablet, 0 Refills, Acute 10/18/20 14:10:00 EST, 09/20/20 14:10:00 EST, [id number], partial fi... Start Date: 09/20/20 Stop [...] Gm, 1 Refills, Maintenance, 06/28/20 19:13:00 EDT, [facility]/pharmacy #[id number], 1 applicator Topically 2 times a day, 174.5, cm, 10/18/19 11:26:00 EST, Height Start Date: 06/28/20 Status: Ordered Vitamin D3 1000 intl units oral tablet 1 tablet = 1,000 International_Units, By Mouth, Daily, # 30 tablet, 11 Refills, Maintenance, 06/28/20 19:12:00 EDT, [facility]/pharmacy #[id number], 174.5, cm, 10/18/19 11:26:00 EST, Height [...] knee(Confirmed) 1998 Active Glucose intolerance (pre-diabetes)(Confirmed) Active [facility] current use of opi ate analgesic- chronic [...]
--- OUTSIDE RECORDS SUMMARY | 2023-11-04 06:11 | XMS_ITS | Continuity of Care Document ---
Author Name Unknown Organization [facility] Address [address] [place] [address]- Care Team Providers Care Inshore Undersea Warfare Officer Name Role Phone Sarai MORGAN, Shane Primary Care Physician Encounter [facility] Date(s): 06/27/20 - 07/27/20 [facility] [address] [address]- Allergies, Adverse Reactions, Alerts Substance Reaction Severity [...] Maintenance,06/28/20 19:12:00 EDT, Route to Pharmacy Electronically, [facility]/pharmacy #[id number], 174.5, cm, 10/18/19 11:26:00 EST, Height Start [...] 06/28/20 19:12:00 EDT, Route to Pharmacy Electronically, [facility]/pharmacy #[id number], 174.5, cm, 10/18/19 11:26:00 EST, Height Start Date: 06/28/20 Status: Ordered gabapentin 400 mg oral capsule 400 mg, 1, capsule, By Mouth, 3 times a day, # 90 capsule, Refills 11, Tot. Refills 11, Maintenance, 06/28/20 19:12:00 EDT, Route to Pharmacy Electronically, [facility]/pharmacy #[id number], 174.5, cm, 10/18/19 11:26:00 EST, Height Start Date: 06/28/20 Status: Ordered nortriptyline 25 mg oral capsule 25 mg, 1, capsule, By Mouth, Daily at bedtime, # 30 capsule, Refills 11, Tot. Refills 11, Maintenance, 06/28/20 19:13:00 EDT, Route to Pharmacy Electronically, [facility]/pharmacy #[id number], 174.5, cm, 10/18/2010:26:00 EST, Height Start Date: 06/28/20 Status: Ordered oxybutynin 5 mg oral tablet 1-2 tablet, By Mouth, 2 times a day, # 90 tablet, 11 Refills, Maintenance, 06/28/20 19:12:00 EDT, [facility]/pharmacy #[id number], 174.5, cm, 10/18/19 11:26:00 EST, [...] Acute 08/23/20 14:04:00 EST, 07/26/20 14:04:00 EST, [facility]/pharmacy #[id number], partial araceli... Start Date: 07/26/20 Stop Date: 08/23/20 Status: Ordered oxyCODONE 10 mg oral tablet 1 tablet = 10 mg, By Mouth, Every 4 hours, for 28 days, Do not exceed 5 tablets in 24 hours PRN pain Fill not earlier than 08/23/20 2 of 3, # 140 tablet, 0 Refills, Acute 09/20/20 14:08:00 EST, 08/23/20 14:08:00 EST, [facility]/pharmacy #[id number], partial araceli... 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
--- OUTSIDE RECORDS SUMMARY | 2023-11-04 06:11 | XMS_ITS | Continuity of Care Document ---
Author Name Unknown Organization [facility] Address [address] [place] [address]- Care Team Providers Care Flat Folding Machine Operator Name Role Phone Sarai MORGAN, Shane Primary Care Physician Encounter [facility] Date(s): 04/30/23 - 05/30/23 [facility]/[place] [address]- [place] Allergies, Adverse Reactions, Alerts Substance Reaction [...] tablet, 11 Refills, Maintenance, 10/28/22 11:21:00 EST, [facility]/pharmacy #[id number], Partial fill upon patient request if the prescription is for a... Start Date: 10/28/22 Status: Ordered aspirin 81 mg oral delayed release tablet 81 mg, 1, tablet, By Mouth, Daily, with food, # 100 tablet, Refills 3, Tot. Refills 3, Maintenance,08/12/22 12:46:00 EST, Route to Pharmacy Electronically, [facility]/pharmacy #[id number], 174.5, cm, 08/12/22 11:28:00 [...] 60 tablet, 11 Refills, Maintenance, 10/28/2310:11:00 EST, [facility]/pharmacy #[id number], Partial fill upon patient request if the prescription is for a schedule II opioid drug., 174.5, cm, 10/28/22 10:21:00... Start Date: 10/28/22 Status: Ordered Flomax 0.4 mg oral capsule 0.4 mg, 1, capsule, By Mouth, Daily, # 30 capsule, Refills 11, Tot. Refills 11, Maintenance, 08/12/22 12:46:00 EST, Route to Pharmacy Electronically, [facility]/pharmacy #[id number], 174.5, cm, 08/12/22 11:28:00 EST, Height, 142.63, kg, 05/11/21 15:13:00 EDT, Dry... Start Date: 08/12/22 Status: Ordered gabapentin 800 mg oral tablet 1 tablet = 800 mg, By Mouth, 3 times a day, discontinue gabapentin 600mg, # 90 tablet, 11 Refills, Maintenance, 06/26/22 13:53:00 EDT, Tablet, [facility]/pharmacy #[id number], Partial fill upon patient request ifthe prescription is for a schedule II opioid drug.... Start Date: 06/26/22 Status: Ordered Metoprolol Succinate ER 25 mg oral tablet, extended release 0.5 tablet, By Mouth, 2 times a day, # 90 tablet, 3 Refills, Maintenance, 03/13/23 11:51:00 EDT, [facility]/pharmacy #[id number], 174.5, cm, 02/20/23 15:42:00 EDT, Height, 142.63, kg, 05/11/21 15:13:00 EDT, Dry Weight Start Date: 03/13/23 Status: Ordered Narcan 4 mg/0.1 mL nasal spray 1 spray, Naris, Left, Once, may repeat every 2 to 3 minutes until patient responds alternating nostril, # 2 each, 0 Refills, Soft Stop, 03/31/23 14:34:00 EDT, [facility]/pharmacy #[id number], Partial fill upon patient request if the prescription is for a schedule... Start Date: 03/31/23 Status: Ordered nortriptyline 50 mg oral capsule 50 mg, 1, capsule, By Mouth, Daily at bedtime, # 30 capsule, Refills 11, Tot. Refills 11, Maintenance, 08/12/22 12:46:00 EST, Route to Pharmacy Electronically, [facility]/pharmacy #[id number], 174.5, cm, 08/12/2211:28:00 EST, Height, 142.63, kg, 05/11/21 15:13:00... 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
--- OUTSIDE RECORDS SUMMARY | 2023-11-04 06:11 | XMS_ITS | Continuity of Care Document ---
Author Name Unknown Organization [facility] Address [address] [place] [address]- Care Team Providers Care Movie Star Name Role Phone Sarai MORGAN, Shane Primary Care Physician Encounter [facility] Date(s): 02/20/23 - 03/22/23 [facility]/[place] [address]- Attending Physician: Jun Calhoun Admitting Physician: AdmtrJun [...] 50 tablet, 11 Refills, Maintenance, 10/28/22 11:21:00 [facility], [facility]/pharmacy #[id number], Partial fill upon patient request if the prescription is for a... Start Date: 10/28/22 Status: Ordered aspirin 81 mg oral delayed release tablet 81 mg, 1, tablet, By Mouth, Daily, with food, # 100 tablet, Refills 3, Tot. Refills 3, Maintenance,08/12/22 12:46:00 EST, Route to Pharmacy Electronically, [facility]/pharmacy #[id number], 174.5, cm, 08/12/22 11:28:00 EST, Height, [...] 60 tablet, 11 Refills, Maintenance, 10/28/2310:11:00 EST, [facility]/pharmacy #[id number], Partial fill upon patient request if the prescription is for a schedule II opioid drug., 174.5, cm, 10/28/22 10:21:00... Start Date: 10/28/22 Status: Ordered Flomax 0.4 mg oral capsule 0.4 mg, 1, capsule, By Mouth, Daily, # 30 capsule, Refills 11, Tot. Refills 11, Maintenance, 08/12/22 12:46:00 EST, Route to Pharmacy Electronically, [facility]/pharmacy #[id number], 174.5, cm, 08/12/22 11:28:00 EST, Height, 142.63, kg, 05/11/21 15:13:00 EDT, Dry... Start Date: 08/12/22 Status: Ordered gabapentin 800 mg oral tablet 1 tablet = 800 mg, By Mouth, 3 times a day, discontinue gabapentin 600mg, # 90 tablet, 11 Refills, Maintenance, 06/26/22 13:53:00 EDT, Tablet, [facility]/pharmacy #[id number], Partial fill upon patient request ifthe prescription is for a schedule II opioid drug.... Start Date: 06/26/22 Status: Ordered Metoprolol Succinate ER 25 mg oral tablet, extended release 0.5 tablet, By Mouth, 2 times a day, # 90 tablet, 3 Refills, Maintenance, 03/13/23 11:51:00 EDT, [facility]/pharmacy #[id number], 174.5, cm, 02/20/23 15:42:00 EDT, Height, 142.63, kg, 05/11/21 15:13:00 EDT, Dry Weight Start Date: 03/13/23 Status: Ordered Metoprolol Succinate ER 25 mg oral tablet, extended release 0.5 tablet, By Mouth, 2 times a day, for 30 days, # 30 tablet, 0 Refills, Hard Stop 04/11/23 11:42:00 EDT, 03/12/23 11:42:00 EDT, [id number], 174.5, cm, 02/20/23 15:42:00 EDT, Height, 142.63, kg, 05/11/21 15:13:00 EDT, Dry Weight Start Date: 03/12/23 Stop Date: 04/11/23 Status: Ordered nortriptyline 50 mg oral capsule 50 mg, 1, capsule, By Mouth, Daily at bedtime, # 30 capsule, Refills 11, Tot. Refills 11, Maintenance, 08/12/22 12:46:00 EST, Route to Pharmacy Electronically, [facility]/pharmacy #[id number], 174.5, cm, 08/12/2211:28:00 EST, Height, 142.63, kg, 05/11/21 15:13:00... Start Date: 08/12/22 Status: Ordered oxybutynin 10 mg/24 hr oral tablet, extended release 1 tablet = 10 mg, By Mouth, Daily, Discontinue oxybutynin 5 mg, # 30 tablet, 11 Refills, Maintenance, 10/12/20 10:53:00 EST, ER Tablet, [facility]/pharmacy #[id number], 174.5, cm, 10/12/20 10:15:00 EST, Height Start Date: 10/12/20 Status: Ordered oxyCODONE 5 mg oral tablet 5 mg, 1, tablet, By Mouth, Every 4 hours, for 28 days, Chronic LBP M54.9 fill date 02/28/23, # 168 tablet, Refills 0, Tot. Refills 0, Acute 03/28/23 13:04:00 EDT, 02/28/23 13:04:00 EDT, Route to Pharmacy Electronically, [facility]/pharmacy #[id number], Partial... Start Date: 02/28/23 Stop Date: 03/28/23 Status: Ordered oxyCODONE 5 mg oral tablet 5 mg, 1, tablet, By Mouth, Every 4 hours, for 28 days, Chronic LBP M54.9 fill date 03/28/23, # 168 tablet, Refills 0, Tot. Refills 0, Acute 04/25/23 13:04:00 EDT, 03/28/23 13:04:00 EDT, Route to Pharmacy Electronically, [facility]/pharmacy #[id number], Partial... Start Date: 03/28/23 Stop Date: 04/25/23 Status: Ordered Right leg prothesis with liner Right leg prothesis with liner, See Instructions, # 1 each, Refills 0, Tot. Refills 0, Maintenance,Dx right below knee amputation Z89.511 ofgeot857.45 Kg akjnit235.5cm, 06/26/22 14:02:00 EDT, Compound Start Date: 06/26/22 [...] extremity below knee 4 Confirmed 1998 Active snf current use of opiate analgesic- chronic LBP, [...] Care Team Personnel Name: Shannon Noonan Position: [facility] Outreach Member Role: Lifetime Consulting Physician Name: Shane Moon MD Position: [facility] Physician - Primary Care Member Role: PCP Address: Address: [address] [place] [address]- Care Team Related Persons Name: CLAUDIA FLEMING Address: home [address] [place] [address] Name: KAY GUIDO Address: home [address] [place] [address]
--- OUTSIDE RECORDS SUMMARY | 2023-11-04 06:11 | XMS_ITS | Continuity of Care Document ---
Author Name Unknown Organization [facility] Address [address] [place] [address]- Care Team Providers Care Dials Inspector Name Role Phone Sarai MORGAN, Shane Primary Care Physician Encounter [facility] [place] Date(s): 09/25/20 - 10/25/20 [facility] [address] [address]- Allergies, Adverse Reactions, Alerts Substance Reaction Severity [...] EST, Route to Pharmacy Electronically, [facility]/pharmacy #[id number], 174.5, cm, 10/12/20 10:15:00 [...] EST, Route to Pharmacy Electronically, [facility]/pharmacy #[id number], 174.5, cm, 10/12/20 10:15:00 EST, Height Start Date: 10/12/20 Status: Ordered gabapentin 600 mg oral tablet 1 tablet = 600 mg, By Mouth, 3 times a day, Discontinue gabapentin 400 mg, # 90 tablet, 11 Refills,Maintenance, 10/12/20 10:50:00 EST, Tablet, [facility]/pharmacy #[id number], Partial fill upon patient request if the prescription is for a schedule II opioid drug.... Start Date: 10/12/20 Status: Ordered nortriptyline 25 mg oral capsule 25 mg, 1, capsule, By Mouth, Daily at bedtime, # 30 capsule, Refills 11, Tot. Refills 11, Maintenance, 10/12/20 10:52:00 EST, Route to Pharmacy Electronically, [facility]/pharmacy #[id number], 174.5, cm, 10/12/2109:15:00 EST, Height Start Date: 10/12/20 Status: Ordered oxybutynin 10 mg/24 hr oral tablet, extended release 1 tablet = 10 mg, By Mouth, Daily, Discontinue oxybutynin 5 mg, # 30 tablet, 11 Refills, Maintenance, 10/12/20 10:53:00 EST, ER Tablet, [facility]/pharmacy #[id number], 174.5, cm, 10/12/20 10:15:00 EST, Height Start Date: 10/12/20 Status: Ordered oxyCODONE 10 mg oral tablet 1 tablet = 10 mg, By Mouth, Every 4 hours, for 28 days, Do not exceed 5 tablets in 24 hours PRN pain Fill not earlier than 10/18/20, # 140 tablet, 0 Refills, Acute 11/15/20 14:10:00 EST, 10/18/20 14:10:00 EST, [facility]/pharmacy #[id number], partial fill upon r... Start Date: 10/18/20 Stop Date: 11/15/20 Status: Ordered oxyCODONE 10 mg oral tablet 1 tablet = 10 mg, By Mouth, Every 4 hours, for 28 days, Do not exceed 5 tablets in 24 hours PRN pain Fill not earlier than 11/15/20, # 140 tablet, 0 Refills, Acute 12/13/20 14:10:00 EDT, 11/15/20 14:10:00 EST, [facility]/pharmacy #[id number], partial fill upon r... Start [...]
--- OUTSIDE RECORDS SUMMARY | 2023-11-04 06:11 | XMS_ITS | Continuity of Care Document ---
Author Name Unknown Organization [facility] Address [address] [place] [address]- Care Team Providers Care Fabrication Supervisor Name Role Phone Sarai MORGAN, Shane Primary Care Physician Encounter [facility] Date(s): 04/29/23 - 05/29/23 [facility]/[address] [address]- [place] Allergies, Adverse Reactions, Alerts Substance Reaction [...] tablet, 11 Refills, Maintenance, 10/28/22 11:21:00 EST, [facility]/pharmacy #[id number], Partial fill upon patient request if the prescription is for a... Start Date: 10/28/22 Status: Ordered aspirin 81 mg oral delayed release tablet 81 mg, 1, tablet, By Mouth, Daily, with food, # 100 tablet, Refills 3, Tot. Refills 3, Maintenance,08/12/22 12:46:00 EST, Route to Pharmacy Electronically, [facility]/pharmacy #[id number], 174.5, cm, 08/12/22 [...] 60 tablet, 11 Refills, Maintenance, 10/28/2310:11:00 EST, [facility]/pharmacy #[id number], Partial fill upon patient request if the prescription is for a schedule II opioid drug., 174.5, cm, 10/28/22 10:21:00... Start Date: 10/28/22 Status: Ordered Flomax 0.4 mg oral capsule 0.4 mg, 1, capsule, By Mouth, Daily, # 30 capsule, Refills 11, Tot. Refills 11, Maintenance, 08/12/22 12:46:00 EST, Route to Pharmacy Electronically, [facility]/pharmacy #[id number], 174.5, cm, 08/12/22 11:28:00 EST, Height, 142.63, kg, 05/11/21 15:13:00 EDT, Dry... Start Date: 08/12/22 Status: Ordered gabapentin 800 mg oral tablet 1 tablet = 800 mg, By Mouth, 3 times a day, discontinue gabapentin 600mg, # 90 tablet, 11 Refills, Maintenance, 06/26/22 13:53:00 EDT, Tablet, [facility]/pharmacy #[id number], Partial fill upon patient request ifthe prescription is for a schedule II opioid drug.... Start Date: 06/26/22 Status: Ordered Metoprolol Succinate ER 25 mg oral tablet, extended release 0.5 tablet, By Mouth, 2 times a day, # 90 tablet, 3 Refills, Maintenance, 03/13/23 11:51:00 EDT, [facility]/pharmacy #[id number], 174.5, cm, 02/20/23 15:42:00 EDT, Height, 142.63, kg, 05/11/21 15:13:00 EDT, Dry Weight Start Date: 03/13/23 Status: Ordered Narcan 4 mg/0.1 mL nasal spray 1 spray, Naris, Left, Once, may repeat every 2 to 3 minutes until patient responds alternating nostril, # 2 each, 0 Refills, Soft Stop, 03/31/23 14:34:00 EDT, [facility]/pharmacy #[id number], Partial fill upon patient request if the prescription is for a schedule... Start Date: 03/31/23 Status: Ordered nortriptyline 50 mg oral capsule 50 mg, 1, capsule, By Mouth, Daily at bedtime, # 30 capsule, Refills 11, Tot. Refills 11, Maintenance, 08/12/22 12:46:00 EST, Route to Pharmacy Electronically, [facility]/pharmacy #[id number], 174.5, cm, 08/12/2211:28:00 EST, Height, 142.63, kg, 05/11/21 15:13:00... 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
--- OUTSIDE RECORDS SUMMARY | 2023-11-04 06:11 | XMS_ITS | Continuity of Care Document ---
Author Name Unknown Organization [facility] Address Unknown Care Team Providers Care Farrowing Manager Name Role Phone Sarai MORGAN, Shane Primary Care Physician Encounter [facility] Date(s): 07/31/21 - 09/13/21 [facility] Attending Physician: Corey Hunt MD Admitting [...] Maintenance,10/12/20 10:52:00 EST, Route to Pharmacy Electronically, [facility]/pharmacy #[id number], 174.5, cm, 10/12/20 10:15:00 EST, Height [...] 5 Refills, Maintenance, 03/06/21 13:31:00 EDT, Aerosol, [facility]/pharmacy #[id number], Partial fill upon patient request if the prescription is for a schedule II opioid drug., 1 puffs... Start Date: 03/06/21 Status: Ordered Flomax 0.4 mg oral capsule 0.4 mg, 1, capsule, By Mouth, Daily, # 30 capsule, Refills 5, Tot. Refills 5, Maintenance, :59:00 EDT, Route to Pharmacy Electronically, [facility] #[id number], 174.5, cm, 02/01/21 10:52:00 EDT, Height Start Date: 02/05/21 Status: Ordered gabapentin 600 mg oral tablet 1 tablet = 600 mg, By Mouth, 2 times a day, Dose change, # 60 tablet, 11 Refills, Maintenance, 08/09/21 12:40:00 EST, Tablet, [facility]/pharmacy #[id number], Partial fill upon patient request if the prescriptionis for a schedule II opioid drug., 174.5, cm, 08/09... Start Date: 08/09/21 Status: Ordered nortriptyline 50 mg oral capsule 50 mg, 1, capsule, By Mouth, Daily at bedtime, Discontinue nortriptyline 25 mg, # 30 capsule, Refills 11, Tot. Refills 11, Maintenance, 08/09/21 12:41:00 EST, Route to Pharmacy Electronically, [facility]/pharmacy #[id number], Partial fill upon patient request if [...] 4 1998 Active Glucose intolerance (pre-diabetes)(Confirmed) Active [facility] [...]
--- OUTSIDE RECORDS SUMMARY | 2023-11-04 06:11 | XMS_ITS | Continuity of Care Document ---
Author Name Unknown Organization [facility] Address Unknown Care Team Providers Care Platform Man Name Role Phone Sarai MORGAN, Shane Primary Care Physician Encounter [facility] [place] [place] Date(s): 05/11/21 - 06/17/21 [facility] Attending Physician: Not on Staff, Attending MD Allergies, Adverse Reactions, Alerts Substance Reaction [...] Maintenance,10/12/20 10:52:00 EST, Route to Pharmacy Electronically, [facility]/pharmacy #[id number], 174.5, cm, 10/12/20 [...] 5 Refills, Maintenance, 03/06/21 13:31:00 EDT, Aerosol, [facility]/pharmacy #[id number], Partial fill upon patient request if the prescription is for a schedule II opioid drug., 1 puffs... Start Date: 03/06/21 Status: Ordered Flomax 0.4 mg oral capsule 0.4 mg, 1, capsule, By Mouth, Daily, # 30 capsule, Refills 5, Tot. Refills 5, Maintenance, :59:00 EDT, Route to Pharmacy Electronically, [facility] #[id number], 174.5, cm, 02/01/21 10:52:00 EDT, Height Start Date: 02/05/21 Status: Ordered gabapentin 600 mg oral tablet 1 tablet = 600 mg, By Mouth, 3 times a day, Discontinue gabapentin 400 mg, # 90 tablet, 11 Refills,Maintenance, 10/12/20 10:50:00 EST, Tablet, [facility]/pharmacy #[id number], Partial fill upon patient request if the prescription is for a schedule II opioid drug.... Start Date: 10/12/20 Status: Ordered nortriptyline 25 mg oral capsule 25 mg, 1, capsule, By Mouth, Daily at bedtime, # 30 capsule, Refills 11, Tot. Refills 11, Maintenance, 10/12/20 10:52:00 EST, Route to Pharmacy Electronically, [facility]/pharmacy #[id number], 174.5, cm, 10/12/2109:15:00 [...] mg sublingual film 1.5 film, Sublingual, Daily, [id number] Scavron dissolve under the tongue Due 06/19/2021, # 11 film, 0 Refills, Maintenance, 06/12/21 12:42:00 EDT, Film, [facility], Partial fill upon patient request if the prescription is for a sc... Start Date: 06/12/21 Stop Date: 06/19/21 Status: Ordered Topamax 25 mg oral tablet 1 tablet = 25 mg, By Mouth, 2 times a day, for the first week use only at bedtime To be use with 50mg tablet, # 60 tablet, 5 Refills, Maintenance, Headaches, 03/05/21 15:49:00 EDT, [id number], Partial fill upon patient reques... 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
--- OUTSIDE RECORDS SUMMARY | 2023-11-04 06:11 | XMS_ITS | Continuity of Care Document ---
Author Name Unknown Organization [facility] Address Unknown Care Team Providers Care High School Social Studies Tutor Name Role Phone Sarai MORGAN, Shane Primary Care Physician Encounter [facility] Date(s): 05/10/21 - 06/09/21 [facility] Allergies, Adverse Reactions, Alerts Substance Reaction Severity Status morphine swelling Active predniSONE Chill Agitation Diaphoresis Persistent Severe Active Immunizations Given and Recorded Vaccine Date Status Refusal Reason influenza virus vaccine, inactivated 10/12/20 Ulisses rded influenza virus vaccine, inactivated 10/18/19 Give n influenza virus vaccine, inactivated 1 07/09/18 Gi jsoe influenza virus vaccine, inactivated 07/09/18 Give n [...] Maintenance,10/12/20 10:52:00 EST, Route to Pharmacy Electronically, [facility]/pharmacy #[id number], 174.5, cm, 10/12/20 10:15:00 EST, Height Start Date: 10/12/20 Status: Ordered bifidobacterium-lactobacillus oral tablet 1 tablet, By Mouth, Daily, for 30 days, # 30 tablet, 0 Refills, Acute 06/17/21 17:10:00 EDT, 05/18/21 17:10:00 EDT, Tablet, [facility]/pharmacy #[id number], 50 billions CFU, 1 tablet [...] 05/18/21 17:10:00 EDT, Route to Pharmacy Electronically, [facility]/pharmacy #[id number], Partial fill upo... Start Date: 05/18/21 Stop Date: 06/17/21 Status: Ordered Combivent Respimat 20 mcg-100 mcg/inh inhalation aerosol 1 puffs, Inhalation, 4 times a day, PRN Wheezing/Shortness of Breath, # 4 Gm, 5 Refills, Maintenance, 03/06/21 13:31:00 EDT, Aerosol, [facility]/pharmacy #[id number], Partial fill upon patient request if the prescription is for a schedule II opioid drug., 1 puffs... Start Date: 03/06/21 Status: Ordered Flomax 0.4 mg oral capsule 0.4 mg, 1, capsule, By Mouth, Daily, # 30 capsule, Refills 5, Tot. Refills 5, Maintenance, 218:59:00 EDT, Route to Pharmacy Electronically, [facility] #[id number], 174.5, cm, 02/01/21 10:52:00 EDT, Height Start Date: 02/05/21 Status: Ordered gabapentin 600 mg oral tablet 1 tablet = 600 mg, By Mouth, 3 times a day, Discontinue gabapentin 400 mg, # 90 tablet, 11 Refills,Maintenance, 10/12/20 10:50:00 EST, Tablet, [facility]/pharmacy #[id number], Partial fill upon patient request if the prescription is for a schedule II opioid drug.... Start Date: 10/12/20 Status: Ordered nortriptyline 25 mg oral capsule 25 mg, 1, capsule, By Mouth, Daily at bedtime, # 30 capsule, Refills 11, Tot. Refills 11, Maintenance, 10/12/20 10:52:00 EST, [id number], 174.5, cm, 10/12/2109:15:00 EST, Height Start Date: 10/12/20 Status: Ordered oxybutynin 10 mg/24 hr oral tablet, extended release 1 tablet = 10 mg, By Mouth, Daily, Discontinue oxybutynin 5 mg, # 30 tablet, 11 Refills, Maintenance, 10/12/20 10:53:00 EST, ER Tablet, [id number], 174.5, cm, 10/12/20 10:15:00 EST, Height Start Date: 10/12/20 Status: Ordered Replacement prosthetic liner Replacement prosthetic liner, See Instructions, # 2 each, Refills 0, Tot. Refills 0, Maintenance, Dx right below knee amputation Z89.511 wt 297 pounds, 10/18/19 11:59:00 EST, Compound Start Date: 10/18/19 Status: Ordered Suboxone 8 mg-2 mg sublingual film 1.5 film, Sublingual, Daily, [id number] Scavron dissolve under the tongue Due 06/12/2021, # 11 film, 0 Refills, Maintenance, 06/05/21 12:19:00 EDT, Film, [facility], Partial fill upon patient request if the prescription is for a sc... Start Date: 06/05/21 Stop Date: 06/12/21 Status: Ordered Topamax 25 mg oral tablet 1 tablet = 25 mg, By Mouth, 2 times a day, for the first week use only at bedtime To be use with 50mg tablet, # 60 tablet, 5 Refills, Maintenance, Headaches, 03/05/21 15:49:00 EDT, [facility] #[id number], Partial fill upon patient reques... Start Date: [...] 1998 Active Glucose intolerance (pre-diabetes)(Confirmed) Active intermediate current use of opi ate analgesic- [...]
--- OUTSIDE RECORDS SUMMARY | 2023-11-04 06:11 | XMS_ITS | Continuity of Care Document ---
Author Name Unknown Organization [facility] Address Unknown Care Team Providers Care Headline Writer Name Role Phone Sarai MORGAN, Shane Primary Care Physician [place] [facility] [place] 11/23/21 [facility] Allergies, Adverse Reactions, Alerts Substance Reaction Severity [...] Maintenance,10/12/20 10:52:00 EST, Route to Pharmacy Electronically, [facility]/pharmacy #[id number], 174.5, cm, 10/12/20 10:15:00 [...] 5 Refills, Maintenance, 03/06/21 13:31:00 EDT, Aerosol, [facility]/pharmacy #[id number], Partial fill upon patient request if the prescription is for a schedule II opioid drug., 1 puffs... Start Date: 03/06/21 Status: Ordered Flomax 0.4 mg oral capsule 0.4 mg, 1, capsule, By Mouth, Daily, # 30 capsule, Refills 5, Tot. Refills 5, Maintenance, 218:59:00 EDT, Route to Pharmacy Electronically, [facility] #[id number], 174.5, cm, 02/01/21 10:52:00 EDT, Height Start Date: 02/05/21 Status: Ordered gabapentin 300 mg oral capsule 300 mg, 1, capsule, By Mouth, Daily, Use at noon time Continue gabapentin 600 mg capsules twice daily, # 30 capsule, Refills 11, Tot. Refills 11, Maintenance, 11/16/21 13:54:00 EST, Route to PharmacyElectronically, [facility]/pharmacy #[id number], Partial fill... Start Date: 11/16/21 Status: Ordered gabapentin 600 mg oral tablet 1 tablet = 600 mg, By Mouth, 2 times a day, Dose change, # 60 tablet, 11 Refills, Maintenance, 08/09/21 12:40:00 EST, Tablet, [facility]/pharmacy #[id number], Partial fill upon patient request if the prescriptionis for a schedule II opioid drug., 174.5, cm, 08/09... Start Date: 08/09/21 Status: Ordered nortriptyline 50 mg oral capsule 50 mg, 1, capsule, By Mouth, Daily at bedtime, Discontinue nortriptyline 25 mg, # 30 capsule, Refills 11, Tot. Refills 11, Maintenance, 08/09/21 12:41:00 EST, Route to Pharmacy Electronically, [facility]/pharmacy #[id number], Partial fill upon patient request if t... Start Date: 08/09/21 Status: Ordered oxybutynin 10 mg/24 hr oral tablet, extended release 1 tablet = 10 mg, By Mouth, Daily, Discontinue oxybutynin 5 mg, # 30 tablet, 11 Refills, Maintenance, 10/12/20 10:53:00 EST, ER Tablet, [facility]/pharmacy #[id number], 174.5, cm, 10/12/20 10:15:00 [...]
--- OUTSIDE RECORDS SUMMARY | 2023-11-04 06:11 | XMS_ITS | Continuity of Care Document ---
Author Name Unknown Organization [facility] Address [address] [place] [id number]- Care Team Providers Care Crystal Grower Name Role Phone Sarai MORGAN, Shane Primary Care Physician Encounter [facility] [place] Date(s): 08/02/20 - 09/13/[address] [address] Attending Physician: Shane Moon MD [...] Maintenance,06/28/20 19:12:00 EDT, Route to Pharmacy Electronically, [facility]/pharmacy #[id number], 174.5, cm, 10/18/19 11:26:00 [...] 06/28/20 19:12:00 EDT, Route to Pharmacy Electronically, [facility]/pharmacy #[id number], 174.5, cm, 10/18/19 11:26:00 EST, Height Start Date: 06/28/20 Status: Ordered gabapentin 400 mg oral capsule 400 mg, 1, capsule, By Mouth, 3 times a day, # 90 capsule, Refills 11, Tot. Refills 11, Maintenance, 06/28/20 19:12:00 EDT, Route to Pharmacy Electronically, [facility]/pharmacy #[id number], 174.5, cm, 10/18/19 11:26:00 EST, Height Start Date: 06/28/20 Status: Ordered nortriptyline 25 mg oral capsule 25 mg, 1, capsule, By Mouth, Daily at bedtime, # 30 capsule, Refills 11, Tot. Refills 11, Maintenance, 06/28/20 19:13:00 EDT, Route to Pharmacy Electronically, [facility]/pharmacy #[id number], 174.5, cm, 10/18/2010:26:00 EST, Height Start Date: 06/28/20 Status: Ordered oxybutynin 5 mg oral tablet 1-2 tablet, By Mouth, 2 times a day, # 90 tablet, 11 Refills, Maintenance, 06/28/20 19:12:00 EDT, [facility]/pharmacy #[id number], 174.5, cm, 10/18/19 11:26:00 [...] Acute 09/20/20 14:08:00 EST, 08/23/20 14:08:00 EST, [facility]/pharmacy #[id number], partial araceli... Start Date: 08/23/20 Stop Date: 09/20/20 Status: Ordered oxyCODONE 10 mg oral tablet 1 tablet = 10 mg, By Mouth, Every 4 hours, for 28 days, Do not exceed 5 tablets in 24 hours PRN pain Fill not earlier than 09/20/20 4 of 4, # 140 tablet, 0 Refills, Acute 10/18/20 14:10:00 EST, 09/20/20 14:10:00 EST, [facility]/pharmacy #[id number], partial fi... 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
--- OUTSIDE RECORDS SUMMARY | 2023-11-04 06:11 | XMS_ITS | Continuity of Care Document ---
Author Name Unknown Organization [facility] Address [address] [place] [address]- Care Team Providers Care Neurodiagnostic Technologist Name Role Phone Shane Moon MD Primary Care Physician [place] [facility] [place]): 01/06/20 - 01/13/20 [facility]/[address] [address]- [facility] Attending Physician: Shane Moon MD Admitting [...] Maintenance,10/11/19 8:52:00 EST, Route to Pharmacy Electronically, [facility] #[id number], 174.5, cm, 08/31/19 11:34:00 EST, Height Start [...] 12/06/19 14:35:00 EDT, Route to Pharmacy Electronically, [facility] #[id number], 174.5, cm, 10/18/19 11:26:00 EST, Height Start Date: 12/06/19 Status: Ordered gabapentin 400 mg oral capsule 400 mg, 1, capsule, By Mouth, 3 times a day, discontinue gabapentin 800mg, # 90 capsule, Refills 11, Tot. Refills 11, Maintenance, 12/06/19 14:34:00 EDT, Route to Pharmacy Electronically, [facility] #[id number], 174.5, cm, 10/18/19 11:26:00 EST,... Start Date: 12/06/19 Status: Ordered nortriptyline 25 mg oral capsule 25 mg, 1, capsule, By Mouth, Daily at bedtime, # 30 capsule, Refills 11, Tot. Refills 11, Maintenance, 09/08/19 8:50:00 EST, Route to Pharmacy Electronically, [facility] #[id number], 174.5, cm, 08/31/19 11:34:00 EST, Height Start Date: 09/08/19 Status: Ordered oxybutynin 5 mg oral tablet 1-2 tablet, By Mouth, 2 times a day, # 90 tablet, 11 Refills, Maintenance, 09/16/19 9:09:00 EST, [facility] #[id number], 174.5, cm, 08/31/19 11:34:00 EST, Height Start Date: 09/16/19 Stop Date: 09/10/20 Status: Ordered oxyCODONE 10 mg oral tablet 1 tablet = 10 mg, By Mouth, Every 4 hours, for 28 days, to be dispensed not earlier than 01/10/20 Donot exceed 5 tablets in 24 hours PRN pain, # 140 tablet, 0 Refills, Acute 02/07/20 12:25:00 EDT, 01/10/20 12:25:00 EDT, [facility] #[id number]... Start Date: 01/10/20 Stop Date: 02/07/20 Status: [...] Gm, 1 Refills, Maintenance, 01/06/20 10:02:00 EDT, [facility] #[id number], 1 applicator Topically 2 times a day, [...]
--- OUTSIDE RECORDS SUMMARY | 2023-11-04 06:11 | XMS_ITS | Continuity of Care Document ---
Author Name Unknown Organization [facility] Address [address] [place] [address]- Care Team Providers Care Chemical Mixer Name Role Phone Sarai MORGAN, Shane Primary Care Physician Encounter [facility] Date(s): 02/06/23 - 03/08/23 [facility] [address]- [place] Allergies, Adverse Reactions, Alerts Substance Reaction [...] tablet, 11 Refills, Maintenance, 10/28/22 11:21:00 EST, [facility]/pharmacy #[id number], Partial fill upon patient request if the prescription is for a... Start Date: 10/28/22 Status: Ordered aspirin 81 mg oral delayed release tablet 81 mg, 1, tablet, By Mouth, Daily, with food, # 100 tablet, Refills 3, Tot. Refills 3, Maintenance,08/12/22 12:46:00 EST, Route to Pharmacy Electronically, [facility]/pharmacy #[id number], 174.5, cm, 08/12/22 11:28:00 [...] 60 tablet, 11 Refills, Maintenance, 10/28/2310:11:00 EST, [facility]/pharmacy #[id number], Partial fill upon patient request if the prescription is for a schedule II opioid drug., 174.5, cm, 10/28/22 10:21:00... Start Date: 10/28/22 Status: Ordered Flomax 0.4 mg oral capsule 0.4 mg, 1, capsule, By Mouth, Daily, # 30 capsule, Refills 11, Tot. Refills 11, Maintenance, 08/12/22 12:46:00 EST, Route to Pharmacy Electronically, [facility]/pharmacy #[id number], 174.5, cm, 08/12/22 11:28:00 EST, Height, 142.63, kg, 05/11/21 15:13:00 EDT, Dry... Start Date: 08/12/22 Status: Ordered gabapentin 800 mg oral tablet 1 tablet = 800 mg, By Mouth, 3 times a day, discontinue gabapentin 600mg, # 90 tablet, 11 Refills, Maintenance, 06/26/22 13:53:00 EDT, Tablet, [facility]/pharmacy #[id number], Partial fill upon patient request ifthe prescription is for a schedule II opioid drug.... Start Date: 06/26/22 Status: Ordered metoprolol 25 mg oral tablet, extended release 12.5 mg, 0.5, tablet, By Mouth, 2 times a day, # 30 tablet, Refills 0, Tot. Refills 0, Maintenance,02/07/23 11:56:00 EDT, Route to Pharmacy Electronically, [facility]/pharmacy #[id number], 174.5, cm, 02/07/23 11:39:00 EDT, Height, 142.63, kg, 05/11/21 15:13:00 ED... Start Date: 02/07/23 Stop Date: 03/09/23 Status: Ordered nortriptyline 50 mg oral capsule 50 mg, 1, capsule, By Mouth, Daily at bedtime, # 30 capsule, Refills 11, Tot. Refills 11, Maintenance, 08/12/22 12:46:00 EST, Route to Pharmacy Electronically, [facility]/pharmacy #[id number], 174.5, cm, 08/12/2211:28:00 EST, Height, 142.63, kg, 05/11/21 15:13:00... Start Date: 08/12/22 Status: Ordered oxybutynin 10 mg/24 hr oral tablet, extended release 1 tablet = 10 mg, By Mouth, Daily, Discontinue oxybutynin 5 mg, # 30 tablet, 11 Refills, Maintenance, 10/12/20 10:53:00 EST, ER Tablet, [facility]/pharmacy #[id number], 174.5, cm, 10/12/20 10:15:00 EST, Height Start Date: 10/12/20 Status: Ordered oxyCODONE 5 mg oral tablet 5 mg, 1, tablet, By Mouth, Every 4 hours, for 28 days, Chronic LBP M54.9 fill date 02/28/23, # 168 tablet, Refills 0, Tot. Refills 0, Acute 03/28/23 13:04:00 EDT, 02/28/23 13:04:00 EDT, Route to Pharmacy Electronically, [facility]/pharmacy #[id number], Partial... Start Date: 02/28/23 Stop Date: 03/28/23 Status: Ordered oxyCODONE 5 mg oral tablet 5 mg, 1, tablet, By Mouth, Every 4 hours, for 28 days, Chronic LBP M54.9 fill date 03/28/23, # 168 tablet, Refills 0, Tot. Refills 0, Acute 04/25/23 13:04:00 EDT, 03/28/23 13:04:00 EDT, Route to Pharmacy Electronically, [facility]/pharmacy #[id number], Partial... Start Date: 03/28/23 Stop Date: 04/25/23 Status: Ordered Right leg prothesis with liner Right leg prothesis with liner, See Instructions, # 1 each, Refills 0, Tot. Refills 0, Maintenance,Dx right below knee amputation Z89.511 ifmoox807.45 Kg dxagqu930.5cm, 06/26/22 14:02:00 EDT, Compound Start Date: 06/26/22 Status: Ordered Topamax 100 mg oral tablet 1 tablet = 100 mg, By Mouth, 2 times a day, Discontinue topiramate to 50 mg, # 60 tablet, 11 Refills, Maintenance, 10/28/22 11:07:00 EST, Tablet, [facility]/pharmacy #[id number], Partial fill upon patient requestif the prescription is for a schedule II opioid yaw... 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
[2023-11-04] MEDS: Lactated Ringers 1,000 ML 100 ML IVCONT ×4 (06:34→22:54)
[2023-11-04] MEDS: Lactated Ringers 1,000 ML 999 ML IV (06:35)
[2023-11-04] MEDS: Aprepitant 32 MG/4.4 ML VIAL IVPUSH (06:51)
[2023-11-04] MEDS: Albuterol Sulfate (0.083%) 2.5 MG/3 ML VIAL.NEB INHALE (07:15)
--- NOTE | 2023-11-04 07:49 | MHC.SHP ---
Pre-Procedural Eval Section A - 24 Hr Update-Section A only Date of Service: 11/04/23 The patient is an INPATIENT: Yes The patient has been examined within 24 hours of the surgical procedure. The History & Physical has been completed within 30 days and I have reviewed it.: Yes Section B - Complete if H&P > 30 days Chief Complaint: Morbid Obesity Relevant Family History (Specify if Yes): No Relevant Social History: None Present Medications: None Medical History: No relevant PMH History of Previous Operations: No relevant previous surgery Allergies: Allergies Allergy/AdvReac Type Severity Reaction Status Date / Time Opioids - Morphine Analogues Allergy Mild Swelling Verified 11/04/23 06:43 Review of Systems Sugical H&P ROS: Negative: Constitution, Cardiovascular, Respiratory, Neurological, Psychiatric, Hem-Onc, Allergic/Immunologic, Gastrointestinal, Genitourinary, Musculoskeletal, Integumentary, Endocrine and Eyes/Ears/Nose/Throat Exam Surgical H&P Exam: Normal: HEENT, Normal: Heart, Normal: Lungs, Normal: Extremities, Normal: Abdomen, Normal: Skin and Normal: Neurological Plan Diagnosis/Plan: Unchanged I have reviewed the history and physical and performed a pertinent physical examination on my patient. No changes have occurred unless specified. Time Spent With Patient Time: Total time managing care of this patient today ____ minutes.
--- NOTE | 2023-11-04 07:52 | PC.NURSE ---
surgeon, anesthesiologist and surgical team discussed with patient positioning in OR. Decision was made for patient to wear right below the knee prosthetic leg into OR.
--- NOTE | 2023-11-04 07:54 | PC.NURSE ---
dr. tran aware that patient has dewey and that lungs are diminished throughout. 95% ra. respiratory treatment given as ordered.
--- NOTE | 2023-11-04 07:56 | PM.OP ---
Brief Operative Note Date of Service: 11/04/23 Pre-op diagnosis: Morbid obesity with comorbidities (see below) Post-op diagnosis: same Procedure: INITIAL PATIENT BMI ON PRESENTATION AT OUR OFFICE: 48.2 kg/m2 LAST BMI BEFORE SURGERY: 44.1 kg/m2 COMORBIDITIES: sleep apnea on CPAP, RLE amputee, depression, anxiety, back pain, GERD, liver steatosis, liver fibrosis ?The patient presented to the Weight Management Program with significant obesity that was negatively impacting the patient's comorbidities as listed above.? The program is a phased program with a special focus on preoperative medical weight management to promote substantial weight loss and prepare the patients for the second phase of the program: bariatric surgery. The patient participated in an intensive weekly lifestyle ?intervention and exercise program during which the patient ?has lost between the initial office visit and the last preoperative visit 32.4 lbs, or 9.91% of initial actual body weight. It was deemed appropriate for the patient to now have bariatric surgery. In light of the current Covid-19 pandemic and the well documented strong association of obesity and increased risk of worse outcomes if infected with Covid-19 (REFERENCES:https://pubmed.ncbi.nlm.nih.gov/07690261/,?https://pubmed.ncbi.nlm.nih.gov/80587282/), any delay in undergoing bariatric surgery may lead to the patient's worsening health condition and increased?risk of more severe Covid-19 disease if infected. In addition a recent?study from [facility] published in [employer] on 09/17/2021 ([email or web address]/C:/[email or web address]) found that, among patients with obesity, substantial weight loss achieved with surgery was associated with improved outcomes of COVID-19 infection. The findings suggest that obesity can be a modifiable risk factor for the severity of COVID-19 infection. In addition, the patient met the BMI-criteria for bariatric surgery based on the BMI on initial presentation. The patient should not be penalized for achieving such weight loss because ?it is not sustainable long-term without surgical intervention and it was achieved in preparation for bariatric surgery ?under my direction and based on my published research ([email or web address]:/[email or web address]).pdf and?https://www.soard.org/article/[email or web address](31)32514-X/pdf) ?that a 10% preoperative weight loss improves long-term weight loss after surgery and reduces perioperative complications.? Insurance carriers such as [facility] have endorsed my recommendations ?and have included in their policies criteria to include a 10% preoperative weight loss requirement. PROCEDURE: Esophago-gastroscopy, laparoscopic sleeve gastrectomy and laparoscopic gastropexy INDICATIONS: This is a 48 year-old male who was electively scheduled for laparoscopic, possibly open sleeve gastrectomy. The risks and complications of the procedure were discussed with the patient in advance, particularly the possibility of ; pulmonary embolism; staple line leak; bleeding; GERD; cardiac, pulmonary, or renal complications; as well as long-term problems such as insufficient weight loss, vitamin deficiency, strictures, or ulcers. The patient understood all the risks, and was in agreement to proceed with surgery. DESCRIPTION OF PROCEDURE: After informed consent was obtained from the patient, the patient was given preoperative antibiotics, and was transferred to the operating room. After successful induction of general anesthesia, pneumatic compression devices were placed on both lower extremities. An upper endoscopy was performed next. The oropharynx and esophagus appeared to be within normal limits. There was no diaphragmatic hernia present consistent with the findings of the preoperative upper GI. The stomach was entered. Then after all fluid and air were suctioned and the stomach was fully decompressed, the scope was withdrawn and secured in the mid esophagus. The patient was then prepped and draped in the usual sterile manner, and abdominal access was established at the right upper quadrant with the Mary technique. A 12 mm blunt port was inserted, and the abdomen was insufflated with CO2 to a pressure of 15 mmHg. Under direct visualization, additional ports were placed, specifically two 5 mm Versi-step ports to the left upper quadrant, and a 5 mm Versi-Step port to the right upper quadrant. 1% lidocaine plain was used to infiltrate all port sites as well as all fascia defects. Using the EndoClose suture passer device, I placed a #1 Polysorb tie across the falciform ligament in order to retract it up against the abdominal wall and prevent injury of the ligament with our instruments during the procedure. Following that, the patient was placed in a steep reverse Trendelenburg position. An additional 5 mm port was placed to the right flank for the Mediflex retractor that was used to retract the left lobe of the liver. The gastro-esophageal fat pad was opened with the ultrasonic device (Thunderbeat, Olympus) and the anterior esophagus and hiatus were exposed. The angle of His was opened with the ultrasonic device the fundus of the stomach from any diaphragmatic and splenic attachments. I then opened the gastrocolic ligament between the transverse colon and the greater curvature of the stomach with the ultrasonic device to enter the lesser sac and facilitate the ligation of the short gastric vessels. I started at a mid-point along the greater curvature and using the Thunderbeat, all short gastric vessels were divided all the way to the angle of His until the left jose r was completely dissected at its entirety. I then divided the gastro-colic ligament distally to a distance of about 3-4 cm proximal to the pylorus. The stomach was then divided transversely with two Endo CHARLIE-45 purple and four CHARLIE-60 articulating purple loads using the SIGNIA stapler and loads. Every effort was made that the gastric sleeve had a tubular shape and an even caliber throughout. Once the sleeve resection was completed, the staple line of the gastric sleeve was reinforced with Hemoclips. The resected stomach was retrieved without difficulty from the Mary port. A gastropexy was then performed in order to prevent postoperative GERD and partial gastric volvulus. Several interrupted 2.0 Surgidac sutures were placed between the sleeve's staple line and the previously divided greater omentum and gastro-colic ligament using the Endo-Stitch device. ?An upper endoscopy was performed. There was no narrowing at the GE junction. The scope was easily advanced all the way to the pylorus which was clearly visualized. There was no narrowing anywhere and the sleeve's caliber was even throughout. The sleeve's staple line was inspected and there was no evidence of ischemia, bleeding or dehiscence. At that point the gastroscope was withdrawn from the patient?s mouth while we were decompressing the bowel and the stomach from any remaining air. I looked into the lesser sac to see how the sleeve was situating and it was situating well. There was no bleeding from the staple line, spleen, or short gastric vessels. The Mediflex retractor was removed, and the undersurface of the liver was inspected and there was no bleeding. The patient was placed in supine position. I closed the fascial defect of the 12 mm port site with a figure of eight #1 Polysorb suture. Then 30cc Ropivacaine plain with 10 mg of Dexamethasone were used to infiltrate the fascial closure as well as all skin incisions. At this point, the abdomen was deflated, all ports were removed under direct vision, and no bleeding was noted from any of the port sites. The skin incisions were irrigated with saline and were closed with 4-0 absorbable monofilament sutures. Steri-Strips and OpSites were used to cover all incisions. The patient was extubated and was transferred in stable condition to the recovery room for further care. I was present and performed all ordonez parts of the procedure. Rigoberto was the undertaker assistant. There were no residents to assist with this case. Marshall Sparrow MD, PhD, FACS Surgeon: Randy Sparrow MD Anesthesia: GETA, local and other (TAP block) Was an Level Vial Inspector And Tester used for this Procedure?: No Level Vial Inspector And Tester: Jennifer Franklin Estimated blood loss (mL): 10 IV fluids (mL): 2,000 Urine output (mL): 0 (No Linder to record output) Pathology: other (Stomach) Condition: stable Disposition: PACU
--- NOTE | 2023-11-04 07:59 | P.PNGS_ITS ---
Subjective Subjective Date of Service: 11/05/23 Interval history: Feels well. Mild incisional pain. He is tolerating phase 1 bariatric diet Physical Exam 2 Vital Signs: Vital Signs: Last Vital Signs Temp 97.9 F 11/04/23 06:32 Pulse 70 11/04/23 07:16 Resp 16 11/04/23 07:16 BP 149/101 H 11/04/23 06:32 Pulse Ox 95 11/04/23 06:32 O2 Del Method Room Air 11/04/23 06:32 BMI result Body Mass Index 44.3 GI: Inspection: Yes normal to inspection, Yes incision (clean, dry and intact) and Yes obesity Palpation (GI): Soft to palpation Extrem: Right lower extremity: normal to inspection (no calf tenderness) L eft lower extremity: normal to inspection (no calf tenderness) Objective Data Active Medications Albuterol Sulfate (Albuterol Sulfate (0.083%) 2.5 Mg/3 Ml Vial.Neb) 2.5 mg INHALE ONCE PRN PRN Reason: Shortness of Breath/Wheezing Last Admin: 11/04/23 07:15 Dose: 2.5 mg Documented By: COOKIE Lactated Ringer's (Lr) 1,000 mls @ 100 mls/hr IVCONT .Q10H [facility] Last Admin: 11/04/23 06:34 Dose: 100 mls/hr Documented By: GADIEL Lactated Ringer's (Lr) 1,000 mls @ 999 mls/hr IV .Q1H1M [facility] Stop: 11/04/23 08:15 Last Admin: 11/04/23 06:35 Dose: 999 mls/hr Documented By: GADIEL Labs 11/05/23 04:56 11/05/23 04:56 Procedures Date of Service Date of Service: 11/05/23 Progress Note: A&P Assessment and plan (1) Morbid obesity: Status: Acute Assessment and Plan: s/p laparoscopic sleeve gastrectomy and gastropexy Doing well Will check am labs and if OK the patient will be discharged home (2) VIVIENNE (obstructive sleep apnea): Status: Acute (3) HTN (hypertension): Status: Acute (4) Back pain: Status: Acute (5) Depression: Status: Acute (6) Anxiety: Status: Acute (7) Steatosis, liver: Status: Acute (8) Liver fibrosis: Status: Acute (9) GERD (gastroesophageal reflux disease): Status: Acute (10) S/P laparoscopic sleeve gastrectomy: Status: Acute Time Spent With Patient Time: Total time managing care of this patient today ____ minutes. Quality Stroke Does the patient have a stroke diagnosis?: No VTE Prior VTE?: No VTE Risk Level:: Surgical - moderate VTE Device Contraindication: N/A - Device Ordered VTE Drug Contraindication: Treatment Not Indicated
--- NOTE | 2023-11-04 10:22 | P.DS_ITS ---
DS: Providers Provider Date of Service: 11/05/23 Date of admission: 11/04/23 06:06 Primary care physician: Shane Hyde MD DS: Diagnosis Discharge Diagnosis (1) Morbid obesity: Status: Acute (2) VIVIENNE (obstructive sleep apnea): Status: Acute (3) HTN (hypertension): Status: Acute (4) Back pain: Status: Acute (5) Depression: Status: Acute (6) Anxiety: Status: Acute (7) Steatosis, liver: Status: Acute (8) Liver fibrosis: Status: Acute (9) GERD (gastroesophageal reflux disease): Status: Acute DS: Summary Hospital Course Hospital Course: ADMITTING DIAGNOSIS: morbid obesity, VIVIENNE, HTN, anxiety and depression DISCHARGE DIAGNOSIS: same, s/p laparoscopic sleeve gastrectomy PAST SURGICAL HISTORY: Right BKA PROCEDURE: upper endoscopy, laparoscopic sleeve gastrectomy DISCHARGE SUMMARY: History of Present Illness: The patient is a 48 year-old woman with a BMI of 48.2 kg/m2 and associated co- morbidities as described above. The patient had extensive work-up, lost 28 lbs preoperatively and was electively scheduled for laparoscopic, possible open sleeve gastrectomy and gastropexy. Risks and complications of the surgery were discussed with the patient in advance, particularly the possibility of , pulmonary embolism, anastomotic leak, bleeding, bowel injury, GERD, cardiac, renal or pulmonary complications. The patient understood all the risks and was in agreement with the surgical plan. Hospital Course: The patient underwent an uneventful laparoscopic sleeve gastrectomy with gastropexy on the day of admission. Postoperatively, the patient was transferred to the surgical floor. The patient received IV Acetaminophen and IV dilaudid for pain control. Patient was started on bariatric phase 1 diet POD #0. On postoperative day one, the patient was feeling well without nausea, vomiting, fevers, or tachycardia. The patient had some mild incisional pain and the abdomen was soft. On the morning of postoperative day one, the patient was continued on 1 ounce of water or ice every half hour. During the day, the patient did fairly well, having some incisional pain, but able to ambulate adequately and to tolerate liquids well. Since the patient is doing well, we decided that the patient was ready to be discharged. The patient was given instructions to follow-up with me next week and to call my office for any fever over 101, persistent abdominal pain, nausea, vomiting, GERD, symptoms of DVT such as calf tenderness, or leg swelling, or pulmonary embolism such as chest pain or shortness of breath. The patient was also instructed to drink 40-60 ounces of liquids per day using the 1-ounce cups. The patient had been given prescriptions for Tylenol for pain, Zofran prn for nausea, and pantoprazole and carafate previously. The patient was encouraged to ambulate and use the incentive spirometer. The patient was allowed to shower, but no baths, and encouraged to stay active at home. All of these instructions were given to the patient personally. All questions were answered and the patient understood all instructions, the instructions were also given to the patient in print. Time Attestation Discharge coordination time: Less than 30 minutes Quality: Safe Use of Opioids Does Pt have an Active Cancer Diagnosis on the Problem List?: No Quality: Stroke Does the patient have a stroke diagnosis?: No Physical Exam Vital Signs: Vital Signs: Last Vital Signs Temp 98.3 F 11/04/23 10:12 Pulse 81 11/04/23 10:17 Resp 15 11/04/23 10:17 BP 124/70 11/04/23 10:17 Pulse Ox 95 11/04/23 10:17 O2 Del Method Simple Mask 11/04/23 10:17 O2 Flow Rate 6 11/04/23 10:17 BMI result Body Mass Index 44.3 DS: Data Data Completed and Pending Pending studies at discharge: Pending at discharge 11/04/23 09:34 Surgical [PTH] Routine Discharge Plan Discharge Anticipated Discharge Date/Time: 11/05/23 10:16 Patient Disposition: Home, Self-Care Discharge Diagnosis: s/p sleeve gastrectomy Referrals: Shane Hyde MD [Primary Care Provider] - 1 Week Discharge Medications: Continued nortriptyline 50 mg capsule 50 mg PO BEDTIME buspirone 15 mg tablet 7.5 - 15 mg PO BID PRN (Reason: anxiety) topiramate 100 mg tablet 100 mg PO BID acetaminophen 500 mg tablet 1,000 mg PO Q6H PRN (Reason: fever) pantoprazole 40 mg tablet,delayed release (DR/EC) 40 mg PO DAILY Qty: 90 0RF sucralfate 100 mg/mL suspension 10 ml PO BID Qty: 600 2RF ondansetron 4 mg tablet,disintegrating 4 mg PO Q12H Qty: 20 0RF Held oxycodone 5 mg tablet 5 mg PO Q4H Hold Instructions: Discuss with Dr Sparrow metoprolol succinate 25 mg tablet extended release 24 hr 12.5 mg PO DAILY Hold Instructions: Resume on 11/06/23. Check your blood pressure every morning as soon as you wake up and send it to Dr. Sparrow. Do no take the blood pressure medication if the blood pressure is below 120/70. Wait every day to hear back from Dr. Sparrow before you take the medication. methocarbamol 500 mg tablet 500 mg PO TID Hold Instructions: Resume on 11/26/23. Discontinued cholecalciferol (vitamin D3) 125 mcg (5,000 unit) capsule 125 mcg PO DAILY Qty: 90 0RF polyethylene glycol 3350 [Miralax] 17 gram powder in packet 17 g PO DAILY Qty: 14 0RF aspirin 81 mg tablet,delayed release (DR/EC) 81 mg PO DAILY Discharge Orders: Discharge Order (Routine); Ordered 11/05/23 Ordered By: Randy Sparrow Activity on Discharge: No heavy lifting Stand Alone Forms: Patient Portal Discharge page Care Plan Goals: weight loss Health Concerns: morbid obesity Plan of Treatment: No tub baths, sex or returning to work until discussed at first post op appointment. No exercise, alcohol, tobacco or illegal drug use. Continue to use incentive spirometer hourly while awake. Walk in home for 5- 10 minutes every 2 hours during the first week. Continue phase 1 diet today and start phase 2 diet tomorrow morning. Follow all instructions in the bariatric handbook and call with any questions. 1. Please call your doctor or come back to the emergency room should any new symptoms arise. 2. You will receive a courtesy call from [facility] 24-48 hours after discharge. 3. Activity: abstain from alcohol, practice limited stair climbing, no bending, no driving, no exercise, no illicit substances, no lifting, no sex, no tub bath, no work. 4. Diet: continue as discussed with bariatric team.. 5. Dressing Change/Wound Care: Do not change or remove surgical dressings unless they are wet or soiled. 6. Call your doctor if: - Your temperature exceeds 101.5 F - You experience excessive pain or swelling - You have an unexpected reaction to medication - You have excessive bleeding - You experience continued vomiting/nausea - Your incision begins to separate - Your incision shows signs of infection such as increased redness, swelling, excessive pain, heat, or drainage (light blood or clear fluid is normal) 7. General instructions: No lifting greater than 5 lbs for 1 week and not more than 20lbs the next 3?weeks. No driving until seen at the office in 5-7 days after surgery. If you do not move your bowels in the next 2 days, please tell?Dr. Sparrow. Please walk around your home every hour or two to prevent blood clots from forming in your legs. You do not need to wake from sleeping to walk. Please sleep in a bed or couch to prevent kinking at the hips and knees. Please take your incentive spirometer (your lung regulatory affairs coordinator) home with you and use it for the next few days to prevent pneumonia. You may shower, no hot tubs, baths or swimming pools.?Please follow the post op diet instructions you are?given by Dr Lacie aguilar? and text me daily at 5-6pm for an update.?If you have any issues or concerns or questions please communicate this to him via text.? The Celebrate shakes have all of the bariatric vitamins you need if you consume these shakes. If you are drinking other protein shakes, you will need to purchase the Celebrate multivitamins and calcium that are available in the hospital gift shop on the first floor of the main hospital.??Do not take anything without first discussing with Dr Sparrow. Please make sure you are consuming at least 40 ounces of fluids per day starting the?day AFTER your discharge from the hospital. Always drink 1-2 ml per minute using the 5ml?syringe. If you drink faster you may experience?bloating,?gas pain, burping, nausea or heartburn. In that case please slow down your pace and use the syringe to?understand better the?proper?pace and volume of drinking. Do not hesitate to contact the office with any questions at . The patient's medical history has been reviewed and they are considered low risk for post op DVT and therefore DVT prophylaxis is not considered necessary. Travel after surgery was reviewed. The patient has not disclosed any travel plans during the first 30 days after surgery and they have been advised that within the first 30 days after surgery any bus, plane, train or car travel over 2 hours in duration is contraindicated due to the possibility of developing blood clots from immobility. Any travel, needs to include periods of ambulation of 10 minutes in duration every 2 hours. The patient was instructed to discuss any plans for travel during this period with their bariatric surgeon. Assessment: stable, post op sleeve gastrectomy Discharge Date/Time: 11/05/23 09:23
[2023-11-04] MEDS: Haloperidol Lactate 5 MG/ML VIAL 1 MG IVPUSH (11:00)
[2023-11-04 11:06] LABS: Hematocrit 43.7 % (42.0-52.0); Hemoglobin 14.3 g/dl (14.0-18.0)
[2023-11-04 11:16] LABS: Anion Gap 15 (12-20); Blood Urea Nitrogen 12 mg/dL (9-16); Calcium 8.8 mg/dL (8.4-10.2); Carbon Dioxide 23 mmol/L (22-29); Chloride 105 mmol/L (96-108); Creatinine Clr Calc Pharmacy 154.2; Estimated Glomerular Filt Rate > 60; Glucose Random 127 mg/dL (60-115); Potassium 4.6 mmol/L (3.3-5.1); Sodium 138 mmol/L (135-145)
[2023-11-04] MEDS: Famotidine/PF 20 MG/2 ML VIAL IVPUSH ×2 (12:16→20:13)
[2023-11-04] MEDS: oxyCODONE HCl Immed Release 5 MG TABLET PO ×3 (13:03→20:12)
[2023-11-04] MEDS: ceFAZolin Sodium/Dextrose,Iso 2 GM/50 ML PIGGYBACK IV (13:25)
[2023-11-04] MEDS: Acetaminophen 1,000 MG/100 ML PIGGYBACK 16.7 MG IV ×2 (13:55→18:57)
--- NOTE | 2023-11-04 16:16 | PHA.MEDREC ---
Pharmacy Consult ? Medication Reconciliation Pharmacy has completed the medication reconciliation. Reviewed med rec done by nursing
[2023-11-04] MEDS: 0.9 % Sodium Chloride Flush 3 ML SYRINGE IVFLUSH (20:13)
[2023-11-05 00:33] VITALS: BP 135/73; PULSE 99
[2023-11-05] MEDS: Acetaminophen 1,000 MG/100 ML PIGGYBACK 16.7 MG IV (00:37)
[2023-11-05 03:06] VITALS: BP 140/78; PULSE 97; RESP 18; TEMP 36.6; O2SAT 94
[2023-11-05] MEDS: oxyCODONE HCl Immed Release 5 MG TABLET PO ×3 (04:05→08:08)
[2023-11-05 05:37] LABS: MANUAL DIFF FLAG NO
[2023-11-05 05:47] LABS: Basophils Percent Auto 0.1 % (0-2); Hematocrit 42.6 % (42.0-52.0); Hemoglobin 14.3 g/dl (14.0-18.0); Imm Gran Abs Auto 0.09 X10*3/uL (0.00-0.03); Imm Gran Pct Auto 0.6 % (0.0-0.4); Lymphocytes Absolute Auto 1.8 X10*3/uL (1.2-4.9); Lymphocytes Percent Auto 11.3 % (20-40); Mean Corpuscular HGB Conc 33.6 g/dl (31.0-36.0); Mean Corpuscular Hemoglobin 27.7 pg (27.0-33.0); Mean Corpuscular Volume 82.4 fL (80.0-98.0); Mean Platelet Volume 11.9 fL (9.4-12.4); Monocytes Absolute Auto 1.4 X10*3/uL (0.1-1.2); Monocytes Percent Auto 8.6 % (2-11); Neutrophils Absolute Auto 12.6 x10*3/uL (2.0-8.3); Neutrophils Percent Auto 79.4 % (45-73); Platelet Count 248 X10*3/uL (160-400); Red Blood Count 5.17 X10*6/uL (4.60-5.80); Red Cell Distribution Width 14.6 % (11.0-16.0); White Blood Count 15.9 X10*3/uL (4.8-10.8)
[2023-11-05 06:01] LABS: Anion Gap 18 (12-20); Blood Urea Nitrogen 10 mg/dL (9-16); Calcium 8.8 mg/dL (8.4-10.2); Carbon Dioxide 17 mmol/L (22-29); Chloride 108 mmol/L (96-108); Creatinine Clr Calc Pharmacy 155.6; Estimated Glomerular Filt Rate > 60; Glucose Random 108 mg/dL (60-115); Potassium 3.9 mmol/L (3.3-5.1); Sodium 139 mmol/L (135-145)
[2023-11-05] MEDS: Famotidine/PF 20 MG/2 ML VIAL IVPUSH (07:06)
[2023-11-05 07:58] VITALS: BP 132/70; PULSE 96; RESP 18; TEMP 36.8; O2SAT 94
--- NOTE | 2023-11-05 09:51 | MHC.CM.PN ---
Patient s/p gastric sleeve discharged to home self care prior to being seen by case management. Patient arranged for transportation home.
--- NOTE | 2023-11-05 16:59 | HO.POSTANES ---
Post Anesthesia Evaluation Post Anesthesia Evaluation Date of Service: 11/05/23 Vital Signs: Vital Signs Temp Pulse Resp BP Pulse Ox O2 Del Method 11/05/23 07:58 98.3 F 96 18 132/70 94 Room Air 11/05/23 07:29 Room Air Anesthesia: General Endotracheal-GETA Mental Status: Awake Pain Control: Satisfactory Nausea/Vomiting: None Hydration: Adequate Anesthesia-Related Issues: No Anes. Related Issues
== END 2023-11-05 09:23 | disposition home or self-care (01) | DRG 403 ==
LOC: HO.SSSA 10:17 → HO.S3 10:23
PROVIDERS: Physician Assistant; Admitting Provider Surgery; PCP Family Medicine; Visit Provider Surgery
PROC: (CPT 43845; principal; 2023-11-04 07:30)
DX: E66.01 Morbid (severe) obesity due to excess calories (principal); K74.00 Hepatic fibrosis, unspecified; F32.A Depression, unspecified; K76.0 Fatty (change of) liver, not elsewhere classified; G47.33 Obstructive sleep apnea (adult) (pediatric); Z68.41 Body mass index [BMI] 40.0-44.9, adult; F41.9 Anxiety disorder, unspecified; M54.9 Dorsalgia, unspecified; Z89.511 Acquired absence of right leg below knee; Z79.899 Other long term (current) drug therapy
CPT/HCPCS: 36415; 80048; 85014; 85018; 85025; 86850; 86900; 86901; 88304; 88305; 88307; 88342; 94640; A4649; C9088; C9145; J0131; J0690; J1100; J1170; J1630; J2250; J2405; J2704; J2795; J3010; J7120

== ENCOUNTER → 2023-11-04 06:06 | Outpatient (BNV) | payer OTHER, SELFPAY | PROVIDERS: Admitting Provider Surgery; PCP Family Medicine; Visit Provider Surgery | DX: E66.01 Morbid (severe) obesity due to excess calories (principal); Z68.41 Body mass index [BMI] 40.0-44.9, adult | CPT/HCPCS: 43659; 43775; 99024 ==

== ENCOUNTER 2023-11-11 13:25 | Outpatient (AMB) | payer OTHER, SELFPAY ==
--- NOTE | 2023-11-11 13:28 | A.OFFVIS_ITS ---
Intake VS Expanded 11/11/23 13:36 BP 145/53 H Blood Pressure Location Rt brachial Blood Pressure Position Sitting Pulse 96 Pulse Source Pulse Oximeter Temp 95.1 F L Temperature Source Temporal Artery Scan Pulse Oximetry 96 Oxygen Delivery Method Room Air Height 5 ft 9 in Weight 282 lb BMI 41.6 Intake Visit Reasons: (OV) 7 Days PO LSG 11/04/23 Hydrochloric Manufacturing Supervisor Required: No Allergies Opioids - Morphine Analogues Allergy (Mild, Verified 11/11/23 13:46) Swelling Medication List - Last Reconciled 11/11/23 by NABILA Valero acetaminophen 1,000 mg PO Q6H PRN buspirone 7.5 - 15 mg PO BID PRN methocarbamol 500 mg PO TID metoprolol succinate ER 12.5 mg PO DAILY nortriptyline 50 mg PO BEDTIME ondansetron 4 mg PO Q12H oxycodone 5 mg PO Q4H pantoprazole 40 mg PO DAILY sucralfate 10 mL PO BID topiramate 100 mg PO BID HPI HPI Comments History of Present Illness Details Patient is a pleasant 48-year-old male who returns to the office today, 7 days postoperatively laparoscopic sleeve gastrectomy. He is tolerating the celebrate 4 in 1 shakes, 3, with 1 scoop each and approximately 40-50 oz of water. He is moved his bowels and has no complaints today. [facility] Medical History (Updated 11/06/23 @ 00:04 by Lona Rolle) Asthma Sleep apnea Anxiety Depression Back pain HTN (hypertension) H. pylori infection Morbid obesity Surgical History S/P laparoscopic sleeve gastrectomy Hx of leg amputation History of surgery on arm Family History Mother Carpal tunnel syndrome Fibromyalgia Asthma Father No problems noted. Daughter Asthma Daughter Asthma Daughter Asthma Daughter Asthma Son Asthma Son Asthma Son Asthma Social History Household Members: Spouse Housing: Apartment Are you a primary campground caretaker to a significant other at home: No Do you presently have visiting nurse or other home services: No Alcohol intake: never Patient Tobacco Use Status: Never used Tobacco Physical Exam Vital Signs: Last Vital Signs Temp 95.1 F L 11/11/23 13:36 Pulse 96 11/11/23 13:36 BP 145/53 H 11/11/23 13:36 Pulse Ox 96 11/11/23 13:36 Oxygen Delivery Method Room Air 11/11/23 13:36 BMI result Body Mass Index 42.5 GI Inspection: Yes incision (Clean, dry, intact.) Assessment & Plan Assessment & Plan (1) S/P laparoscopic sleeve gastrectomy: Code(s): Z98.84 - Bariatric surgery status Plan: POD 7 s/p LSG on 11/04/[address] Sparrow Weight loss prior to surgery was 30 pounds or 9.1 % TBWL. Original weight on 11/01/2022 was 327 pounds and op weight was 297.2 pounds. His wssdr-sgs-drkh prosthetic weighs 6 lb Be sure to text Dr Sparrow exactly 1 week after surgery your weight from your home scale so he can adjust your meal plan. Continue meal plan until f/u w [facility] in 2 weeks May shower, no submersion in bath for another week Continue abdominal binder with activity and exercise for the next 2 weeks. Exercise prior to surgery was treadmill and bike, may resume No abdominal exercises for 6 weeks post operatively Will be emailed link to post op video for review Reminded of the pace of drinking, 2 mL per minute, 1 oz/15 min. Coding Level of Care Code Global (98230) Diagnoses S/P laparoscopic sleeve gastrectomy Z98.84
[2023-11-11 13:36] VITALS: BP 145/53; PULSE 96; TEMP 35.1; O2SAT 96; BMI 41.6
== END 2023-11-11 14:01 | disposition home or self-care (01) ==
PROVIDERS: PCP Family Medicine; Visit Provider Physician Assistant Surgical
DX: E66.01 Morbid (severe) obesity due to excess calories (principal); Z68.41 Body mass index [BMI] 40.0-44.9, adult; Z90.3 Acquired absence of stomach [part of]; Z98.84 Bariatric surgery status
CPT/HCPCS: 99024

== ENCOUNTER → 2023-11-11 13:25 | Outpatient (BNVA) | payer OTHER, SELFPAY | PROVIDERS: PCP Family Medicine; Visit Provider Physician Assistant Surgical | DX: Z48.815 Encounter for surgical aftercare following surgery on the digestive system (principal); Z98.84 Bariatric surgery status | CPT/HCPCS: 99212 ==

== ENCOUNTER 2023-12-05 11:36 | Outpatient (AMB) | payer OTHER, SELFPAY ==
--- NOTE | 2023-12-05 11:38 | MHC.OFFVISWM ---
Intake VS Expanded 12/05/23 11:45 BP 126/64 Blood Pressure Location Rt brachial Blood Pressure Position Sitting Pulse 73 Pulse Source Pulse Oximeter Temp 97.5 F Temperature Source Temporal Artery Scan Pulse Oximetry 95 Oxygen Delivery Method Room Air Height 5 ft 9 in Weight 264 lb BMI 39.0 Intake Visit Reasons: (OV) PO LSG 11/04/23 Industrial Seamstress Required: No Allergies Opioids - Morphine Analogues Allergy (Mild, Verified 12/05/23 11:43) Swelling Medication List - Last Reconciled 12/05/23 by NABILA Valero acetaminophen 1,000 mg PO Q6H PRN buspirone 7.5 - 15 mg PO BID PRN methocarbamol 500 mg PO TID nortriptyline 50 mg PO BEDTIME oxycodone 5 mg PO Q4H pantoprazole 40 mg PO DAILY sucralfate 10 mL PO BID topiramate 100 mg PO BID HPI HPI Comments History of Present Illness Details This?a?48?yo male who is s/p LSG without hiatal hernia repair on?11/04/2023. Presents for one-month post op visit. Weight today is 264 pounds, with a BMI of 39. There has been a 63 pound weight loss,(initial weight 327 pounds) since starting the program on 11/01/22 reflecting a 19.2% total body weight loss and a weight loss of 33.2 pounds since surgery (operative weight 297.2 pounds) reflecting a 11.1% TBWL since surgery. No complaints of nausea, emesis, abdominal pain or reflux. Reports infrequent but normal bowel movements every [] days and uses stool softeners regularly. His qaure-ghg-vgsg prosthetic weighs 6 lb He was supposed to do 2 celebrate 4 in 1 and one Orgain w 2 scoops Present meal plan includes: Celebrate 4 in 1 2 scoops 8 oz almond milk, 730-930, 12-2, 4-6 ? Exercise routine includes: complains of left back pain radiating to thigh preventing him from formal exercise. Has f/u in a few weeks w land acquisition specialist. [facility] Medical History (Updated 11/06/23 @ 00:04 by Background Dala) Asthma Sleep apnea Anxiety Depression Back pain HTN (hypertension) H. pylori infection Morbid obesity Surgical History S/P laparoscopic sleeve gastrectomy Hx of leg amputation History of surgery on arm Family History Mother Carpal tunnel syndrome Fibromyalgia Asthma Father No problems noted. Daughter Asthma Daughter Asthma Daughter Asthma Daughter Asthma Son Asthma Son Asthma Son Asthma Social History Household Members: Spouse Housing: Apartment Are you a primary manager intensive care unit to a significant other at home: No Do you presently have visiting nurse or other home services: No Alcohol intake: never Patient Tobacco Use Status: Never used Tobacco Physical Exam Vital Signs: Last Vital Signs Temp 97.5 F 12/05/23 11:45 Pulse 73 12/05/23 11:45 BP 126/64 12/05/23 11:45 Pulse Ox 95 12/05/23 11:45 Oxygen Delivery Method Room Air 12/05/23 11:45 GI Inspection: Yes incision (all healing nicely) Assessment & Plan Assessment & Plan (1) S/P laparoscopic sleeve gastrectomy: Code(s): Z98.84 - Bariatric surgery status Plan: Overall, the patient is doing fairly well. He did change the orgain to the celebrate 4 in 1. He is having too much celebrate 4 in 1 and I recommend using 2 shakes of the celebrate 4 in 1 and 1 shake of the celebrate rebuild. Will do this as he does not like the taste of orgain anymore. Additionally discussed starting walking on the treadmill or outside. States that he does have chronic left-sided low back pain with radiculopathy and is followed by a land acquisition specialist in the community. I offered a 2nd opinion from our spine center and he is going to consider this. He will text me if he wishes a referral. Follow-up in the office in 3-4 weeks. Coding Level of Care Code Global (55327) Diagnoses S/P laparoscopic sleeve gastrectomy Z98.84
[2023-12-05 11:45] VITALS: BP 126/64; PULSE 73; TEMP 36.4; O2SAT 95; BMI 39.0
== END 2023-12-05 12:16 | disposition home or self-care (01) ==
PROVIDERS: PCP Family Medicine; Visit Provider Physician Assistant Surgical
DX: E66.9 Obesity, unspecified (principal); Z68.39 Body mass index [BMI] 39.0-39.9, adult; Z90.3 Acquired absence of stomach [part of]; Z98.84 Bariatric surgery status
CPT/HCPCS: 99024

== ENCOUNTER → 2023-12-05 11:36 | Outpatient (BNVA) | payer OTHER, SELFPAY | PROVIDERS: PCP Family Medicine; Visit Provider Physician Assistant Surgical | DX: E66.01 Morbid (severe) obesity due to excess calories (principal); M54.9 Dorsalgia, unspecified; Z68.39 Body mass index [BMI] 39.0-39.9, adult; Z90.3 Acquired absence of stomach [part of] | CPT/HCPCS: 99212 ==

== ENCOUNTER 2023-12-29 11:24 | Outpatient (AMB) | payer OTHER, SELFPAY ==
--- NOTE | 2023-12-29 11:25 | MHC.OFFVISWM ---
Intake VS Expanded 12/29/23 11:32 BP 132/79 Blood Pressure Location Rt brachial Blood Pressure Position Sitting Pulse 74 Pulse Source Pulse Oximeter Temp 97.0 F Temperature Source Temporal Artery Scan Pulse Oximetry 97 Oxygen Delivery Method Room Air Height 5 ft 9 in Weight 248 lb 6.4 oz BMI 36.7 Intake Visit Reasons: (OV) PO LSG 11/04/23 Grave Digger Required: No Allergies Opioids - Morphine Analogues Allergy (Mild, Verified 12/05/23 11:43) Swelling Medication List - Last Reconciled 12/29/23 by NABILA Valero acetaminophen 1,000 mg PO Q6H PRN buspirone 7.5 - 15 mg PO BID PRN methocarbamol 500 mg PO TID nortriptyline 50 mg PO BEDTIME oxycodone 5 mg PO Q4H pantoprazole 40 mg PO DAILY sucralfate 10 mL PO BID topiramate 100 mg PO BID HPI HPI Comments History of Present Illness Details This?a?48?yo male who is s/p LSG without hiatal hernia repair on?11/04/2023. Presents for 6 weeks post op visit. Weight today is 248.4 pounds, with a BMI of 36.7. There has been a 78.6 pound weight loss,(initial weight 327 pounds) since starting the program on 11/01/22 reflecting a 24% total body weight loss and a weight loss of 48.8 pounds since surgery (operative weight 297.2 pounds) reflecting a 16.4% TBWL since surgery. No complaints of nausea, emesis, abdominal pain or reflux. Reports infrequent but normal bowel movements every 1-2 days and uses stool softeners regularly. He is seeing his back specialist Dr Delilah Hyde, [facility] [place] 01/05/24. He is happy with his meal plan and does not want to change His xtvbi-ldw-konk prosthetic weighs 6 lb Present meal plan includes: Celebrate 4 in 1 2 scoops 8 oz almond milk, 730-930, 12-2 Celebrate rebuild 4-6 Drinking 32-48 oz water ? Exercise routine includes: complains of left back pain radiating to thigh preventing him from formal exercise. Has f/u in a few weeks w employee benefits specialist. [facility] Medical History Asthma Sleep apnea Anxiety Depression Back pain HTN (hypertension) H. pylori infection Morbid obesity Surgical History S/P laparoscopic sleeve gastrectomy Hx of leg amputation History of surgery on arm Family History Mother Carpal tunnel syndrome Fibromyalgia Asthma Father No problems noted. Daughter Asthma Daughter Asthma Daughter Asthma Daughter Asthma Son Asthma Son Asthma Son Asthma Social History Household Members: Spouse Housing: Apartment Are you a primary health care technician to a significant other at home: No Do you presently have visiting nurse or other home services: No Alcohol intake: never Patient Tobacco Use Status: Never used Tobacco Physical Exam Const General: healthy appearing and no acute distress Resp Effort & Inspection: normal respiratory effort Auscultation: clear to auscultation bilaterally Cardio Rate: regular rate Rhythm: regular rhythm GI Auscultation: normal bowel sounds Extrem General: Yes normal to inspection Assessment & Plan Assessment & Plan (1) S/P laparoscopic sleeve gastrectomy: Code(s): Z98.84 - Bariatric surgery status Plan: losing weight and making good progress despite no exercise. Again discussed swimming or walking in the pool at [facility]. He has appt w employee benefits specialist 01/05/24. offered second opinion w [facility] specialists here at [facility]. Continue current plans and rtc 3-4 weeks Coding Level of Care Code Global (40299) Diagnoses S/P laparoscopic sleeve gastrectomy Z98.84
[2023-12-29 11:32] VITALS: BP 132/79; PULSE 74; TEMP 36.1; O2SAT 97; BMI 36.7
== END 2023-12-29 11:55 | disposition home or self-care (01) ==
PROVIDERS: PCP Family Medicine; Visit Provider Physician Assistant Surgical
DX: E66.9 Obesity, unspecified (principal); Z68.36 Body mass index [BMI] 36.0-36.9, adult; Z90.3 Acquired absence of stomach [part of]; Z98.84 Bariatric surgery status
CPT/HCPCS: 99024

== ENCOUNTER → 2023-12-29 11:24 | Outpatient (BNVA) | payer OTHER, SELFPAY | PROVIDERS: PCP Family Medicine; Visit Provider Physician Assistant Surgical | DX: Z98.84 Bariatric surgery status (principal) | CPT/HCPCS: 99212 ==

== ENCOUNTER 2024-05-25 18:28 | Emergency (ER) | payer OTHER, SELFPAY ==
[2024-05-25 18:48] VITALS: BP 127/70; PULSE 65; RESP 18; TEMP 36.6; O2SAT 98; BMI 29.9
--- NOTE | 2024-05-25 18:53 | ED_ITS ---
HPI - General Adult General Chief complaint: Dental/Oral Stated complaint: Dental pain/Facial swelling Time Seen by Provider: 05/25/24 18:53 Source: patient, RN notes reviewed, old records reviewed and educational interpreter Mode of arrival: ambulatory Limitations: language barrier History of Present Illness ED Provider: Guillermo HPI narrative: 48-year-old male presents for evaluation of left lower facial pain and dental pain. Patient has had pain and swelling for the last 5 days Patient thinks he may have ?an infection on my molar. ? He reports that he plans to see a dentist but reports that he ?wants to make sure there is no infection before I see them. Denies any fevers or chills. He has no difficulty swallowing Related Data Home Medications ?Medication ?Instructions ?Recorded ?Confirmed acetaminophen 500 mg tablet 1,000 mg PO Q6H PRN fever 11/22/22 12/29/23 buspirone 15 mg tablet 7.5 - 15 mg PO BID PRN anxiety 11/22/22 12/29/23 methocarbamol 500 mg tablet 500 mg PO TID 11/22/22 12/29/23 nortriptyline 50 mg capsule 50 mg PO BEDTIME 11/22/22 12/29/23 oxycodone 5 mg tablet 5 mg PO Q4H 11/22/22 12/29/23 topiramate 100 mg tablet 100 mg PO BID 11/22/22 12/29/23 Previous Rx's ?Medication ?Instructions ?Recorded pantoprazole 40 mg tablet,delayed 40 mg PO DAILY #90 tabs 10/27/23 release sucralfate 100 mg/mL oral 10 ml PO BID #600 mL 10/27/23 suspension amoxicillin 875 mg-potassium 1 tab PO Q12H #14 tabs 05/25/24 clavulanate 125 mg tablet Allergies Allergy/AdvReac Type Severity Reaction Status Date / Time Opioids - Morphine Analogues Allergy Mild Swelling Verified 05/25/24 18:53 Review of Systems Constitutional: Constitutional: Denies body ache(s), Denies chills, Denies fever(s) and Denies headache(s) ENT: Denies headache(s) and Reports mouth pain Cardiovascular: Cardiovascular: Denies dyspnea Respiratory: Respiratory: Denies dyspnea Neurologic: Denies headache(s) [facility] [place] Past Medical History Medical History Asthma Sleep apnea Anxiety Depression Back pain HTN (hypertension) H. pylori infection Morbid obesity Surgical History S/P laparoscopic sleeve gastrectomy Hx of leg amputation History of surgery on arm Family History Family History Mother Carpal tunnel syndrome Fibromyalgia Asthma Father No problems noted. Daughter Asthma Daughter Asthma Daughter Asthma Daughter Asthma Son Asthma Son Asthma Son Asthma Social History Social History Household Members: Spouse Housing: Apartment Are you a primary childcare director to a significant other at home: No Do you presently have visiting nurse or other home services: No Alcohol intake: never Patient Tobacco Use Status: Never used Tobacco Advance Directives: No Advance Directives Information Provided: No Do you have a plan to hurt others: No Plan Physical Exam ED Vital Signs: Vital Signs - 24 hr 05/25/24 18:48 Temperature 97.9 F Pulse Rate 65 Respiratory Rate 18 Blood Pressure 127/70 Pulse Oximetry 98 Oxygen Delivery Method Room Air BMI result Body Mass Index 29.9 Const General: healthy appearing, comfortable, no acute distress, alert and awake Nutritional Appearance: well nourished Orientation/consciousness: patient oriented x3 HENMT Other: Patient has mild left lower facial edema. He appears to have gingival edema around the left lower 1st molar. No obvious drainable abscess. There are some dental caries but no evidence of dental fractures Head: Yes normocephalic and Yes atraumatic Eyes Eyelids: Yes eyelids normal Conjunctivae: conjunctivae normal Sclerae: sclerae normal Corneas: corneas normal Pupils: Equal, round and reactive pupils present EOM: EOMs intact bilaterally Neck Neck: Yes full ROM Resp Effort & Inspection: normal respiratory effort, able to speak in complete sentences and not labored Skin General skin exam: elasticity normal Neuro General: patient oriented x3 Cranial nerves: Yes Equal, round and reactive pupils present and Yes Bilaterally intact EOM present Cognition (Neuro): normal cognition Extrem Other: Moving all extremities well without any obvious deformities Medical Decision Making Medical Decision Making MDM Narrative: 48-year-old male presents for evaluation of left facial pain and swelling. He does have symptoms consistent with a dental infection. We will treat with Augmentin b.i.d. x7 days and he will follow-up with a dentist I Differential Diagnosis Differential Diagnoses: The differential diagnosis associated with the presentation includes Facial swelling Dental caries Dental abscess Gingivitis Discharge Plan Discharge Clinical Impression: Acute facial pain, Dental caries Patient Disposition: Home, Self-Care Instructions: Toothache (ED) Additional Instructions: Take Augmentin twice daily for the next 7 days Apply warm compresses to the swollen area Use ibuprofen/Tylenol for pain You may also use [id number] Orajel Follow-up with your dentist for definitive treatment Prescriptions: New amoxicillin-pot clavulanate 875-125 mg tablet 1 tab PO Q12H Qty: 14 0RF No Action oxycodone 5 mg tablet 5 mg PO Q4H nortriptyline 50 mg capsule 50 mg PO BEDTIME buspirone 15 mg tablet 7.5 - 15 mg PO BID PRN (Reason: anxiety) topiramate 100 mg tablet 100 mg PO BID acetaminophen 500 mg tablet 1,000 mg PO Q6H PRN (Reason: fever) methocarbamol 500 mg tablet 500 mg PO TID pantoprazole 40 mg tablet,delayed release (DR/EC) 40 mg PO DAILY Qty: 90 0RF sucralfate 100 mg/mL suspension 10 ml PO BID Qty: 600 2RF Interventions: ED Discharge Assessment Last Done: 05/25/24 19:24 Print Language: Citizen Of [place]
[2024-05-25 19:24] VITALS: BP 127/70; PULSE 65; RESP 18; TEMP 36.6; O2SAT 98
== END 2024-05-25 19:25 | disposition home or self-care (01) ==
PROVIDERS: Emergency Provider Emergency Medicine; PCP Family Medicine
DX: R51.9 Headache, unspecified (principal); K02.9 Dental caries, unspecified
CPT/HCPCS: 99282; 99283

== ENCOUNTER 2024-10-28 20:25 | Emergency (ER) | payer OTHER, SELFPAY ==
[2024-10-28 20:27] VITALS: BP 122/69; PULSE 69; RESP 18; TEMP 36.1; O2SAT 97; BMI 27.6
--- NOTE | 2024-10-28 20:42 | ED_ITS ---
HPI - Extremity Injury (Lower) General Chief Complaint: Extremity Injury, Lower Stated Complaint: right leg rash Time Seen by Provider: 10/29/24 02:10 Source: patient Mode of arrival: ambulatory Limitations: no limitations History of Present Illness ED Provider: HPI Narrative: Patient with right BKA wearing the prosthesis which is new for last 3 months has a small open wound on the medial aspect of the knee but for last 1 week noticed rash in right thigh which is itchy Related Data Home Medications ?Medication ?Instructions ?Recorded ?Confirmed acetaminophen 500 mg tablet 1,000 mg PO Q6H PRN fever 11/22/22 12/29/23 buspirone 15 mg tablet 7.5 - 15 mg PO BID PRN anxiety 11/22/22 12/29/23 methocarbamol 500 mg tablet 500 mg PO TID 11/22/22 12/29/23 nortriptyline 50 mg capsule 50 mg PO BEDTIME 11/22/22 12/29/23 oxycodone 5 mg tablet 5 mg PO Q4H 11/22/22 12/29/23 topiramate 100 mg tablet 100 mg PO BID 11/22/22 12/29/23 Previous Rx's ?Medication ?Instructions ?Recorded pantoprazole 40 mg tablet,delayed 40 mg PO DAILY #90 tabs 10/27/23 release sucralfate 100 mg/mL oral 10 ml PO BID #600 mL 10/27/23 suspension amoxicillin 875 mg-potassium 1 tab PO Q12H #14 tabs 05/25/24 clavulanate 125 mg tablet diphenhydramine HCl 25 mg capsule 50 mg (2 x 25 mg) PO TID PRN 10/29/24 (Benadryl) allergic reaction #30 caps doxycycline hyclate 100 mg tablet 100 mg PO BID #20 tabs 10/29/24 prednisone 20 mg tablet 40 mg (2 x 20 mg) PO DAILY #10 tabs 10/29/24 Allergies Allergy/AdvReac Type Severity Reaction Status Date / Time Opioids - Morphine Analogues Allergy Mild Swelling Verified 10/28/24 20:35 Review of Systems Review of Systems: Yes all other systems are reviewed and are negative PMFSH Past Medical History Medical History Asthma Sleep apnea Anxiety Depression Back pain HTN (hypertension) H. pylori infection Morbid obesity Surgical History S/P laparoscopic sleeve gastrectomy Hx of leg amputation History of surgery on arm Family History Family History Mother Carpal tunnel syndrome Fibromyalgia Asthma Father No problems noted. Daughter Asthma Daughter Asthma Daughter Asthma Daughter Asthma Son Asthma Son Asthma Son Asthma Social History Social History Household Members: Spouse Housing: Apartment Are you a primary certified caregiver to a significant other at home: No Do you presently have visiting nurse or other home services: No Alcohol intake: never Patient Tobacco Use Status: Never used Tobacco Advance Directives: No Do you have a plan to hurt others: No Plan Physical Exam Vital Signs: Vital Signs: Last Vital Signs Temp 97.7 F 10/29/24 03:24 Pulse 54 10/29/24 03:24 Resp 17 10/29/24 03:24 BP 112/59 L 10/29/24 03:24 Pulse Ox 97 10/29/24 03:24 O2 Del Method Room Air 10/29/24 03:24 BMI result Body Mass Index 27.6 Appearance: Alert. Oriented X3. No acute distress. Eyes: No pallor or icterus ENT: Pharynx normal. Oral Mucosa moist Neck: Normal inspection. Neck supple. CVS: Normal heart rate and rhythm. Pulses normal. Respiratory: No respiratory distress. Equal air entry bilateral, no wheezing/rales/rhonchi Abdomen: Soft and nontender. Bowel sounds are present, no mass palpable, no CVA tenderness Skin: Skin warm and dry. Normal skin color. Normal skin turgor. Blanching eczematous rash over the right thigh where does have the lining of prosthesis Extremities: No lower extremity edema. No calf tenderness ,right BKA, small open wound on the medial aspect of the TBI Neuro: Oriented X 3. No motor deficit. No sensory deficit.No cerebellar signs , cranial nerves II-XII intact Course Course Course Narrative: This is a rapid medical exam performed by Milena Linder PA-C. Patient is a 49-year-old male who is status post right below the knee amputation greater than 20 years ago, with a new prostheses within the past 2-3 months, who has developed a rash over the right lower extremity over the past week. Patient states he developed irritation over the knee, in turn it progressed to a rash that spans up to the thigh. It is raised at times, circular, the lesions coalesce and weep, now they are dry. Concern for strep/ versus staph versus vasculitis? We will be screening basic labs, inflammatory markers blood cultures lactic acid. The patient is hemodynamically stable and can return to the waiting room pending his full medical assessment. Medications Administered Discontinued Medications Generic Name Dose Route Start Last Admin Trade Name Freq PRN Reason Stop Dose Admin Diphenhydramine HCl 50 mg 10/29/24 02:41 10/29/24 03:02 Diphenhydramine Hcl 25 Mg Capsule PO 10/29/24 02:42 50 mg ONCE ONE Administration Doxycycline Monohydrate 100 mg 10/29/24 02:41 10/29/24 03:02 Doxycycline Monohydrate 100 Mg Capsule PO 10/29/24 02:42 100 mg ONCE ONE Administration Prednisone 60 mg 10/29/24 02:41 10/29/24 03:02 Prednisone 20 Mg Tablet PO 10/29/24 02:42 60 mg ONCE ONE Administration Medical Decision Making Medical Decision Making MDM Narrative: Clinically patient has contact dermatitis under the area very the prosthesis lining which she been using for last 20 years. Will prescribe prednisone and Benadryl advised to follow up with PCP Differential Diagnosis Differential Diagnoses: The differential diagnosis associated with the presentation includes Urticaria, contact dermatitis Cellulitis Discharge Plan Discharge Clinical Impression: Dermatitis, Wound discharge Patient Disposition: Home, Self-Care Instructions: Dermatitis (ED), Chronic Wounds (ED) Additional Instructions: Local care of the wound as advised Clinically you have contact dermatitis as the cause of the rash Do not wear any prosthesis for now Take medication and antibiotic as prescribed Report to the ER/PCP if the rash gets worse Prescriptions: New prednisone 20 mg tablet 40 mg PO DAILY Qty: 10 0RF doxycycline hyclate 100 mg tablet 100 mg PO BID Qty: 20 0RF diphenhydramine HCl [Benadryl] 25 mg capsule 50 mg PO TID PRN (Reason: allergic reaction) Qty: 30 0RF No Action amoxicillin-pot clavulanate 875-125 mg tablet 1 tab PO Q12H Qty: 14 0RF oxycodone 5 mg tablet 5 mg PO Q4H nortriptyline 50 mg capsule 50 mg PO BEDTIME buspirone 15 mg tablet 7.5 - 15 mg PO BID PRN (Reason: anxiety) topiramate 100 mg tablet 100 mg PO BID acetaminophen 500 mg tablet 1,000 mg PO Q6H PRN (Reason: fever) methocarbamol 500 mg tablet 500 mg PO TID pantoprazole 40 mg tablet,delayed release (DR/EC) 40 mg PO DAILY Qty: 90 0RF sucralfate 100 mg/mL suspension 10 ml PO BID Qty: 600 2RF Interventions: ED Discharge Assessment Last Done: 10/29/24 03:24 Discharge Date/Time: 10/29/24 03:24 Print Language: [place]
[2024-10-29] MEDS: diphenhydrAMINE HCL 25 MG CAPSULE 50 MG PO (03:02)
[2024-10-29] MEDS: predniSONE 20 MG TABLET 60 MG PO (03:02)
[2024-10-29] MEDS: Doxycycline Monohydrate 100 MG CAPSULE PO (03:02)
[2024-10-29 03:24] VITALS: BP 112/59; PULSE 54; RESP 17; TEMP 36.5; O2SAT 97
== END 2024-10-29 03:24 | disposition home or self-care (01) ==
PROVIDERS: Emergency Provider Internal Medicine; PCP Family Medicine
DX: L30.9 Dermatitis, unspecified (principal); L29.9 Pruritus, unspecified; R21 Rash and other nonspecific skin eruption; Z79.899 Other long term (current) drug therapy
CPT/HCPCS: 99283